=== PATIENT | female | born 2005 | race Caucasian/White ===

== ENCOUNTER 2023-04-04 09:46 | Outpatient (OUT) | payer OTHER, SELFPAY ==
--- NOTE | 2023-04-04 09:47 | US_ITS ---
[address] [address] Patient Name: MACIEJ BARAHONA MRN: [id number] date: 2005 Sex: F Assigned Patient Location: US Current Patient Location: US Accession/Order Number: [id number] Exam Date: 04/04/2023 09:47 Report Date: 04/04/2023 15:45 At the request of: DAGMAR PERLA Procedure: US OB transvaginal EXAMINATION: US OB transvaginal HISTORY: BLEEDING IN EARLY COMPARISON: Ultrasound transvaginal 03/15/2023 FINDINGS: GESTATIONAL SAC: Present and normal appearing. YOLK SAC: Present and normal appearing. POLE: Present and normal appearing. CARDIAC: Present. UTERUS: Normal size and appearance. OVARIES: Right: Normal. Left: Normal. CERVIX: 4.7 cm in length and closed. CUL-DE-SAC: Normal. OTHER: None. AGE BY LMP: 11 weeks 3 days KIYA BY LMP: 10/21/2023 AGE BY US CRL: 12 weeks 2 days KIYA BY US CRL: 10/15/2023 IMPRESSION: 1. Single live intrauterine . Electronically authenticated by: SIENNA POWERS Date: 04/04/2023 15:45
== END 2023-04-04 09:47 ==
LOC: US 09:46
PROVIDERS: Visit Provider Obstetrics & Gynecology
DX: O20.9 Hemorrhage in early pregnancy, unspecified (principal)
CPT/HCPCS: 76817

== ENCOUNTER 2023-04-14 10:41 | Outpatient (OUT) | payer OTHER, SELFPAY ==
[2023-04-14 11:36] LABS: Basophils Percent Auto 0.4 % (0.2-2.0); Eosinophils Absolute Auto 0.2 10^3/uL (0.0-0.7); Eosinophils Percent Auto 2.3 % (0.9-7.0); Hematocrit 41.1 % (36.0-48.0); Hemoglobin 13.7 g/dL (12.0-16.0); Immature Granulocytes Abs Auto 0.05 10^3/uL (0.00-0.03); Immature Granulocytes Pct Auto 0.6 % (0.0-0.5); Lymphocytes Absolute Auto 1.3 10^3/uL (1.2-3.8); Lymphocytes Percent Auto 17.3 % (20.5-60.0); Mean Corpuscular HGB Conc 33.3 g/dL (29.9-35.2); Mean Corpuscular Hemoglobin 28.2 pg (26.7-34.0); Mean Corpuscular Volume 84.6 fL (81.0-99.0); Mean Platelet Volume 8.9 fL (9.5-13.5); Monocytes Absolute Auto 0.4 10^3/uL (0.3-0.8); Monocytes Percent Auto 5.7 % (1.7-12.0); Neutrophils Absolute Auto 5.7 10^3/uL (1.4-6.5); Neutrophils Percent Auto 73.7 % (43.0-75.0); Platelet Count 251 10^3/uL (150-450); Red Blood Count 4.86 10^6/uL (4.20-5.40); Red Cell Distribution Width 13.6 % (11.0-15.0); White Blood Count 7.8 10^3/uL (4.0-11.0)
[2023-04-14 11:57] LABS: Estimated Average Glucose 91 mg/dL; Glycohemoglobin A1C 4.8 % (4.5-6.2)
[2023-04-14 13:37] LABS: Thyroid Stimulating Hormone 0.469 uIU/mL (0.516-4.130)
[2023-04-15 08:16] LABS: HBsAg Screen Negative (Negative); HCV Ab Non Reactive (Non Reactive); HIV Ab/p24 Ag Screen Non Reactive (Non Reactive); Rubella Antibodies, IgG <0.90 index (Immune >0.99)
[2023-04-15 09:07] LABS: Rapid Plasma Reagin, Quant Non Reactive (NonRea<1:1)
== END 2023-04-14 10:42 | disposition home or self-care (01) ==
PROVIDERS: Visit Provider Obstetrics & Gynecology
DX: N91.2 Amenorrhea, unspecified (principal)
CPT/HCPCS: 36415; 83036; 84443; 85025; 86592; 86762; 86803; 86850; 86900; 86901; 87086; 87340; 87389

== ENCOUNTER 2023-05-14 11:27 | Outpatient (OUT) | payer OTHER, SELFPAY ==
[2023-05-14 13:41] LABS: BOX Test Sent Out YES
[2023-05-17 00:07] LABS: AFP Value 44.1 ng/mL (.); Gestat. Age Based On As provided (.); Insulin Dep Diabetes No (.); OSBR Risk 1 IN 10000 (.); Results Report (.)
== END 2023-05-14 11:28 | disposition home or self-care (01) ==
LOC: LAB 11:30
PROVIDERS: Visit Provider Obstetrics & Gynecology
DX: Z34.92 Encounter for supervision of normal pregnancy, unspecified, second trimester (principal)
CPT/HCPCS: 36415; 82105

== ENCOUNTER 2023-05-28 12:55 | Outpatient (OUT) | payer OTHER, SELFPAY ==
--- NOTE | 2023-05-28 13:02 | US_ITS ---
[address] [address] Patient Name: MACIEJ BARAHONA MRN: [id number] date: 2005 Sex: F Assigned Patient Location: US Current Patient Location: US Accession/Order Number: [id number] Exam Date: 05/28/2023 13:10 Report Date: 05/28/2023 16:21 At the request of: DAGMAR PERLA Procedure: US OB transvaginal EXAMINATION: US OB anatomy, US OB transvaginal HISTORY: SECOND TRIMESTER Z34.92 COMPARISON: No relevant comparison available. TECHNIQUE: Transabdominal sonographic examination was performed for obstetrical and evaluation. FINDINGS: Number: 1 Heart Rate: 150 H.B. /min Amniotic Fluid Volume: Subjectively normal Placental Location: Anterior with lower margin 5.4 cm from os Cervix Length: 3.9 cm, closed. ANATOMY: Normal Structures -cerebellum, choroid plexus, cisterna magna, lateral cerebral ventricles, orbits, midline falx, hard palate, four-chamber heart, RVOT, LVOT, stomach, kidneys, bladder, umbilical cord insertion into abdomen, three-vessel cord, cervical spine, thoracic spine, lumbar spine, sacral spine, right upper extremity, left upper extremity, right lower extremity, left lower extremity. SUBOPTIMALLY SEEN: Hard palate ABNORMALITIES: None BIOMETRY: BPD: 4.7 cm 20 weeks 1 day HC: 17.5 cm 20 weeks 0 days AC: 15.2 cm 20 weeks 3 days FL: 3.1 cm 19 weeks 4 days EFW:3280 g; 47% FL/AC: 20.44 FL/BPD: 66.5 HC/AC: 1.15 GESTATIONAL AGE: Age by EDC: 20 weeks 0 days KIYA by EDC: 10/15/2023 Age by current US: 20 weeks 0 days KIYA by current US: 10/15/2023 US/US OB transvaginal IMPRESSION: 1. Single live intrauterine with growth detailed above. 2. Suboptimal visualization of the hard palate due to position. Follow-up recommended. Electronically authenticated by: SIENNA POWERS Date: 05/28/2023 16:21
--- NOTE | 2023-05-28 13:02 | US_ITS ---
[address] [address] Patient Name: MACIEJ BARAHONA MRN: [id number] date: 2005 Sex: F Assigned Patient Location: US Current Patient Location: US Accession/Order Number: [id number] Exam Date: 05/28/2023 13:10 Report Date: 05/28/2023 16:21 At the request of: DAGMAR PERLA Procedure: US OB anatomy EXAMINATION: US OB anatomy, US OB transvaginal HISTORY: SECOND TRIMESTER Z34.92 COMPARISON: No relevant comparison available. TECHNIQUE: Transabdominal sonographic examination was performed for obstetrical and evaluation. FINDINGS: Number: 1 Heart Rate: 150 H.B. /min Amniotic Fluid Volume: Subjectively normal Placental Location: Anterior with lower margin 5.4 cm from os Cervix Length: 3.9 cm, closed. ANATOMY: Normal Structures -cerebellum, choroid plexus, cisterna magna, lateral cerebral ventricles, orbits, midline falx, hard palate, four-chamber heart, RVOT, LVOT, stomach, kidneys, bladder, umbilical cord insertion into abdomen, three-vessel cord, cervical spine, thoracic spine, lumbar spine, sacral spine, right upper extremity, left upper extremity, right lower extremity, left lower extremity. SUBOPTIMALLY SEEN: Hard palate ABNORMALITIES: None BIOMETRY: BPD: 4.7 cm 20 weeks 1 day HC: 17.5 cm 20 weeks 0 days AC: 15.2 cm 20 weeks 3 days FL: 3.1 cm 19 weeks 4 days EFW:3280 g; 47% FL/AC: 20.44 FL/BPD: 66.5 HC/AC: 1.15 GESTATIONAL AGE: Age by EDC: 20 weeks 0 days KIYA by EDC: 10/15/2023 Age by current US: 20 weeks 0 days KIYA by current US: 10/15/2023 US/US OB anatomy IMPRESSION: 1. Single live intrauterine with growth detailed above. 2. Suboptimal visualization of the hard palate due to position. Follow-up recommended. Electronically authenticated by: SIENNA POWERS Date: 05/28/2023 16:21
== END 2023-05-28 12:56 | disposition home or self-care (01) ==
LOC: US 12:55
PROVIDERS: Visit Provider Obstetrics & Gynecology
DX: Z34.92 Encounter for supervision of normal pregnancy, unspecified, second trimester (principal); Z3A.20 20 weeks gestation of pregnancy
CPT/HCPCS: 76805; 76817

== ENCOUNTER 2023-07-21 11:42 | Outpatient (OUT) | payer MEDICAID, SELFPAY ==
[2023-07-21 12:57] LABS: Basophils Absolute Auto 0.1 10^3/uL (0.0-0.1); Basophils Percent Auto 0.4 % (0.2-2.0); Eosinophils Absolute Auto 0.1 10^3/uL (0.0-0.7); Eosinophils Percent Auto 0.6 % (0.9-7.0); Hematocrit 34.1 % (36.0-48.0); Hemoglobin 11.2 g/dL (12.0-16.0); Immature Granulocytes Abs Auto 0.13 10^3/uL (0.00-0.03); Immature Granulocytes Pct Auto 1.1 % (0.0-0.5); Lymphocytes Absolute Auto 1.6 10^3/uL (1.2-3.8); Lymphocytes Percent Auto 13.6 % (20.5-60.0); Mean Corpuscular HGB Conc 32.8 g/dL (29.9-35.2); Mean Corpuscular Volume 88.3 fL (81.0-99.0); Mean Platelet Volume 8.5 fL (9.5-13.5); Monocytes Absolute Auto 0.6 10^3/uL (0.3-0.8); Monocytes Percent Auto 5.1 % (1.7-12.0); Neutrophils Percent Auto 79.2 % (43.0-75.0); Platelet Count 249 10^3/uL (150-450); Red Blood Count 3.86 10^6/uL (4.20-5.40); White Blood Count 11.4 10^3/uL (4.0-11.0)
[2023-07-21 13:14] LABS: Glucose 1 Hour 129 mg/dL
== END 2023-07-21 11:43 | disposition home or self-care (01) ==
LOC: LAB 11:42
PROVIDERS: Visit Provider Physician Assistant
DX: Z34.92 Encounter for supervision of normal pregnancy, unspecified, second trimester (principal)
CPT/HCPCS: 36415; 82950; 85025

== ENCOUNTER 2023-08-09 10:50 | Outpatient (OUT) | payer MEDICAID, SELFPAY ==
--- NOTE | 2023-08-09 | US_ITS ---
[address] [address] Patient Name: MACIEJ BARAHONA MRN: [id number] date: 2005 Sex: F Assigned Patient Location: US Current Patient Location: US Accession/Order Number: [id number] Exam Date: 08/09/2023 10:58 Report Date: 08/09/2023 14:13 At the request of: DAGMAR PERLA Procedure: US OB growth EXAMINATION: US OB growth HISTORY: SIZE INCONSISTENT WITH DATES COMPARISON: No relevant comparison available. FINDINGS: Heart Rate: 147.0 bpm Amniotic Fluid Volume: 13.3 cm Number: 1.0 Position: Breech presentation, longitudinal lie Maximum Vertical Pocket: 4.9 cm cm 3.0 cm cm 3.6 cm cm 1.8 cm cm BIOMETRY: BPD: 7.8 cm cm; 31 weeks 3 days; 68% HC: 28.9 cmcm; 31 weeks 6 days, 54% AC: 25.9 cm cm; 30 weeks 0 days, 33% FL: 5.9 cm cm; 30 weeks 5 days; 42.7 % % EFW: 1586.5 grams, 3 lbs. 8 oz., 40% FL/AC: 22.8 FL/BPD: 75.2 HC/AC: 1.1 GESTATIONAL AGE: Age by EDC: 30 weeks 3 days KIYA by EDC: 10/15/2023 Age by US: 31 weeks 0 days KIYA by US: 10/11/2023 US/US OB growth IMPRESSION: Normal interval growth Electronically authenticated by: AFTAB HUANG Date: 08/09/2023 14:13
== END 2023-08-09 10:51 | disposition home or self-care (01) ==
LOC: US 10:50
PROVIDERS: Visit Provider Obstetrics & Gynecology
DX: O26.849 Uterine size-date discrepancy, unspecified trimester (principal); Z36.2 Encounter for other antenatal screening follow-up; Z3A.30 30 weeks gestation of pregnancy
CPT/HCPCS: 76816

== ENCOUNTER 2023-08-27 12:52 | Observation (INO) | payer OTHER, SELFPAY ==
[2023-08-27 13:04] VITALS: BP 113/74; PULSE 121
[2023-08-27 13:40] LABS: Bilirubin Urine NEGATIVE (NEGATIVE); Blood Urine NEGATIVE (NEGATIVE); Clarity Urine CLEAR (CLEAR); Color Urine YELLOW (YELLOW); Glucose Urine UA NEGATIVE (NEGATIVE); Ketones Urine TRACE mg/dL (NEGATIVE); Leukocyte Esterase Urine SMALL (NEGATIVE); Nitrite Urine NEGATIVE (NEGATIVE); Protein Urine TRACE mg/dL (NEG/TRACE); Specific Gravity Urine >=1.030 (1.005-1.025)
[2023-08-27 13:43] LABS: Urine Microscopic Indicated YES
[2023-08-27 13:51] LABS: Bacteria Urine MODERATE #/HPF (NONE SEEN); Cast Seen? NONE SEEN #/LPF (NONE SEEN); Crystals Seen? None Seen #/HPF (None Seen); Mucus Urine SMALL (NONE SEEN); Squamous Epithelial Cell Urine MODERATE #/LPF (NONE/RARE)
[2023-08-27 13:52] LABS: Urine Culture Indicated YES
--- NOTE | 2023-08-27 14:04 | US_ITS ---
[place] [address] Patient Name: MACIEJ BARAHONA MRN: [id number] date: 2005 Sex: F Assigned Patient Location: [facility] Current Patient Location: [facility] Accession/Order Number: [id number] Exam Date: 08/27/2023 14:08 Report Date: 08/27/2023 15:14 At the request of: DAGMAR LOREDO Procedure: US OB cervical length EXAM: US OB placenta, US OB cervical length HISTORY: abdominal pain/spotting COMPARISON: None. TECHNIQUE: Transabdominal images FINDINGS: position: Cephalic presentation, longitudinal lie Number of umbilical arteries: 2 Placenta: Anterior, grade 0. The cord inserts into the placenta 3.5 cm from the placental edge. Area of anechoic echogenicity at the placental myometrial junction measuring 1.4 x 0.6 cm Heart rate: 153 beats minute Cervix: 3.2 cm, closed Findings discussed with Dr. Loredo by telephone 3:13 PM US/US OB cervical length IMPRESSION: Closed cervix measuring 3.2 cm in length Area of anechoic echogenicity of the placental myometrial interface, while this could represent a deep placental rivas, consideration should be given to a small retroplacental hematoma Electronically authenticated by: AFTAB HUANG Date: 08/27/2023 15:14
--- NOTE | 2023-08-27 14:04 | US_ITS ---
[place] [address] Patient Name: MACIEJ BARAHONA MRN: [id number] date: 2005 Sex: F Assigned Patient Location: [facility] Current Patient Location: [facility] Accession/Order Number: [id number] Exam Date: 08/27/2023 14:08 Report Date: 08/27/2023 15:14 At the request of: DAGMAR LOREDO Procedure: US OB placenta EXAM: US OB placenta, US OB cervical length HISTORY: abdominal pain/spotting COMPARISON: None. TECHNIQUE: Transabdominal images FINDINGS: position: Cephalic presentation, longitudinal lie Number of umbilical arteries: 2 Placenta: Anterior, grade 0. The cord inserts into the placenta 3.5 cm from the placental edge. Area of anechoic echogenicity at the placental myometrial junction measuring 1.4 x 0.6 cm Heart rate: 153 beats minute Cervix: 3.2 cm, closed Findings discussed with Dr. Loredo by telephone 3:13 PM US/US OB placenta IMPRESSION: Closed cervix measuring 3.2 cm in length Area of anechoic echogenicity of the placental myometrial interface, while this could represent a deep placental rivas, consideration should be given to a small retroplacental hematoma Electronically authenticated by: AFTAB HUANG Date: 08/27/2023 15:14
== END 2023-08-27 14:55 | disposition home or self-care (01) ==
LOC: FBCO 12:54 → FBC 12:54
PROVIDERS: Admitting Provider Obstetrics & Gynecology; Visit Provider Obstetrics & Gynecology
DX: O26.899 Other specified pregnancy related conditions, unspecified trimester (principal); R10.30 Lower abdominal pain, unspecified; O26.859 Spotting complicating pregnancy, unspecified trimester; Z3A.00 Weeks of gestation of pregnancy not specified
CPT/HCPCS: 59025; 76815; 76817; 81001; 87086; G0378; G0379

== ENCOUNTER 2023-08-28 07:23 | Outpatient (OUT) | payer OTHER, SELFPAY ==
--- NOTE | 2023-08-28 17:14 | US_ITS ---
[address] [address] Patient Name: MACIEJ BARAHONA MRN: [id number] date: 2005 Sex: F Assigned Patient Location: [facility] Current Patient Location: [facility] Accession/Order Number: [id number] Exam Date: 08/28/2023 17:15 Report Date: 08/29/2023 15:36 At the request of: DAGMAR PERLA Procedure: US OB BPP w non-stress EXAMINATION: US OB BPP w non-stress HISTORY: placental lakes COMPARISON: No relevant comparison available. TECHNIQUE: Ultrasound biophysical profile was performed in the radiology department. BREATHING MOVEMENTS: 2.0 GROSS BODY MOVEMENTS: 2.0 TONE: 2.0 QUALITATIVE AMNIOTIC FLUID VOLUME: 2.0 PRESENTATION: CEPHALIC HEART RATE: 157.9 bpm bpm. AMNIOTIC FLUID VOLUME: 12.9 cm GESTATIONAL AGE: 33 weeks 1 days CONCLUSION: 1. Total biophysical profile score 8.0. 2. 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 Electronically authenticated by: SIENNA POWERS Date: 08/29/2023 15:36
[2023-08-28 17:49] VITALS: BP 141/81; PULSE 109
[2023-08-28 17:51] VITALS: BP 118/76; PULSE 108
== END 2023-08-28 18:25 | disposition home or self-care (01) ==
LOC: US 07:23 → FBC 17:11
PROVIDERS: Visit Provider Obstetrics & Gynecology
DX: O43.893 Other placental disorders, third trimester (principal); Z3A.33 33 weeks gestation of pregnancy
CPT/HCPCS: 76818

== ENCOUNTER 2023-09-19 19:21 | Outpatient (REF) | payer OTHER, SELFPAY | END 2023-09-19 19:22 | disposition home or self-care (01) | LOC: LAB 19:21 | PROVIDERS: Visit Provider Obstetrics & Gynecology | DX: Z34.93 Encounter for supervision of normal pregnancy, unspecified, third trimester (principal) | CPT/HCPCS: 87081 ==

== ENCOUNTER 2023-09-25 07:10 | Outpatient (OUT) | payer OTHER, SELFPAY | END 2023-09-25 07:11 | disposition home or self-care (01) | LOC: US 07:10 | PROVIDERS: Visit Provider Obstetrics & Gynecology | DX: O43.899 Other placental disorders, unspecified trimester (principal) ==

== ENCOUNTER 2023-09-27 07:26 | Observation (INO) | payer OTHER, SELFPAY ==
[2023-09-27 07:37] VITALS: BP 119/78; PULSE 127
--- NOTE | 2023-09-27 08:09 | US_ITS ---
[address] [address] Patient Name: MACIEJ BARAHONA MRN: [id number] date: 2005 Sex: F Assigned Patient Location: [facility] Current Patient Location: [facility] Accession/Order Number: [id number] Exam Date: 09/27/2023 08:10 Report Date: 09/27/2023 08:43 At the request of: PHILLIP MATIAS Procedure: US OB amniotic fluid vol PROCEDURE: US OB amniotic fluid vol, 09/27/2023 8:10 AM EST CLINICAL INDICATIONS: Encounter for third trimester , possible premature rupture of membranes, symptoms for 3 hours 1 para 0 Expected gestational age: 37 weeks 3 days Expected KIYA: 10/15/2023 COMPARISON: 08/28/2023 biophysical profile assessment TECHNIQUE: Limited third trimester obstetric sonogram, amniotic fluid assessment. FINDINGS: Single living intrauterine identified, cephalic presentation. body, cardiac activity is noted, heart rate 134 bpm. Amniotic fluid index 11.3 cm, maximum vertical pocket 6.5 cm. 5-95th percentile. biometry: Not performed. anatomic assessment: Not performed. Anterior placenta, incompletely assessed. US/US OB amniotic fluid vol IMPRESSION: 1. Single living intrauterine , cephalic presentation 2. 11.3 cm amniotic fluid index, maximum vertical pocket 6.5 cm, 5-95th percentile Electronically authenticated by: TORIN MANLEY Date: 09/27/2023 08:43
[2023-09-27 08:20] LABS: Amnisure NEGATIVE (NEGATIVE)
== END 2023-09-27 08:50 | disposition home or self-care (01) ==
PROVIDERS: Admitting Provider Midwife; Visit Provider Midwife
DX: Z03.71 Encounter for suspected problem with amniotic cavity and membrane ruled out (principal); Z3A.37 37 weeks gestation of pregnancy
CPT/HCPCS: 59025; 76815; 84112; G0378; G0379

== ENCOUNTER 2023-10-07 16:34 | Observation (INO) | payer OTHER, SELFPAY ==
[2023-10-07 17:03] VITALS: BP 113/72; PULSE 110
[2023-10-07 17:15] LABS: Bilirubin Urine NEGATIVE (NEGATIVE); Blood Urine TRACE-L (NEGATIVE); Color Urine YELLOW (YELLOW); Glucose Urine UA NEGATIVE (NEGATIVE); Ketones Urine 15 mg/dL (NEGATIVE); Leukocyte Esterase Urine SMALL (NEGATIVE); Nitrite Urine NEGATIVE (NEGATIVE); Protein Urine 100 mg/dL (NEG/TRACE); Urine Microscopic Indicated YES; pH Urine 7.5 (5.0-9.0)
[2023-10-07 17:20] LABS: Clarity Urine SLIGHTLY CLOUDY (CLEAR)
[2023-10-07 17:21] LABS: Bacteria Urine TRACE #/HPF (NONE SEEN); Cast Seen? NONE SEEN #/LPF (NONE SEEN); Crystals Seen? None Seen #/HPF (None Seen); Mucus Urine TRACE (NONE SEEN); RBC Urine 0-2 #/HPF (0-2); Squamous Epithelial Cell Urine RARE #/LPF (NONE/RARE); Urine Culture Indicated YES
[2023-10-07 17:25] LABS: Basophils Percent Auto 0.3 % (0.2-2.0); Eosinophils Percent Auto 0.1 % (0.9-7.0); Hematocrit 31.6 % (36.0-48.0); Hemoglobin 9.9 g/dL (12.0-16.0); Immature Granulocytes Abs Auto 0.12 10^3/uL (0.00-0.03); Immature Granulocytes Pct Auto 0.9 % (0.0-0.5); Lymphocytes Absolute Auto 1.9 10^3/uL (1.2-3.8); Lymphocytes Percent Auto 14.6 % (20.5-60.0); Mean Corpuscular HGB Conc 31.3 g/dL (29.9-35.2); Mean Corpuscular Hemoglobin 24.6 pg (26.7-34.0); Mean Corpuscular Volume 78.6 fL (81.0-99.0); Mean Platelet Volume 9.2 fL (9.5-13.5); Monocytes Absolute Auto 0.6 10^3/uL (0.3-0.8); Neutrophils Percent Auto 79.1 % (43.0-75.0); Platelet Count 318 10^3/uL (150-450); Red Blood Count 4.02 10^6/uL (4.20-5.40); Red Cell Distribution Width 13.8 % (11.0-15.0); White Blood Count 12.7 10^3/uL (4.0-11.0)
[2023-10-07 18:29] LABS: Amphetamine Screen Urine NEGATIVE (NEGATIVE); Barbiturates Screen Urine NEGATIVE (NEGATIVE); Benzodiazepines Screen Urine NEGATIVE (NEGATIVE); Buprenorphine Screen Urine NEGATIVE (NEGATIVE); Cannabinoid Screen Urine POSITIVE (NEGATIVE); Cocaine Screen Urine NEGATIVE (NEGATIVE); Methadone Screen Urine NEGATIVE (NEGATIVE); Methamphetamines Screen Urine NEGATIVE (NEGATIVE); Opiate Screen Urine NEGATIVE (NEGATIVE); Oxycodone Screen Urine NEGATIVE (NEGATIVE); Phencyclidine Screen Urine NEGATIVE (NEGATIVE); Tricyclic Antidepressant Urine NEGATIVE (NEGATIVE)
[2023-10-19 07:08] LABS: Cannabinoid Positive (.); Carboxy THC Conf, MS, UR 40 ng/mL (Cutoff=10)
== END 2023-10-07 19:50 | disposition home or self-care (01) ==
PROVIDERS: Admitting Provider Obstetrics & Gynecology; Visit Provider Obstetrics & Gynecology
DX: O47.1 False labor at or after 37 completed weeks of gestation (principal); Z3A.38 38 weeks gestation of pregnancy
CPT/HCPCS: 36415; 59025; 80307; 80349; 81001; 85025; 86850; 86900; 86901; 87086; 87150; 87186; G0378; G0379

== ENCOUNTER 2023-10-08 17:03 | Inpatient (IN) | payer OTHER, SELFPAY ==
[2023-10-08] VITALS (14 sets, daily range): BP systolic 83–131; BP diastolic 51–79; PULSE 98–134; RESP 16–18; TEMP 36.6–37.1
[2023-10-08 18:38] LABS: Amphetamine Screen Urine NEGATIVE (NEGATIVE); Barbiturates Screen Urine NEGATIVE (NEGATIVE); Benzodiazepines Screen Urine NEGATIVE (NEGATIVE); Buprenorphine Screen Urine NEGATIVE (NEGATIVE); Cannabinoid Screen Urine NEGATIVE (NEGATIVE); Cocaine Screen Urine NEGATIVE (NEGATIVE); Methadone Screen Urine NEGATIVE (NEGATIVE); Methamphetamines Screen Urine NEGATIVE (NEGATIVE); Opiate Screen Urine NEGATIVE (NEGATIVE); Oxycodone Screen Urine NEGATIVE (NEGATIVE); Phencyclidine Screen Urine NEGATIVE (NEGATIVE); Tricyclic Antidepressant Urine NEGATIVE (NEGATIVE)
[2023-10-08] MEDS: DINOPROSTONE 10 MG VAG INSERT.ER VAGINAL (18:41)
[2023-10-08] MEDS: FLUCONAZOLE 150 MG TABLET PO (21:11)
[2023-10-08] MEDS: 0.9 % SODIUM CHLORIDE 1,000 ML 1000 ML IV (23:50)
[2023-10-09] VITALS (49 sets, daily range): BP systolic 88–126; BP diastolic 50–88; PULSE 55–110; RESP 16–18; TEMP 36.7–36.8
[2023-10-09] MEDS: ROPIVACAINE HCL/PF 400 MG/200 ML PREMIX 6 MG EPIDURAL (00:53)
[2023-10-09] MEDS: LIDOCAINE HCL 2% PF 100 MG/5 ML VIAL INJ (00:54)
[2023-10-09] MEDS: FENTANYL CITRATE/PF 100 MCG/2 ML VIAL EPIDURAL (00:55)
[2023-10-09] MEDS: 0.9 % SODIUM CHLORIDE 1,000 ML 125 ML IV (00:58)
--- NOTE | 2023-10-09 05:32 | PM.OBPRCVD ---
Procedure Intrapartal events: None Induction method: per misoprostol protocol Delivery monitor: none Route of delivery: Laceration description: periurethral - 1st degree Delivery repair: Vicryl Estimated blood loss (mL): 200 Anesthesia type: Epidural Disposition: floor Infant Delivery date: 10/09/23 Gender: female presentation: vertex Placental delivery description: Spontaneous cord description: 3 Vessels and Nuchal Cord
[2023-10-09] MEDS: IBUPROFEN 600 MG TABLET PO ×2 (07:06→18:36)
--- NOTE | 2023-10-09 08:21 | PC.NURSE ---
mother requesting pacifier for . RN educates patient on pacifier use with breast feeding. patient accepts education from RN and continues to request pacifier and states, if it causes her to not want to go to the breast for breast feeding then we will do formula. i understand your education but i want the pacifier.
--- NOTE | 2023-10-09 09:53 | W.PC.ACHO ---
Registration Status: ADM IN Primary Language: [place] Island[place] Preferred Language: [place] Active Medications Generic Name Dose Route Start Last Admin Trade Name Freq PRN Reason Stop Dose Admin Acetaminophen 650 mg 10/09/23 05:28 Acetaminophen 325 Mg Tablet PO Q6H PRN Mild Pain Al Hydroxide/Mg Hydroxide 2,400 mg 10/09/23 05:28 Magnesium Hydroxide 2,400 Mg/10 Ml Oral.Susp PO Q6H PRN Dyspepsia Benzocaine/Menthol 1 applic 10/09/23 05:28 Benzocaine/Menthol 85 Gram [place] Bottle TOPICAL Q2H PRN Pain Carboprost Tromethamine 250 mcg 10/08/23 18:12 Carboprost Tromethamine 250 Mcg/Ml 1 Ml Vial IM 10/10/23 18:13 Q15M PRN Bleeding Diphenhydramine HCl 25 mg 10/08/23 19:18 Diphenhydramine Hcl 50 Mg/Ml (1ml) Vial IV 10/09/23 19:19 Q6H PRN Itching Diphtheria/Pertussis/Tetanus Vacc 0.5 ml 10/11/23 09:00 Adacel Diph,Pertuss(Acell),Tet Vac/Pf 0.5 Ml Adult Syringe IM 10/11/23 09:01 .ONCE ONE Docusate Sodium 100 mg 10/10/23 09:00 Docusate Sodium 100 Mg Capsule PO BID LESA Ephedrine Sulfate 5 mg 10/08/23 19:18 Ephedrine Sulfate 50 Mg/Ml Vial IV 10/09/23 19:19 Q5M PRN Blood Pressure - Low Fentanyl Citrate 100 mcg 10/08/23 19:18 10/09/23 00:55 Fentanyl Citrate/Pf 100 Mcg/2 Ml Vial EPIDURAL 100 mcg ONCE PRN Administration epidural Sodium Chloride 1,000 mls @ 125 mls/hr 10/08/23 18:15 10/09/23 00:58 Sodium Chloride 0.9% 1,000 Ml IV 125 mls/hr .Q8H LESA Administration Oxytocin/Sodium Chloride 10 units in 500 mls @ 6 mls/hr 10/08/23 18:30 Pitocin 10 Unit/500 Ml-Ns IV CONT LESA Protocol 2 MILLIUNIT/MIN Ropivacaine/Sodium Chloride 400 mg in 200 mls @ 6 mls/hr 10/08/23 19:30 10/09/23 00:53 Naropin 0.2% 400 Mg/200 Ml Bag EPIDURAL 6 mls/hr Q24H LESA Administration Oxytocin 20 unit/ Sodium 1,002 mls @ 125 mls/hr 10/09/23 05:30 10/09/23 05:22 Chloride IV 10/09/23 13:29 125 mls/hr Q8H LESA Administration Ibuprofen 600 mg 10/09/23 05:28 10/09/23 07:06 Ibuprofen 600 Mg Tablet PO 600 mg Q6H PRN Administration Moderate Pain Lidocaine 5 ml 10/08/23 18:12 Lidocaine Viscous 2% 15 Ml Solution TOPICAL ONCE PRN Pain Lidocaine 1 ml 10/08/23 18:12 Lidocaine Hcl 1% 200 Mg/20 Ml Mdv INJ ONCE PRN Pain Lidocaine 5 ml 10/08/23 19:18 10/09/23 00:54 Lidocaine Hcl 2% Pf 100 Mg/5 Ml Vial INJ 10/09/23 19:19 5 ml Q1H PRN Administration local anesth Measles/Mumps/Rubella Vaccine Live 0.5 ml 10/11/23 09:00 Measles,Mumps,Rubella Vacc/Pf 0.5 Ml Vial SQ 10/11/23 09:01 .ONCE ONE Methylergonovine Maleate 0.2 mg 10/08/23 18:12 Methylergonovine Maleate 0.2 Mg/Ml Ampule IM 10/10/23 18:13 ONCE PRN Uterine Contractility/Contract Methylergonovine Maleate 0.2 mg 10/08/23 18:12 Methylergonovine Maleate 0.2 Mg Tablet PO 10/10/23 18:13 Q4H PRN Uterine Contractility/Contract Misoprostol 600 mcg 10/08/23 18:12 Misoprostol 100 Mcg Tablet PO 10/10/23 18:13 ONCE PRN Uterine Bleeding Misoprostol 800 mcg 10/08/23 18:12 Misoprostol 100 Mcg Tablet SL 10/10/23 18:13 ONCE PRN Uterine Bleeding Misoprostol 1,000 mcg 10/08/23 18:12 Misoprostol 100 Mcg Tablet ME 10/10/23 18:13 ONCE PRN Uterine Bleeding Naloxone HCl 0.4 mg 10/08/23 19:18 Naloxone Hcl 0.4 Mg/Ml Vial IV 10/09/23 19:19 ONCE PRN resp depression Ondansetron HCl 4 mg 10/08/23 18:12 Ondansetron Pf 4 Mg/2 Ml Vial IV Q6H PRN Nausea And Vomiting Ondansetron HCl 4 mg 10/08/23 18:12 Ondansetron 4 Mg Rapdis Tablet SL Q6H PRN Nausea And Vomiting Oxytocin 10 unit 10/08/23 18:12 Oxytocin 10 Unit/Ml Vial IM 10/10/23 18:13 ONCE PRN uterine contractions Senna 17.2 mg 10/09/23 20:00 Sennosides 8.6 Mg Tablet PO QHS PRN Constipation Simethicone 80 mg 10/09/23 05:28 Simethicone 80 Mg Tab.Chew PO QID PRN Abdominal Distention Temazepam 15 mg 10/09/23 05:28 Temazepam 15 Mg Capsule PO QHS PRN Sleep Witch Elli/Glycerin 1 pad 10/09/23 05:28 Glycerin/Witch Elli Pads TOPICAL Q2H PRN Pain Diet Category Date Time Status Regular Consistency Diet Diet 10/09/23 05:29 Active IV Insertion/Site Date of IV Line Insertion [ 10/08/23 Long PIV (>1.75 in) 20g left Forearm] IV Insertion Time [Long PIV (> 17:50 1.75 in) 20g left Forearm] Neurology Patient orientation (short person,place,time list) Respiratory Oxygen Delivery Method Room Air Oxygen Delivery Method Room Air Cardiology Heart Sounds Regular
[2023-10-09] MEDS: BENZOCAINE/MENTHOL 85 GRAM SPRAY BOTTLE 1 APPLIC TOPICAL (11:23)
[2023-10-09] MEDS: GLYCERIN/WITCH HAZEL PADS 1 PAD TOPICAL (11:23)
--- NOTE | 2023-10-09 12:50 | PC.NURSE ---
put breast to breast with RN help. patient's spouse is at bedside observing demonstration of to breast with proper latch. RN educates to patient that any pinching of the nipple while breast feeding is not a proper latch and to readjust the latch. patient agrees to do so and is receptive for teaching. patient successfully keeps to breast appropriately. patient reports no pain.
--- NOTE | 2023-10-09 14:56 | PC.NURSE ---
pt breast feeds on left breast and then offered right breast to baby but baby remained too sleepy and was reluctant. patient took initiate per self to pump other breast for breast stimulation and milk production and was able to get about 5ml of colostrum expressed out per own pump.
--- NOTE | 2023-10-09 20:13 | W.PC.ACHO ---
Registration Status: ADM IN Primary Language: [place] Preferred Language: [place] Report received from Raphael Torres at 1930. Active Medications Generic Name Dose Route Start Last Admin Trade Name Freq PRN Reason Stop Dose Admin Acetaminophen 650 mg 10/09/23 05:28 Acetaminophen 325 Mg Tablet PO Q6H PRN Mild Pain Al Hydroxide/Mg Hydroxide 2,400 mg 10/09/23 05:28 Magnesium Hydroxide 2,400 Mg/10 Ml Oral.Susp PO Q6H PRN Dyspepsia Benzocaine/Menthol 1 applic 10/09/23 05:28 10/09/23 11:23 Benzocaine/Menthol 85 Gram [place] Bottle TOPICAL 1 applic Q2H PRN Administration Pain Carboprost Tromethamine 250 mcg 10/08/23 18:12 Carboprost Tromethamine 250 Mcg/Ml 1 Ml Vial IM 10/10/23 05:00 Q15M PRN Bleeding Diphtheria/Pertussis/Tetanus Vacc 0.5 ml 10/11/23 09:00 Adacel Diph,Pertuss(Acell),Tet Vac/Pf 0.5 Ml Adult Syringe IM 10/11/23 09:01 .ONCE ONE Docusate Sodium 100 mg 10/10/23 09:00 Docusate Sodium 100 Mg Capsule PO BID LESA Sodium Chloride 1,000 mls @ 125 mls/hr 10/08/23 18:15 10/09/23 00:58 Sodium Chloride 0.9% 1,000 Ml IV 125 mls/hr .Q8H LESA Administration Ibuprofen 600 mg 10/09/23 05:28 10/09/23 18:36 Ibuprofen 600 Mg Tablet PO 600 mg Q6H PRN Administration Moderate Pain Measles/Mumps/Rubella Vaccine Live 0.5 ml 10/11/23 09:00 Measles,Mumps,Rubella Vacc/Pf 0.5 Ml Vial SQ 10/11/23 09:01 .ONCE ONE Methylergonovine Maleate 0.2 mg 10/08/23 18:12 Methylergonovine Maleate 0.2 Mg/Ml Ampule IM 10/10/23 05:00 ONCE PRN Uterine Contractility/Contract Methylergonovine Maleate 0.2 mg 10/08/23 18:12 Methylergonovine Maleate 0.2 Mg Tablet PO 10/10/23 05:00 Q4H PRN Uterine Contractility/Contract Misoprostol 600 mcg 10/08/23 18:12 Misoprostol 100 Mcg Tablet PO 10/10/23 05:00 ONCE PRN Uterine Bleeding Misoprostol 800 mcg 10/08/23 18:12 Misoprostol 100 Mcg Tablet SL 10/10/23 05:00 ONCE PRN Uterine Bleeding Misoprostol 1,000 mcg 10/08/23 18:12 Misoprostol 100 Mcg Tablet TX 10/10/23 05:00 ONCE PRN Uterine Bleeding Ondansetron HCl 4 mg 10/08/23 18:12 Ondansetron Pf 4 Mg/2 Ml Vial IV Q6H PRN Nausea And Vomiting Ondansetron HCl 4 mg 10/08/23 18:12 Ondansetron 4 Mg Rapdis Tablet SL Q6H PRN Nausea And Vomiting Senna 17.2 mg 10/09/23 20:00 Sennosides 8.6 Mg Tablet PO QHS PRN Constipation Simethicone 80 mg 10/09/23 05:28 Simethicone 80 Mg Tab.Chew PO QID PRN Abdominal Distention Temazepam 15 mg 10/09/23 05:28 Temazepam 15 Mg Capsule PO QHS PRN Sleep Witch Elli/Glycerin 1 pad 10/09/23 05:28 10/09/23 11:23 Glycerin/Witch Elli Pads TOPICAL 1 pad Q2H PRN Administration Pain Diet Category Date Time Status Regular Consistency Diet Diet 10/09/23 05:29 Active Consults Category Date Time Status Consult to Logistics Vice President Routine Cons 10/09/23 Ordered Respiratory Oxygen Delivery Method Room Air Oxygen Delivery Method Room Air Oxygen Delivery Method Room Air Cardiology Heart Sounds Regular Renal Bladder Pattern Continent
[2023-10-10] VITALS (7 sets, daily range): BP systolic 119–130; BP diastolic 59–79; PULSE 72–107; RESP 14–16; TEMP 36.5–36.7
[2023-10-10 06:56] LABS: Basophils Absolute Auto 0.1 10^3/uL (0.0-0.1); Basophils Percent Auto 0.4 % (0.2-2.0); Eosinophils Percent Auto 0.3 % (0.9-7.0); Hematocrit 28.4 % (36.0-48.0); Hemoglobin 8.5 g/dL (12.0-16.0); Immature Granulocytes Pct Auto 1.5 % (0.0-0.5); Lymphocytes Absolute Auto 2.8 10^3/uL (1.2-3.8); Lymphocytes Percent Auto 20.8 % (20.5-60.0); Mean Corpuscular HGB Conc 29.9 g/dL (29.9-35.2); Mean Corpuscular Hemoglobin 24.1 pg (26.7-34.0); Mean Corpuscular Volume 80.7 fL (81.0-99.0); Mean Platelet Volume 9.2 fL (9.5-13.5); Monocytes Absolute Auto 0.8 10^3/uL (0.3-0.8); Monocytes Percent Auto 6.2 % (1.7-12.0); Neutrophils Absolute Auto 9.5 10^3/uL (1.4-6.5); Neutrophils Percent Auto 70.8 % (43.0-75.0); Platelet Count 342 10^3/uL (150-450); Red Blood Count 3.52 10^6/uL (4.20-5.40); Red Cell Distribution Width 14.4 % (11.0-15.0); White Blood Count 13.4 10^3/uL (4.0-11.0)
--- NOTE | 2023-10-10 07:30 | W.PC.ACHO ---
Registration Status: ADM IN Primary Language: Taiwanese Preferred Language: Taiwanese Report given to Sohail Gates RN. Active Medications Generic Name Dose Route Start Last Admin Trade Name Freq PRN Reason Stop Dose Admin Acetaminophen 650 mg 10/09/23 05:28 Acetaminophen 325 Mg Tablet PO Q6H PRN Mild Pain Al Hydroxide/Mg Hydroxide 2,400 mg 10/09/23 05:28 Magnesium Hydroxide 2,400 Mg/10 Ml Oral.Susp PO Q6H PRN Dyspepsia Benzocaine/Menthol 1 applic 10/09/23 05:28 10/09/23 11:23 Benzocaine/Menthol 85 Gram [place] Bottle TOPICAL 1 applic Q2H PRN Administration Pain Diphtheria/Pertussis/Tetanus Vacc 0.5 ml 10/11/23 09:00 Adacel Diph,Pertuss(Acell),Tet Vac/Pf 0.5 Ml Adult Syringe IM 10/11/23 09:01 .ONCE ONE Docusate Sodium 100 mg 10/10/23 09:00 Docusate Sodium 100 Mg Capsule PO BID LESA Sodium Chloride 1,000 mls @ 125 mls/hr 10/08/23 18:15 10/09/23 00:58 Sodium Chloride 0.9% 1,000 Ml IV 125 mls/hr .Q8H LESA Administration Ibuprofen 600 mg 10/09/23 05:28 10/09/23 18:36 Ibuprofen 600 Mg Tablet PO 600 mg Q6H PRN Administration Moderate Pain Measles/Mumps/Rubella Vaccine Live 0.5 ml 10/11/23 09:00 Measles,Mumps,Rubella Vacc/Pf 0.5 Ml Vial SQ 10/11/23 09:01 .ONCE ONE Ondansetron HCl 4 mg 10/08/23 18:12 Ondansetron Pf 4 Mg/2 Ml Vial IV Q6H PRN Nausea And Vomiting Ondansetron HCl 4 mg 10/08/23 18:12 Ondansetron 4 Mg Rapdis Tablet SL Q6H PRN Nausea And Vomiting Senna 17.2 mg 10/09/23 20:00 Sennosides 8.6 Mg Tablet PO QHS PRN Constipation Simethicone 80 mg 10/09/23 05:28 Simethicone 80 Mg Tab.Chew PO QID PRN Abdominal Distention Temazepam 15 mg 10/09/23 05:28 Temazepam 15 Mg Capsule PO QHS PRN Sleep Witch Elli/Glycerin 1 pad 10/09/23 05:28 10/09/23 11:23 Glycerin/Witch Elli Pads TOPICAL 1 pad Q2H PRN Administration Pain Respiratory Oxygen Delivery Method Room Air Oxygen Delivery Method Room Air Oxygen Delivery Method Room Air Oxygen Delivery Method Room Air Oxygen Delivery Method Room Air Oxygen Delivery Method Room Air Oxygen Delivery Method Room Air Cardiology Heart Sounds Regular Heart Sounds Regular Renal Bladder Pattern Continent Bladder Pattern Continent Bladder Pattern Continent Bladder Pattern Continent
[2023-10-10] MEDS: DOCUSATE SODIUM 100 MG CAPSULE PO (09:33)
--- NOTE | 2023-10-10 20:16 | P.OBPN_ITS ---
OB - PN: Subj Subjective Patient comments: no complaints and pain well controlled [place] status: doing well Exam Constitutional Vital Signs, click to edit/add: Last Vital Signs Temp 98.1 F 10/10/23 16:09 Pulse 106 H 10/10/23 15:53 Resp 14 10/10/23 16:06 BP 120/79 10/10/23 15:53 O2 Del Method Room Air 10/10/23 16:06 Documenting provider has reviewed patient's vital signs: yes Common normals: no apparent distress Respiratory Common normals: normal respiratory effort and clear to auscultation bilaterally Cardio Common normals: regular rate and regular rhythm GI Common normals: Normal to inspection, nondistended, normoactive bowel sounds present Extremity Common normals: no clubbing, cyanosis or edema Results Labs Labs: Short CBC 10/10/23 Range/Units 06:33 WBC 13.4 H (4.0-11.0) 10^3/uL Hgb 8.5 L (12.0-16.0) g/dL Hct 28.4 L (36.0-48.0) % Plt Count 342 (150-450) 10^3/uL OB - PN: A/P Plan - Vaginal Delivery day: 1 Plan: routine care Time Spent with Patient Time: Total time spent is greater than 50% in coordination of care (as documented) at patient's floor/unit and/or counseling patient: Total time spent with greater than 50% in coordination of care (as documented) at patient's floor/unit and/or counseling patient: less than 15 minutes
[2023-10-11 01:44] VITALS: BP 117/86; PULSE 86
[2023-10-11 01:45] VITALS: RESP 16
[2023-10-11 02:30] VITALS: RESP 16; TEMP 36.6
--- NOTE | 2023-10-11 05:59 | W.PC.ACHO ---
Registration Status: ADM IN Primary Language: Macedonian Preferred Language: Macedonian Report given to Sohail Gates RN. Active Medications Generic Name Dose Route Start Last Admin Trade Name Freq PRN Reason Stop Dose Admin Acetaminophen 650 mg 10/09/23 05:28 Acetaminophen 325 Mg Tablet PO Q6H PRN Mild Pain Al Hydroxide/Mg Hydroxide 2,400 mg 10/09/23 05:28 Magnesium Hydroxide 2,400 Mg/10 Ml Oral.Susp PO Q6H PRN Dyspepsia Benzocaine/Menthol 1 applic 10/09/23 05:28 10/09/23 11:23 Benzocaine/Menthol 85 Gram Hardy Bottle TOPICAL 1 applic Q2H PRN Administration Pain Diphtheria/Pertussis/Tetanus Vacc 0.5 ml 10/11/23 09:00 Adacel Diph,Pertuss(Acell),Tet Vac/Pf 0.5 Ml Adult Syringe IM 10/11/23 09:01 .ONCE ONE Docusate Sodium 100 mg 10/10/23 09:00 10/10/23 21:22 Docusate Sodium 100 Mg Capsule PO Not Given BID LESA Sodium Chloride 1,000 mls @ 125 mls/hr 10/08/23 18:15 10/09/23 05:22 Sodium Chloride 0.9% 1,000 Ml IV Infused .Q8H LESA Infusion Ibuprofen 600 mg 10/09/23 05:28 10/09/23 18:36 Ibuprofen 600 Mg Tablet PO 600 mg Q6H PRN Administration Moderate Pain Measles/Mumps/Rubella Vaccine Live 0.5 ml 10/11/23 09:00 Measles,Mumps,Rubella Vacc/Pf 0.5 Ml Vial SQ 10/11/23 09:01 .ONCE ONE Ondansetron HCl 4 mg 10/08/23 18:12 Ondansetron Pf 4 Mg/2 Ml Vial IV Q6H PRN Nausea And Vomiting Ondansetron HCl 4 mg 10/08/23 18:12 Ondansetron 4 Mg Rapdis Tablet SL Q6H PRN Nausea And Vomiting Senna 17.2 mg 10/09/23 20:00 Sennosides 8.6 Mg Tablet PO QHS PRN Constipation Simethicone 80 mg 10/09/23 05:28 Simethicone 80 Mg Tab.Chew PO QID PRN Abdominal Distention Temazepam 15 mg 10/09/23 05:28 Temazepam 15 Mg Capsule PO QHS PRN Sleep Witch Elli/Glycerin 1 pad 10/09/23 05:28 10/09/23 11:23 Glycerin/Witch Elli Pads TOPICAL 1 pad Q2H PRN Administration Pain Respiratory Oxygen Delivery Method Room Air Oxygen Delivery Method Room Air Oxygen Delivery Method Room Air Cardiology Heart Sounds Regular Bowels Date of Last Bowel Movement 10/10/23 Renal Bladder Pattern Continent Bladder Pattern Continent
[2023-10-11 08:23] VITALS: BP 106/66; PULSE 69
[2023-10-11 08:26] VITALS: RESP 14; TEMP 36.7
[2023-10-11] MEDS: DOCUSATE SODIUM 100 MG CAPSULE PO (08:46)
[2023-10-11] MEDS: GLYCERIN/WITCH HAZEL PADS 1 PAD TOPICAL (08:46)
--- NOTE | 2023-10-11 08:56 | P.DS_ITS ---
DS: Providers Provider Date of admission: 10/08/23 17:03 Primary care physician: Non-Staff PhysicianMD Admitting clinician: Isael Loredo Attending physician on admission: Isael Loredo Consults: 10/09/23 Consult to Systems Protection Technician Routine Reason for consult:: Drug Abuse Other reason:: + THC on Sunday. - on admission. cord being sent. pt admits to 2 [facility] . Attending physician on discharge: PHILLIP MATIAS Discharging clinician: PHILLIP MATIAS DS: Diagnosis Discharge Diagnosis (1) Vaginal delivery: Plan OB - DS: Summary Peripartum Data - Vaginal Delivery Laceration description: periurethral - 1st degree Complications complications: other (e-coli in urine culture ) Delivery method: spontaneous vaginal delivery Gender: female Discharge plan: home Status at Discharge Functional status at discharge: independent ambulation Overall status at discharge: patient is progressing back to baseline Time Spent with Patient Time attestation: Total time spent providing and/or coordinating discharge services: Time spent: less than 30 minutes Exam Constitutional Vital Signs, click to edit/add: Last Vital Signs Temp 98.1 F 10/11/23 08:26 Pulse 69 10/11/23 08:23 Resp 14 10/11/23 08:26 BP 106/66 10/11/23 08:23 O2 Del Method Room Air 10/11/23 08:26 Common normals: no apparent distress, average body habitus and oriented x3 HENMT Common normals: normocephalic Eye Common normals: EOMs intact bilaterally Neck & C-Spine Common normals: full ROM and no lymphadenopathy Lymph Lymphatic: no lymphadenopathy noted Chest Common normals: inspection of chest normal Respiratory Common normals: normal respiratory effort Effort & inspection: able to speak in complete sentences Auscultation: clear to auscultation bilaterally Cardio Common normals: regular rate and regular rhythm Rate: regular rate Rhythm: regular rhythm GI Common normals: Normal to inspection, nondistended, normoactive bowel sounds present Common normals: no CVA tenderness Extremity Common normals: full ROM Neuro Common normals: oriented x3 Sensorium/orientation: awake, alert, oriented to person, oriented to place and oriented to time Psych Common normals: mental status grossly normal Attitude: calm Discharge Plan Discharge Disposition: Home, Self-Care Discharge Medications: New Dermoplast (with menthol) 20-0.5 % Aerosol 1 spray topical Q2H 14 Days Qty: 56 1RF docusate sodium 100 mg Capsule 100 mg PO BID 30 Days Qty: 60 3RF A.E.R. Witch Elli 12.5-50 % Pads, Medicated 1 pad topical Q2H PRN (Reason: Pain) Qty: 40 1RF ibuprofen 800 mg tablet 800 mg PO Q8H PRN (Reason: Moderate Pain) 14 Days Qty: 50 1RF nitrofurantoin monohyd/m-cryst [Macrobid] 100 mg capsule 100 mg PO BID 5 Days Qty: 10 0RF Rx Instructions: must administer with a meal/food ferrous sulfate 325 mg (65 mg iron) tablet,delayed release (DR/EC) 325 mg PO BID 30 Days Qty: 60 3RF Continued [id number] 1 mg tablet PO DAILY Forms: Vaginal Delivery - Discharge, Portal Instructions
--- NOTE | 2023-10-23 15:20 | CM.NOTE ---
Called cord results to [facility].
== END 2023-10-11 12:00 | disposition home or self-care (01) | DRG 560 ==
PROVIDERS: Admitting Provider Obstetrics & Gynecology; Visit Provider Obstetrics & Gynecology
DX: O69.81X0 Labor and delivery complicated by cord around neck, without compression, not applicable or unspecified (principal); O99.324 Drug use complicating childbirth; F12.10 Cannabis abuse, uncomplicated; O71.82 Other specified trauma to perineum and vulva; Z3A.38 38 weeks gestation of pregnancy; Z37.0 Single live birth
CPT/HCPCS: 36415; 59025; 59050; 59410; 80307; 80349; 81001; 85025; 86850; 86900; 86901; 87086; 87150; 87186; 96374; G0378; G0379

== ENCOUNTER 2024-09-11 12:35 | Outpatient (OUT) | payer OTHER, SELFPAY ==
--- NOTE | 2024-09-11 12:37 | US_ITS ---
[address] [address] Patient Name: MACIEJ BARAHONA MRN: [id number] date: 2005 Sex: F Assigned Patient Location: [facility] Current Patient Location: Accession/Order Number: [id number] Exam Date: 09/11/2024 12:37 Report Date: 09/12/2024 05:06 At the request of: DAGMAR PERLA Procedure: US OB transvaginal EXAMINATION: US OB transvaginal HISTORY: MISSED MENSES COMPARISON: No relevant comparison available. FINDINGS: GESTATIONAL SAC: Present and normal appearing. YOLK SAC: Present and normal appearing. POLE: Present and normal appearing. CARDIAC: Present. UTERUS: Tiny subchorionic hematoma. OVARIES: Right: Normal. Left: Corpus lutein cyst. CERVIX: 3.6 cm in length and closed. CUL-DE-SAC: Normal. OTHER: None. AGE BY LMP: 10 weeks 0 days KIYA BY LMP: 04/09/2025 AGE BY US CRL: 9 weeks 1 day KIYA BY US CRL: 04/15/2025 US/US OB transvaginal IMPRESSION: 1. Single live intrauterine . Electronically authenticated by: SIENNA POWERS Date: 09/12/2024 05:06
--- OUTSIDE RECORDS SUMMARY | 2024-09-11 12:38 | XMS_ITS | CCD ---
Author Organization [facility] Care Team Providers Care Activities Leader Name Role Phone JULY ASENCIO Unavailable Unavailable STEPHANIE LIN Attending Unavailable STEPHANIE LIN Consulting Unavailable STEPHANIE LIN Admitting Unavailable REQUEST, NONE LISTED Primary Care UnavailCARMEN Odell Consulting Unavailable DAGMAR PERLA Attending Unavailable DELIA, PERCY Attending Unavailable DELIA, PERCY Attending Unavailable DAGMAR PERLA Attending Unavailable DELIA, PERCY Attending Unavailable DELIA, PERCY Attending Unavailable RACHELLE COLLAZO Attending Unavailable NO PCP, NO PCP Primary Care Unavailable Problems Problem Classification Problem Date Documented Da te Episodic/Chronic Abdominal pain (1 source) Unspecified abdominal pain; Translations: [Unspecified abdominal pain] Onset: 06-16-2018 Episodic Disorders of teeth and jaw (2 sources) Periapical abscess without sinus; Translations: [Toothache] Onset: 04-14-2024 Episodic Genitourinary symptoms and ill-defined conditions (3 sources) Hematuria, unspecified; Translations: [HEMATURIA UNSPECIFIED] Onset: 03-15-2023 Episodic Other complications of (1 source) Unspecified infection of urinary tract in , first trimester; Translations: [UNS INF URINARY TRACT PREG 1ST TRI] Onset: 03-19-2023 Episodic Other complications of (1 source) Smoking (tobacco) complicating , first trimester; Translations: [SMOKING TOBACCO COMP PREG 1ST TRI] Onset: 03-19-2023 Episodic Other skin disorders (1 source) Facial swelling Onset: 04-14-2024 Episodic Residual codes; unclassified (1 source) 9 weeks gestation of ; Translations: [9 WEEKS GESTATION OF ] Onset: 03-19-2023 Episodic Substance-related disorders (1 source) Nicotine dependence, cigarettes, uncomplicated; Translations: [NICOTINE DEPEND CIGARETTES UNCOMP] Onset: 03-19-2023 Chronic Urinary tract infections (1 source) Urinary tract infection, site not specified; Translations: [UTI SITE NOT SPECIFIED] Onset: 03-19-2023 Episodic Results Test Name Value Interpretation Reference Range Facility ABO AND RH TYPEon 03-15-2023 ABO and Rh group Nom (Bld) ABO Rh Typing O Rh Positive Normal [facility] Comment on above: Performed By: #### ABORH #### [facility] [address] [place] [address] Dr. Alejandro Schuler CBC AUTO DIFFon 03-15-2023 BASO # 0.0 103/ul Normal 0.0-0.1 [facility] Comment on above: Performed By: #### CBC #### [facility] [address] [place] [address] Dr. Alejandro Schuler Basophils/100 WBC (Bld) 0.3 % Normal 0.2-2.0 [facility] Comment on above: Performed By: #### CBC #### [facility] [address] [place] [address] Dr. Alejandro Schuler EO # 0.1 103/ul Normal 0.0-0.7 [facility] Comment on above: Performed By: #### CBC #### [facility] [address] [place] [address] Dr. Alejandro Schuler Eosinophils/100 WBC (Bld) 0.7 % Critically low 0.9-7.0 [facility] Comment on above: Performed By: #### CBC #### [facility] [address] [place] [address] Dr. Alejandro Schuler Erythrocyte distribution width (RBC) [Ratio] 12.8 % Normal 11.0-15.0 [facility] Comment on above: Performed By: #### CBC #### [facility] [address] [place] [address] Dr. Alejandro Schuler Hematocrit (Bld) [Volume fraction] 37.0 % Normal 36.0-48.0 [facility] Comment on above: Performed By: #### CBC #### [facility] [address] [place] [address] Dr. Alejandro Schuler Hemoglobin (Bld) [Mass/Vol] 13.1 g/dL Normal 12.0-16.0 [facility] Comment on above: Performed By: #### CBC #### [facility] [address] [place] [address] Dr. Alejandro Schuler IG # 0.06 10e3/ul Critically high 0.00-0.03 [facility] Comment on above: Performed By: #### CBC #### [facility] [address] [place] [address] Dr. Alejandro Schuler IG % 0.7 % Critically high 0.0-0.5 [facility] Comment on above: Performed By: #### CBC #### [facility] [address] [place] [address] Dr. Alejandro Schuler LYMPH # 1.7 103/ul Normal 1.2-3.8 [facility] Comment on above: Performed By: #### CBC #### [facility] [address] [place] [address] Dr. Alejandro Schuler Lymphocytes/100 WBC (Bld) 20.1 % Critically low 20.5-60.0 [facility] Comment on above: Performed By: #### CBC #### [facility] [address] [place] [address] Dr. Alejandro Schuler MANUAL DIFF REQ NO Normal [facility] Comment on above: Performed By: #### CBC #### [facility] [address] [place] [address] Dr. Alejandro Schuler MCH (RBC) [Entitic mass] 28.5 pg Normal 26.7-34.0 [facility] Comment on above: Performed By: #### CBC #### [facility] [address] [place] [address] Dr. Alejandro Schuler MCHC (RBC) [Mass/Vol] 35.4 g/dL Critically high 29.9-35.2 [facility] Comment on above: Performed By: #### CBC #### [facility] [address] [place] [address] Dr. Alejandro Schuler MCV (RBC) [Entitic vol] 80.6 fL Critically low 81.0-99.0 [facility] Comment on above: Performed By: #### CBC #### [facility] [address] [address] [address] Alejandro Schuler MONO # 0.7 103/ul Normal 0.3-0.8 [facility] Comment on above: Performed By: #### CBC #### [facility] [address] [place] [address] Dr. Alejandro Schuler Monocytes/100 WBC (Bld) 7.8 % Normal 1.7-12.0 [facility] Comment on above: Performed By: #### CBC #### [facility] [address] [place] [address] Dr. Alejandro Schuler NEUT # 6.1 103/ul Normal 1.4-6.5 [facility] Comment on above: Performed By: #### CBC #### [facility] [address] [place] [address] Dr. Alejandro Schuler Neutrophils/100 WBC (Bld) 70.4 % Normal 43.0-75.0 [facility] Comment on above: Performed By: #### CBC #### [facility] [address] [place] [address] Dr. Alejandro Schuler Platelet mean volume (Bld) [Entitic vol] 8.8 fL Critically low 9.5-13.5 [facility] Comment on above: Performed By: #### CBC #### [facility] [address] [place] [address] Dr. Alejandro Schuler PLT 245 103/ul Normal 150-450 [facility] Comment on above: Performed By: #### CBC #### [facility] [address] [place] [address] Dr. Alejandro Schuler RBC 4.59 106/ul Normal 4.20-5.40 [facility] Comment on above: Performed By: #### CBC #### [facility] [address] [place] [address] Dr. Alejandro Schuler WBC 8.7 103/ul Normal 4.0-11.0 [facility] Comment on above: Performed By: #### CBC #### [facility] [address] [place] [address] Dr. Alejandro Schuler CULTURE URINEon 03-15-2023 CULTURE URINE Culture Observations : LIGHT GROWTH OF MIXED GENITAL MAK. NO POTENTIAL PATHOGENS SEEN. Normal [facility] Comment on above: Performed By: #### URCX #### [facility] [address] [address] [address] Alejandro Schuler ER URINE PROFILEon 3 Bilirubin Ql (U) Negative Normal NEGATIVE [facility] Comment on above: Performed By: #### UMICRO ERUR, PREGU # ### [facility] [address] [address] [address] Alejandro Schuler Clarity (U) CLEAR Normal CLEAR [facility] Comment on above: Performed By: #### JAYCEICPERRY SAWANTR, PREGU # ### [facility] [address] [address] [address] Alejandro Schuler Color (U) YELLOW Normal YELLOW [facility] Comment on above: Performed By: #### UMICPERRY SAWANTR, PREGU # ### [facility] [address] [address] [address] Alejandro Schuler ERULIBIAD A micrscopic examina tion will be performed if indicated. Normal [facility] Comment on above: Performed By: #### UMICPERRY SAWANTR, PREGU # ### [facility] [address] [address] [address] Alejandro Schuler Glucose Ql (U) Negative Normal NEGATIVE [facility] Comment on above: Performed By: #### UMICPERRY SAWANTR, PREGU # ### [facility] [address] [address] [address] Alejandro Schuler Hemoglobin Ql (U) LARGE Abnormal NEGATIVE [facility] Comment on above: Performed By: #### UMICROPERRYR, PREGU # ### [facility] [address] [address] [address] Alejandro Schuler Ketones Ql (U) >=80 Abnormal NEGATIVE [facility] Comment on above: Performed By: #### PERRY MATOSR, PREGU # ### [facility] [address] [address] [address] Alejandro Schuler LEUKOCYTES TRACE Abnormal NEGATIVE [facility] Comment on above: Performed By: #### UMICROPERRYR, PREGU # ### [facility] [address] [address] [address] Alejandro Schuler Nitrite Ql (U) Negative Normal NEGATIVE [facility] Comment on above: Performed By: #### UMICROPERRYR, PREGU # ### [facility] [address] [address] [address] Alejandro Schuler pH (U) 6.0 [pH] Normal 5-9 [facility] Comment on above: Performed By: #### UMICPERRY SAWANTR, PREGU # ### [facility] [address] [address] [address] Alejandro Schuler SPEC GRAVITY >=1.030 Abnormal 1.005-<=1.02 5 [facility] Comment on above: Performed By: #### UMPERRY MONTEROR, PREGU # ### [facility] [address] [address] [address] Alejandro Schuler UA PROTEIN TRACE Normal NEGATIVE/ TRACE [facility] Comment on above: Performed By: #### PERRY MATOSR, PREGU # ### [facility] [address] [address] [address] Alejandro Schuler UR MICRO IND INDICATED Normal [facility] Comment on above: Performed By: #### PERRY MATOSR, PREGU # ### [facility] [address] [address] [address] Alejandro Schuler Urobilinogen Qn (U) 1.0 {Nannette'U}/dL Normal 0.2 - 1.0 [facility] Comment on above: Performed By: #### UMPERRY MONTEROR, PREGU # ### [facility] [address] [address] [address] Alejandro Schuler PREG QUANT HCGon 03-15-2023 HCG QUANT [id number] mIU/mL Normal [facility] Comment on above: Performed By: #### PREGQNT #### [facility] [address] [place] [address] Dr. Alejandro Schuler HCG RANGE SEE BELOW Normal [facility] Comment on above: Result Comment: 5-50 0.2-1 WEEK 50-500 1 -2 WEEKS 100-5,000 2-3 WEEKS 500-10,000 3-4 WEEKS 1,000-50,000 4-5 WEEKS 10,000-100,000 5-6 WEEKS 15,000-200,000 6-8 WEEKS 10,000-100,000 2-3 MONTHS Performed By: #### P REGQNT #### [facility] [address] [address] [address] Alejandro Schuler URon 03-15-2023 , QUAL Positive Abnormal NEGATIVE [facility] Comment on above: Performed By: #### UMICRO, ERUR, PREGU # ### [facility] [address] [address] [address] Alejandro Schuler PROF CHEM 8 (BAS METB)on Anion gap [Moles/Vol] 14.7 mmol/L Normal [facility] Comment on above: Performed By: #### BMP #### [facility] [address] [address] [address] Alejandro Schuler Calcium [Mass/Vol] 9.1 mg/dL Normal 8.5-10.1 [facility] Comment on above: Performed By: #### BMP #### [facility] [address] [address] [address] Alejandro Schuler Chloride [Moles/Vol] 101 mmol/L Normal 98-107 [facility] Comment on above: Performed By: #### BMP #### [facility] [address] [address] [address] Alejandro Schuler CO2 [Moles/Vol] 23.8 mmol/L Normal 21.0-32.0 [facility] Comment on above: Performed By: #### BMP #### [facility] [address] [address] [address] Alejandro Schuler Creatinine [Mass/Vol] 0.56 mg/dL Normal 0.55-1.02 [facility] Comment on above: Performed By: #### BMP #### [facility] [address] [address] [address] Alejandro Schuler EGFR-AF AFGHAN >60 Normal >=60 [facility] Comment on above: Performed By: #### BMP #### [facility] [address] [place] [address] Dr. Alejandro Schuler EGFR-NON AF AFGHAN >60 Normal >=60 [facility] Comment on above: Performed By: #### BMP #### [facility] [address] [address] [address] Alejandro Schuler Glucose [Mass/Vol] 78 mg/dL Normal 74-106 [facility] Comment on above: Performed By: #### BMP #### [facility] [address] [address] [address] Alejandro Schuler Potassium [Moles/Vol] 3.5 mmol/L Normal 3.5-5.1 [facility] Comment on above: Performed By: #### BMP #### [facility] [address] [address] [address] Alejandro Schuler Sodium [Moles/Vol] 136 mmol/L Normal 136-145 [facility] Comment on above: Performed By: #### BMP #### [facility] [address] [address] [address] Alejandro Schuler Urea nitrogen [Mass/Vol] 8.0 mg/dL Normal 6.4-19.3 [facility] Comment on above: Performed By: #### BMP #### [facility] [address] [place] [address] Dr. Alejandro Schuler Urea nitrogen/Creatin ine [Mass ratio] 14.3 mg/mg Normal [facility] Comment on above: Performed By: #### BMP #### [facility] [address] [address] [address] Alejandro Schuler URINE MICROSCOPIC ONLYon BACTERIA SMALL Abnormal NONE SEEN [facility] Comment on above: Performed By: #### UMICRO, ERUR, PREGU # ### [facility] [address] [address] [address] Alejandro Schuler Bacteria identified Cx Nom (U) INDICATED Normal [facility] Comment on above: Performed By: #### UMICRO, ERUR, PREGU # ### [facility] [address] [address] [address] Alejandro Schuler CAST NONE SEEN Normal NONE SEEN [facility] Comment on above: Performed By: #### UMICRO, ERUR, PREGU # ### [facility] [address] [address] [address] Alejandro Schuler Crystals LM Nom (Urine sed) NONE SEEN Normal NONE SEEN [facility] Comment on above: Performed By: #### UMICRO, ERUR, PREGU # ### [facility] [address] [address] [address] Alejandro Schuler Epithelial cells LM Ql (Urine sed) FEW Abnormal NONE SEEN /RARE [facility] Comment on above: Performed By: #### UMICRO, ERUR, PREGU # ### [facility] [address] [address] [address] Alejandro Schuler MUCOUS TRACE Abnormal NONE SEEN [facility] Comment on above: Performed By: #### UMICRO, ERUR, PREGU # ### [facility] [address] [address] [address] Alejandro Schuler RBC 20-50 Abnormal 0-2 [facility] Comment on above: Performed By: #### UMICRO, ERUR, PREGU # ### [facility] [address] [address] [address] Alejandro Schuler WBC 5-10 Abnormal NONE SEEN [facility] Comment on above: Performed By: #### UMICRO, ERUR, PREGU # ### [facility] [address] [address] [address] Alejandro Schuler US PREG TVon 03-15-2023 US PREG TV EXAM: US PREG TV HISTORY: Pain COMPARISON: None. TECHNIQUE: Ultrasound obstetrical first trimester. FINDINGS: Single living intrauterine gestation with cardiac rate of 179 bpm. Yolk sac is present. [place]-rump length measurement of 2.23 cm yielding estimated gestational age of 9 weeks and 0 days. The cervix is closed. Cervical length measures 3.8 cm. The right ovary is not identified. The left ovary measures 3.1 x 1.8 x 1.7 cm. Normal appearance of the left ovary. No free fluid within the pelvis. IMPRESSION: 1. Single living intrauterine gestation with estimated gestational age of 9 weeks and 0 days based on crown-rump length measurement, KIYA 10/18/2023. 2. Normal appearance of the left ovary. The right ovary is not identified. No adnexal masses. Electronically authenticated by: CARMEN AGUIRRE Date: 2023-03-15 18:03 Normal [facility] Urine Cultureon 06-18-2018 Bacteria identified Cx Nom (U) Urine CultureUrine Culture [id number] URINE-MIDSTREAM CLEAN CATCHURINE-MIDSTREAM CLEAN CATCH No significant growthNo significant growth 06/18/2018 FINAL 06/18/2018 FINAL Normal [facility] Comment on above: Performed By: #### URCUL ####[facility] [id number] [place], [place] [phone] ED NOTEon 06-17-2018 ED NOTE HNO ID: [id number] Author: Janett Toledo RN Service: (none) Author Type: Registered Nurse Type: ED Notes Filed: 06/16/2018 10:46 PM Note Text: Patient tolerated po fluids- pain 12/29- discharge instructions given- father verbalized understanding Normal [facility] ED PROV NOTEon 06-17-2018 Protein mass conc HNO ID: [id number]: RORY Schulteervice: Emergency MedicineAuthor Type: PhysicianType: ED Provider NotesFiled: 06/17/2018 5:11 AMNote Text:ED Provider NotePatient Name: Maciej BusbyRN: [id number] DATE: 06/16/18HistoryPatient presents with:Abdominal Pain: L sideHistory provided by: PatientAbdominal PainPain location: LLQPain quality: achingPain radiates to: Does not radiatePain severity: MildOnset quality: SuddenDuration: 1 hourTiming: IntermittentProgression: Partially resolvedChronicity: NewContext: eatingContext: not recent illness, not recent travel, not sick contacts, notsuspicious food intake and not traumaRelieved by: None triedWorsened by: NothingIneffective treatments: None triedAssociated symptoms: nausea and vomitingAssociated symptoms: no anorexia, no chest pain, no chills, noconstipation, no cough, no diarrhea, no dysuria, no fever, no hematemesis,no hematochezia, no hematuria and no shortness of breathRisk factors: has not had multiple surgeries, not and no recenthospitalizationNo past medical history on file.No past surgical history on file.No family history on file.Social HistorySocial History Main Topics- Smoking status: Never Smoker- Smokeless tobacco: Never Used- Alcohol use No- Drug use: No- Sexual activity: Not on fileALLERGIESNo Known AllergiesReview of SystemsConstitutional: Negative for chills, fever and unexpected weight change.Respiratory: Negative for cough, shortness of breath and stridor.Cardiovascular: Negative for chest pain and palpitations.Gastrointestin al: Positive for abdominal pain, nausea and vomiting.Negative for anorexia, constipation, diarrhea, hematemesis andhematochezia.Genitourina ry: Negative for dysuria and hematuria.Musculoskeletal: Negative for back pain and neck stiffness.Skin: Negative for pallor, rash and wound.Allergic/Immunologic: Negative for immunocompromised state.Neurological: Negative for seizures and syncope.Psychiatric/Behavio ral: Negative.All other systems reviewed and are negative.Physical ExamBP 118/70 Pulse 74 Temp (Src) 98.3 (Temporal Artery) Resp 16 Ht 5'2 (1.58m) Wt 129 lb (58.5kg) SpO2 98% LMP 06/11/2018 BMI 23.59kg/(m2).Physical ExamConstitutional: She is oriented to person, place, and time. She appearswell-developed and well-nourished. No distress.HENT:Head: Normocephalic and atraumatic.Eyes: Pupils are equal, round, and reactive to light. Conjunctivae arenormal.Neck: Neck supple.Cardiovascular: Normal rate, regular rhythm, normal heart sounds andintact distal pulses. Exam reveals no gallop and no friction rub.No murmur heard.Pulmonary/Chest: Effort normal and breath sounds normal. No respiratorydistress. She has no wheezes. She has no rales.Abdominal: Soft. Bowel sounds are normal. She exhibits no distension.There is no tenderness.Musculoskeletal: She exhibits no edema.Neurological: She is alert and oriented to person, place, and time.Skin: Skin is warm and dry. No rash noted. No erythema.Psychiatric: She has a normal mood and affect.Nursing note and vitals reviewed.Diagnostic TestingED Labs Ordered and ReviewedUA CHEMSTRIP ONLY - Abnormal; Notable for the following: Result Value Ref Range Hemoglobin/Blood,Ur Moderate (*) Negative All other components within normal limitsHCG QUAL URURINE CULTUREProceduresED Course / Clinical ImpressionClinical Impressions as of Jun 17 0511Abdominal crampingMDM / Disposition / PlanMDMThe patient was DISCHARGED: Counseled patient and family regarding labresults AND suspected diagnosis AND need for follow-up. Discharged home withverbal and written instructions. They were instructed to return as neededfor persistent or worsening symptoms or any new concerns.Condition at time of disposition: stableSIGNATURE: Bruce Steel MD06/17/18 0511 [facility] ED NOTEon 06-16-2018 ED NOTE HNO ID: [id number] thor: Janett Toledo, RNService: (none)Author Type: Registered NurseType: ED NotesFiled: 06/16/2018 9:08 PMNote Text: C/o pain to left side of umbilicus- onset 40 minutes ago- nausea withvomiting every morning for the past 3 days [facility] ED NOTE HNO ID: [id number] thor: Era Rollins, RNService: (none)Author Type: Registered NurseType: ED NotesFiled: 06/16/2018 8:53 PMNote Text: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 Ptdenies any nausea or vomiting. Dad states she has been sick the pastcouple of mornings. Normal [facility] HCG, Urine qualon 06-16-2018 HCG.beta subunit ( test) Ql (U) Negative Normal Negative [facility] Comment on above: Performed By: #### UHCGQL ####[facility] [id number] [place]reaCl[place], [place] [phone] Urinalysison 06-16-2018 Bilirubin Negative Normal Negative [facility] Comment on above: Performed By: #### UA ####[facility] jessie [id number]Saint [facility] Centerr[facility], [place] [phone] Clarity Nom (U) Clear Normal Clear [facility] Comment on above: Performed By: #### UA ####[facility] jessie [id number]Ch[place], [place] [phone] Color Nom (U) Yellow Normal Yellow [facility] Comment on above: Performed By: #### UA ####[facility] jessie [id number]Saint Elizabeth[facility] Medical Centerrdon, [place] [phone] Epithelial Cells Few Normal [facility] Comment on above: Result Comment: Squamous Epithelial Cell sFewTransitional Epithelial Cells Performed By: #### U A ####[facility] [id number]Saint [facility], [place] [phone] Glucose Negative Normal Negative [facility] Comment on above: Performed By: #### UA ####[facility] [id number] [address], [place] [phone] Hemoglobin/Blood Moderate Critically abnormal Negative [facility] Comment on above: Performed By: #### UA ####[facility] [id number] [address], [place] [phone] INR Coag RelTime (Bld) 0-3 Normal 0-3 [facility] Comment on above: Performed By: #### UA ####[facility] [id number] [address], [place] [phone] Ketone Negative Normal Negative [facility] Comment on above: Performed By: #### UA ####[facility] [id number] [address], [place] [phone] Leukest Negative Normal Negative [facility] Comment on above: Performed By: #### UA ####[facility] [id number] [address], [place] [phone] Nitrites Negative Normal Negative [facility] Comment on above: Performed By: #### UA ####[facility] [id number] [facility] [place] [phone] pH Test strip (U) 6.0 [pH] Normal 5-7 [facility] Comment on above: Performed By: #### UA ####[facility] [id number] [address]Saint [facility], [place] [phone] Protein mass conc Negative Normal Negative [facility] Comment on above: Performed By: #### UA ####[facility] [id number] [address], [place] [phone] Urine Pito Comment Moderate Normal [facility] Comment on above: Result Comment: MUCOUS Performed By: #### U A ####[facility] [id number] [address]Ch[place], [place] [phone] Urine Spec [place] 1.011 Normal 1.005-1.030 [facility] Comment on above: Performed By: #### UA ####[facility] [id number] [address]Saint [facility], [place] [phone] Urobilinogen <2.0 Normal 0.0-1.0 [facility] Comment on above: Performed By: #### UA ####[facility] [id number] [address]Saint [facility], [place] [phone] WBC 0-5 Normal 0-5 [facility] Comment on above: Performed By: #### UA ####[facility] [id number] [address]Saint [facility], [place] [phone] Encounters Encounter Date Encounter Type Care Provider Facility Start: 04-14-2024 End: 04-14-2024 Emergency department patient visit RACHELLE Bella [facility] Start: 11-26-2023 End: 11-26-2023 ambulatory PERCY LIN Not Available Start: 10-03-2023 End: 10-03-2023 ambulatory PERCY LIN Not Available Start: 09-26-2023 End: 09-26-2023 ambulatory PERCY LIN Not Available Start: 09-19-2023 End: 09-19-2023 ambulatory DAGMRA PAN Not Available Start: 09-12-2023 End: 09-12-2023 ambulatory PERCY LIN Not Available Start: 09-05-2023 End: 09-05-2023 ambulatory DAGMAR PAN Not Available Start: 03-15-2023 End: 03-15-2023 ambulatory STEPHANIE LIN Facility: Start: 06-16-2018 End: 06-17-2018 Emergency department patient visit JULY ANNE [facility] Payers Date Payer Category Payer Unknown [id number] 2.16.84 [id number] 2003 Unknown [id number] 2.16.84 [id number] 2003 Unknown [id number] 2003 Unknown [id number] 2.16.840 .[id number] 2003 Unknown [id number] 2.16.840 .[id number] 2003 Unknown [id number] 2.16.840 .[id number] 2003 Unknown [id number] 2.16.840. [id number] 2003 Unknown [id number] 2.16.8 [id number] 1959 Unknown [id number] Summary Purpose Family History No Family History Records FoundNo Family History Records FoundNo Family History Records FoundNo Family History Records Found Advance Directives No Advanced Directives Records FoundNo Advanced Directives Records FoundNo Advanced Directives Records FoundNo Advanced Directives Records Found Additional Source Comments INFORMATION SOURCE (unrecogn ized section and content) DATE CREATED AUTHOR 06/21/2018 [facility] DATE CREATED AUTHOR AUTHOR'S ORGANIZ ATION 03/30/2023 [facility] DATE CREATED AUTHOR AUTHOR'S ORGANIZ ATION 11/27/2023 [facility] DATE CREATED AUTHOR AUTHOR'S ORGANAMOL ATION 04/14/2024 [facility] FOR RECORDS PERTAINING TO PATIENTS WHO ARE OR HAVE BEEN ENROLLED IN A CHEMICAL DEPENDENCY/SUBSTANCEABUSE PROGRAM, SOME INFORMATION MAY BE OMITTED. This clinical summary was aggregated from multiple sources. Caution should be exercised in using it in the provision of clinical care. This summary normalizes information from multiple sources, and as a consequence, information in this document may materially change the coding, format and clinical context of patient data. In addition, data may be omitted in some cases. CLINICAL DECISIONS SHOULD BE BASED ON THE PRIMARY CLINICAL RECORDS. [employer] provides no warranty or guarantee of the accuracy or completeness of information in this document.
== END 2024-09-11 12:36 | disposition home or self-care (01) ==
LOC: NOMS 12:36
PROVIDERS: Visit Provider Obstetrics & Gynecology
DX: Z34.91 Encounter for supervision of normal pregnancy, unspecified, first trimester (principal); Z3A.10 10 weeks gestation of pregnancy; N92.6 Irregular menstruation, unspecified
CPT/HCPCS: 76817

== ENCOUNTER 2024-10-06 16:00 | Outpatient (OUT) | payer OTHER, SELFPAY ==
[2024-10-06 16:56] LABS: BOX Test Reference Lab UNITY; BOX Test Sent Out UNITY
[2024-10-06 16:58] LABS: Basophils Percent Auto 0.4 % (0.2-2.0); Eosinophils Absolute Auto 0.1 10^3/uL (0.0-0.7); Eosinophils Percent Auto 1.2 % (0.9-7.0); Hemoglobin 13.3 g/dL (12.0-16.0); Immature Granulocytes Abs Auto 0.04 10^3/uL (0.00-0.03); Immature Granulocytes Pct Auto 0.5 % (0.0-0.5); Lymphocytes Absolute Auto 1.4 10^3/uL (1.2-3.8); Mean Corpuscular HGB Conc 33.3 g/dL (29.9-35.2); Mean Corpuscular Hemoglobin 26.5 pg (26.7-34.0); Mean Corpuscular Volume 79.7 fL (81.0-99.0); Mean Platelet Volume 9.6 fL (9.5-13.5); Monocytes Absolute Auto 0.5 10^3/uL (0.3-0.8); Monocytes Percent Auto 6.6 % (1.7-12.0); Neutrophils Absolute Auto 5.4 10^3/uL (1.4-6.5); Neutrophils Percent Auto 72.3 % (43.0-75.0); Platelet Count 224 10^3/uL (150-450); Red Blood Count 5.02 10^6/uL (4.20-5.40); Red Cell Distribution Width 14.6 % (11.0-15.0); White Blood Count 7.5 10^3/uL (4.0-11.0)
[2024-10-06 17:35] LABS: Amphetamine Screen Urine NEGATIVE (NEGATIVE); Barbiturates Screen Urine NEGATIVE (NEGATIVE); Benzodiazepines Screen Urine NEGATIVE (NEGATIVE); Buprenorphine Screen Urine NEGATIVE (NEGATIVE); Cannabinoid Screen Urine NEGATIVE (NEGATIVE); Cocaine Screen Urine NEGATIVE (NEGATIVE); Methadone Screen Urine NEGATIVE (NEGATIVE); Methamphetamines Screen Urine NEGATIVE (NEGATIVE); Opiate Screen Urine NEGATIVE (NEGATIVE); Oxycodone Screen Urine NEGATIVE (NEGATIVE); Phencyclidine Screen Urine NEGATIVE (NEGATIVE); Tricyclic Antidepressant Urine NEGATIVE (NEGATIVE)
[2024-10-06 17:43] LABS: Estimated Average Glucose 100 mg/dL; Glycohemoglobin A1C 5.1 % (4.5-6.2)
[2024-10-08 08:10] LABS: HBsAg Screen Negative (Negative); HCV Ab Non Reactive (Non Reactive)
[2024-10-08 09:09] LABS: Rubella Antibodies, IgG <0.90 index (Immune >0.99)
[2024-10-08 11:08] LABS: HIV Ab/p24 Ag Screen Non Reactive (Non Reactive)
[2024-10-08 14:08] LABS: Rapid Plasma Reagin, Quant Non Reactive titer (NonRea<1:1)
== END 2024-10-06 16:01 | disposition home or self-care (01) ==
LOC: LAB 16:05
PROVIDERS: Visit Provider Obstetrics & Gynecology
DX: Z34.01 Encounter for supervision of normal first pregnancy, first trimester (principal); Z36.0 Encounter for antenatal screening for chromosomal anomalies; N92.6 Irregular menstruation, unspecified
CPT/HCPCS: 36415; 80307; 83036; 85025; 86592; 86762; 86803; 86850; 86900; 86901; 87086; 87340; 87389

== ENCOUNTER 2024-11-13 18:55 | Outpatient (REF) | payer OTHER, SELFPAY ==
--- OUTSIDE RECORDS SUMMARY | 2024-11-13 18:59 | XMS_ITS | CCD ---
Author Organization [facility] Care Team Providers Care Core Microarchitect Name Role Phone JULY ASENCIO Unavailable Unavailable STEPHANIE LIN Attending Unavailable STEPHANIE LIN Consulting Unavailable STEPHANIE LIN Admitting Unavailable REQUEST, NONE LISTED Primary Care UnavailCARMEN Odell Consulting Unavailable RACHELLE COLLAZO Attending Unavailable NO PCP, NO PCP Primary Care Unavailable Natty Sterling Unavailable NATTY LIN Attending Unavailable DAGMAR LOREDO Attending Unavailable Medications Current Medications Medication Drug Class(es) Dates Sig (Normalized) Sig (Original) metoclopramide 10 mg oral tablet (3 sources) Dopamine-2 Receptor Antagonist Start: 10-06-2024 End: 11-05-2024 metoclopramide (Reglan) 10 MG tablet Indications: Nausea and vomiting in Take 1 tablet (10 mg) by mouth in the morning and 1 tablet (10 mg) at noon and 1 tablet (10 mg) in the evening. Take before meals. Take 1 tablet by mouth 30 minutes prior to meals 3 times daily as needed for nausea.. 90 tablet 10/06/2024 11/05/2024 Active norethindrone 0.35 mg oral tablet (1 source) Start: 11-26-2023 End: 09-11-2024 take 1 tablet by mouth in the morning, then take 1 tablet by mouth once daily norethindrone (Micronor) 0.35 MG tablet Indications: Uses control Take 1 tablet (0.35 mg) by mouth in the morning. Take 1 tablet by mouth daily. 360 tablet 11/26/2023 09/11/2024 Discontinued (Other) Problems Problem Classification Problem Date Documented Da te Episodic/Chronic Abdominal pain (1 source) Unspecified abdominal pain; Translations: [Unspecified abdominal pain] Onset: 06-16-2018 Episodic Disorders of teeth and jaw (2 sources) Periapical abscess without sinus; Translations: [Toothache] Onset: 04-14-2024 Episodic Genitourinary symptoms and ill-defined conditions (3 sources) Hematuria, unspecified; Translations: [HEMATURIA UNSPECIFIED] Onset: 03-15-2023 Episodic Menstrual disorders (1 source) Missed period; Translations: [Irregular menstruation, unspecified] 09-11-2024 Chronic Other complications of (1 source) Unspecified infection of urinary tract in , first trimester; Translations: [UNS INF URINARY TRACT PREG 1ST TRI] Onset: 03-19-2023 Episodic Other complications of (1 source) Smoking (tobacco) complicating , first trimester; Translations: [SMOKING TOBACCO COMP PREG 1ST TRI] Onset: 03-19-2023 Episodic Other complications of (2 sources) Vomiting of , unspecified; Translations: [Unspecified vomiting of , unspecified as to episode of care or not applicable] 10-06-2024 Episodic Other and delivery including normal (4 sources) ; Translations: [Encounter for supervision of normal , unspecified, unspecified trimester] 09-11-2024 Episodic Other skin disorders (1 source) Facial swelling Onset: 04-14-2024 Episodic Residual codes; unclassified (1 source) 9 weeks gestation of ; Translations: [9 WEEKS GESTATION OF ] Onset: 03-19-2023 Episodic Residual codes; unclassified (2 sources) Gestation period, 12 weeks; Translations: [12 weeks gestation of ] 10-06-2024 Episodic Substance-related disorders (1 source) Nicotine dependence, cigarettes, uncomplicated; Translations: [NICOTINE DEPEND CIGARETTES UNCOMP] Onset: 03-19-2023 Chronic Urinary tract infections (1 source) Urinary tract infection, site not specified; Translations: [UTI SITE NOT SPECIFIED] Onset: 03-19-2023 Episodic Results Test Name Value Interpretation Reference Range Facility BOX TESTon 10-06-2024 BOX TEST SENT OUT [facility] BOX1 [facility] BOX2 10/06/2024 [facility] Urinalysis macro (dipstick) panel (U)on 10-06-2024 Bilirubin, UA Positive Negative - 4(70) +++ mg/dL [facility] Comment on above: small Blood, UA Negative Negative - 50 Rupert/mcL [facility] Clarity, UA Clear [facility] Color, UA Carole [facility] Glucose, UA Negative Negative - 1999(110) ++++ mg/dL [facility] Interpretation and review of laboratory results Abnormal [facility] Ketones, UA Positive Negative - 160(16) ++++ mg/dL [facility] Comment on above: 40 Leukocytes, UA Trace Negative - 500+++ Emily/mcL [facility] Nitrite, UA Negative Negative - Positive [facility] pH, UA 7 5 - 9 [facility] Protein, UA Positive Negative - 1999(20) ++++ mg/dL [facility] Comment on above: 30 mg Spec Grav, UA 1.025 1 - 1.03 [facility] Urobilinogen, UA 1.0 0.2 - 12 mg/dL [facility] HCG ( test) Ql (U)o n 09-11-2024 Interpretation and review of laboratory results Abnormal [facility] Preg Test, Ur Positive Negative [facility] Urinalysis macro (dipstick) panel (U)on 09-11-2024 Bilirubin, UA Negative Negative - 4(70) +++ mg/dL [facility] Blood, UA Negative Negative - 50 Rupert/mcL [facility] Clarity, UA Clear [facility] Color, UA Yellow [facility] Glucose, UA Negative Negative - 1999(110) ++++ mg/dL [facility] Interpretation and review of laboratory results Abnormal [facility] Ketones, UA Negative Negative - 160(16) ++++ mg/dL [facility] Leukocytes, UA Negative Negative - 500+++ Emily/mcL [facility] Nitrite, UA Negative Negative - Positive [facility] pH, UA 5.5 5 - 9 [facility] Protein, UA Negative Negative - 1999(20) ++++ mg/dL [facility] Spec Grav, UA 1.02 1 - 1.03 [facility] Urobilinogen, UA 1.0 0.2 - 12 mg/dL [facility] ABO AND RH TYPEon 03-15-2023 ABO and Rh group Nom (Bld) ABO Rh Typing O Rh Positive Normal [facility] Comment on above: Performed By: #### A NIC #### [facility] [address] [place] [address] Dr. Alejandro Schuler CBC AUTO DIFFon 03-15-2023 BASO # 0.0 103/ul Normal 0.0-0.1 [facility] Comment on above: Performed By: #### C BC #### [facility] [address] [place] [address] Dr. Alejandro Schuler Basophils/100 WBC (Bld) 0.3 % Normal 0.2-2.0 [facility] Comment on above: Performed By: #### C BC #### [facility] [address] [place] [address] Dr. Alejandro Schuler EO # 0.1 103/ul Normal 0.0-0.7 [facility] Comment on above: Performed By: #### C BC #### [facility] [address] [place] [address] Dr. Alejandro Schuler Eosinophils/100 WBC (Bld) 0.7 % Critically low 0.9-7.0 [facility] Comment on above: Performed By: #### C BC #### [facility] [address] [place] [address] Dr. Alejandro Schuler Erythrocyte distribution width (RBC) [Ratio] 12.8 % Normal 11.0-15.0 [facility] Comment on above: Performed By: #### C BC #### [facility] [address] [place] [address] Dr. Alejandro Schuler Hematocrit (Bld) [Volume fraction] 37.0 % Normal 36.0-48.0 [facility] Comment on above: Performed By: #### C BC #### [facility] [address] [place] [address] Dr. Alejandro Schuler Hemoglobin (Bld) [Mass/Vol] 13.1 g/dL Normal 12.0-16.[address] [facility] Comment on above: Performed By: #### C BC #### [facility] [address] [place] [address] Dr. Alejandro Schuler IG # 0.06 10e3/ul Critically high 0.00-0.03 [facility] Comment on above: Performed By: #### C BC #### [facility] [address] [place] [address] Dr. Alejandro Schuler IG % 0.7 % Critically high 0.0-0.5 [facility] Comment on above: Performed By: #### C BC #### [facility] [address] [place] [address] Dr. Alejandro Schuler LYMPH # 1.7 103/ul Normal 1.2-3.[address] [facility] Comment on above: Performed By: #### C BC #### [facility] [address] [place] [address] Dr. Alejandro Schuler Lymphocytes/100 WBC (Bld) 20.1 % Critically low 20.5-60.[address] [facility] Comment on above: Performed By: #### C BC #### [facility] [address] [place] [address] Dr. Alejandro Schuler MANUAL DIFF REQ NO Normal [facility] Comment on above: Performed By: #### C BC #### [facility] [address] [place] [address] Dr. Alejandro Schuler MCH (RBC) [Entitic mass] 28.5 pg Normal 26.7-34.0 [facility] Comment on above: Performed By: #### C BC #### [facility] [address] [place] [address] Dr. Alejandro Schuler MCHC (RBC) [Mass/Vol] 35.4 g/dL Critically high 29.9-35.[address] [facility] Comment on above: Performed By: #### C BC #### [facility] [address] [place] [address] Dr. Aleajndro Schuler MCV (RBC) [Entitic vol] 80.6 fL Critically low 81.0-99.[address] [facility] Comment on above: Performed By: #### C BC #### [facility] [address] [place] [address] Dr. Alejandro Schuler MONO # 0.7 103/ul Normal 0.3-0.[address] [facility] Comment on above: Performed By: #### C BC #### [facility] [address] [place] [address] Dr. Alejandro Schuler Monocytes/100 WBC (Bld) 7.8 % Normal 1.7-12.0 [facility] Comment on above: Performed By: #### C BC #### [facility] [address] [place] [address] Dr. Alejandro Schuler NEUT # 6.1 103/ul Normal 1.4-6.5 [facility] Comment on above: Performed By: #### C BC #### [facility] [address] [place] [address] Dr. Alejandro Schuler Neutrophils/100 WBC (Bld) 70.4 % Normal 43.0-75.0 [facility] Comment on above: Performed By: #### C BC #### [facility] [address] [place] [address] Dr. Alejandro Schuler Platelet mean volume (Bld) [Entitic vol] 8.8 fL Critically low 9.5-13.5 [facility] Comment on above: Performed By: #### C BC #### [facility] [address] [place] [address] Dr. Alejandro Schuler PLT 245 103/ul Normal 150-[address] [facility] Comment on above: Performed By: #### C BC #### [facility] [address] [place] [address] Dr. Alejandro Schuler RBC 4.59 106/ul Normal 4.20-5.[address] [facility] Comment on above: Performed By: #### C BC #### [facility] [address] [place] [address] Dr. Alejandro Schuler WBC 8.7 103/ul Normal 4.0-11.[address] [facility] Comment on above: Performed By: #### C BC #### [facility] [address] [place] [address] Dr. Alejandro Schuler CULTURE URINEon 03-15-2023 CULTURE URINE Culture Observations : LIGHT GROWTH OF MIXED GENITAL MAK. NO POTENTIAL PATHOGENS SEEN. Normal [facility] Comment on above: Performed By: #### U RCX #### [facility] [address] [place] [address] Dr. Alejandro Schuler ER URINE PROFILEon 3 Bilirubin Ql (U) Negative Normal NEGATIVE [facility] Comment on above: Performed By: #### U MICRO, ERUR, PREGU #### [facility] [address] [address] [address] Alejandro Schuler Clarity (U) CLEAR Normal CLEAR [facility] Comment on above: Performed By: #### U MICRO, ERUR, PREGU #### [facility] [address] [address] [address] Alejandro Schuler Color (U) YELLOW Normal YELLOW [facility] Comment on above: Performed By: #### U MICRO, ERUR, PREGU #### [facility] [address] [address] [address] Alejandro CHILDRESS A micrscopic examina tion will be performed if indicated. Normal [facility] Comment on above: Performed By: #### U MICRO, ERUR, PREGU #### [facility] [address] [address] [address] Alejandro Schuler Glucose Ql (U) Negative Normal NEGATIVE [facility] Comment on above: Performed By: #### U MICRO, ERUR, PREGU #### [facility] [address] [address] [address] Alejandro Schuler Hemoglobin Ql (U) LARGE Abnormal NEGATIVE [facility] Comment on above: Performed By: #### U MICRO, ERUR, PREGU #### [facility] [address] [address] [address] Alejandro Schuler Ketones Ql (U) >=80 Abnormal NEGATIVE [facility] Comment on above: Performed By: #### U MICRO, ERUR, PREGU #### [facility] [address] [address] [address] Alejandro Schuler LEUKOCYTES TRACE Abnormal NEGATIVE [facility] Comment on above: Performed By: #### U MICRO, ERUR, PREGU #### [facility] [address] [address] [address] Alejandro Schuler Nitrite Ql (U) Negative Normal NEGATIVE [facility] Comment on above: Performed By: #### U MICRO, ERUR, PREGU #### [facility] [address] [place] [address] Dr. Alejandro Schuler pH (U) 6.0 [pH] Normal 5-9 [facility] Comment on above: Performed By: #### U MICRO, ERUR, PREGU #### [facility] [address] [place] [address] Dr. Alejandro Schuler SPEC GRAVITY >=1.030 Abnormal 1.005-<=1.02 5 [facility] Comment on above: Performed By: #### U MICRO, ERUR, PREGU #### [facility] [address] [place] [address] Dr. Alejandro Schuler UA PROTEIN TRACE Normal NEGATIVE/ TRACE [facility] Comment on above: Performed By: #### U MICRO, ERUR, PREGU #### [facility] [address] [place] [address] Dr. Alejandro Schuler UR MICRO IND INDICATED Normal [facility] Comment on above: Performed By: #### U MICRO, ERUR, PREGU #### [facility] [address] [place] [address] Dr. Alejandro Schuler Urobilinogen Qn (U) 1.0 {Nannette'U}/dL Normal 0.2 - 1.0 [facility] Comment on above: Performed By: #### U MICRO, ERUR, PREGU #### [facility] [address] [place] [address] Dr. Alejandro Schuler PREG QUANT HCGon 03-15-2023 HCG QUANT [id number] mIU/mL Normal [facility] Comment on above: Performed By: #### P REGQNT #### [facility] [address] [place] [address] Dr. Alejandro Schuler HCG RANGE SEE BELOW Normal [facility] Comment on above: Result Comment: 5-50 0.2-1 WEEK 50-500 1-2 WEEKS 100-5,000 2-3 WEEKS 500-10,000 3-4 WEEKS 1,000-50,000 4-5 WEEKS 10,000-100,000 5-6 WEEKS 15,000-200,000 6-8 WEEKS 10,000-100,000 2-3 MONTHS Performed By: #### P REGQNT #### [facility] [address] [address] [address] Alejandro Schuler URon 03-15-2023 , QUAL Positive Abnormal NEGATIVE [facility] Comment on above: Performed By: #### U MICRO, ERUR, PREGU #### [facility] [address] [address] [address] Alejandro Schuler PROF CHEM 8 (BAS METB)on Anion gap [Moles/Vol] 14.7 mmol/L Normal [facility] Comment on above: Performed By: #### B MP #### [facility] [address] [address] [address] Alejandro Schuler Calcium [Mass/Vol] 9.1 mg/dL Normal 8.5-10.1 [facility] Comment on above: Performed By: #### B MP #### [facility] [address] [address] [address] Alejandro Schuler Chloride [Moles/Vol] 101 mmol/L Normal 98-[address] [facility] Comment on above: Performed By: #### B MP #### [facility] [address] [address] [address] Alejandro Schuler CO2 [Moles/Vol] 23.8 mmol/L Normal 21.0-32.0 [facility] Comment on above: Performed By: #### B MP #### [facility] [address] [address] [address] Alejandro Schuler Creatinine [Mass/Vol] 0.56 mg/dL Normal 0.55-1.[address] [facility] Comment on above: Performed By: #### B MP #### [facility] [address] [address] [address] Alejandro Schuler EGFR-AF MAURITIAN >60 Normal >=60 [facility] Comment on above: Performed By: #### B MP #### [facility] [address] [address] [address] Alejandro Schuler EGFR-NON AF MAURITIAN >60 Normal >=60 [facility] Comment on above: Performed By: #### B MP #### [facility] [address] [address] [address] Alejandro Schuler Glucose [Mass/Vol] 78 mg/dL Normal 74-[address] [facility] Comment on above: Performed By: #### B MP #### [facility] [address] [address] [address] Alejandro Schuler Potassium [Moles/Vol] 3.5 mmol/L Normal 3.5-5.[address] [facility] Comment on above: Performed By: #### B MP #### [facility] [address] [address] [address] Alejandro Schuler Sodium [Moles/Vol] 136 mmol/L Normal 136-[address] [facility] Comment on above: Performed By: #### B MP #### [facility] [address] [place] [address] Dr. Alejandro Schuler Urea nitrogen [Mass/Vol] 8.0 mg/dL Normal 6.4-19.[address] [facility] Comment on above: Performed By: #### B MP #### [facility] [address] [place] [address] Dr. Alejandro Schuler Urea nitrogen/Creatini ne [Mass ratio] 14.3 mg/mg Normal [facility] Comment on above: Performed By: #### B MP #### [facility] [address] [place] [address] Dr. Alejandro Schuler URINE MICROSCOPIC ONLYon BACTERIA SMALL Abnormal NONE SEEN [facility] Comment on above: Performed By: #### U MICRO, ERUR, PREGU #### [facility] [address] [place] [address] Dr. Alejandro Schuler Bacteria identified Cx Nom (U) INDICATED Normal [facility] Comment on above: Performed By: #### U MICRO, ERUR, PREGU #### [facility] [address] [place] [address] Dr. Alejandro Schuler CAST NONE SEEN Normal NONE SEEN [facility] Comment on above: Performed By: #### U MICRO, ERUR, PREGU #### [facility] [address] [address] [address] Alejandro Schuler Crystals LM Nom (Urine sed) NONE SEEN Normal NONE SEEN [facility] Comment on above: Performed By: #### U MICRO, ERUR, PREGU #### [facility] [address] [address] [address] Alejandro Schuler Epithelial cells LM Ql (Urine sed) FEW Abnormal NONE SEEN /RARE [facility] Comment on above: Performed By: #### U MICRO, ERUR, PREGU #### [facility] [address] [address] [address] Alejandro Schuler MUCOUS TRACE Abnormal NONE SEEN [facility] Comment on above: Performed By: #### U MICRO, ERUR, PREGU #### [facility] [address] [address] [address] Alejandro Schuler RBC 20-50 Abnormal 0-[address] [facility] Comment on above: Performed By: #### U MICRO, ERUR, PREGU #### [facility] [address] [address] [address] Alejandro Schuler WBC 5-10 Abnormal NONE SEEN [facility] Comment on above: Performed By: #### U MICRO, ERUR, PREGU #### [facility] [address] [address] [address] Alejandro Schuler US PREG TVon 03-15-2023 US PREG TV EXAM: US PREG TV HISTORY: Pain COMPARISON: None. TECHNIQUE: Ultrasound obstetrical first trimester. FINDINGS: Single living intrauterine gestation with cardiac rate of 179 bpm. Yolk sac is present. Gulf-rump length measurement of 2.23 cm yielding estimated [...] by: CARMEN AGUIRRE Date: 2023-03-15 18:03 Normal [facility] Urine Cultureon 06-18-2018 Bacteria identified Cx Nom (U) Urine CultureUrine Culture [id number] URINE-MIDSTREAM CLEAN CATCHURINE-MIDSTREAM CLEAN CATCH No significant growthNo significant growth 06/18/2018 FINAL 06/18/2018 FINAL Normal [facility] Comment on above: Performed By: #### U RCUL ####[facility] [id number] Jerica Oliveira[place]OTH[place], [place] [phone] ED NOTEon 06-17-2018 ED NOTE HNO ID: [id number] Author: Janett Toledo RN Service: (none) Author Type: Registered Nurse Type: ED Notes Filed: 06/16/2018 10:46 PM Note Text: Patient tolerated po fluids- pain 12/29- discharge instructions given- father verbalized understanding Normal [facility] ED PROV NOTEon 06-17-2018 Protein mass conc HNO ID: [id number] thor: RORY Schulteervice: Emergency MedicineAuthor Type: PhysicianType: ED Provider NotesFiled: 06/17/2018 5:11 AMNote Text:ED Provider NotePatient Name: Carole PinoerMRN: [id number] DATE: 06/16/18HistoryPatient presents with:Abdominal Pain: L sideHistory [...] and stridor.Cardiovascular: Negative for chest pain and palpitations.Gastrointesti nal: Positive for abdominal pain, nausea and vomiting.Negative for anorexia, constipation, diarrhea, hematemesis andhematochezia.Genitourin kina: Negative for dysuria and hematuria.Musculoskeletal: Negative for back pain and neck stiffness.Skin: Negative for pallor, rash and wound.Allergic/Immunologic : Negative for immunocompromised state.Neurological: Negative for seizures and syncope.Psychiatric/Behavi oral: Negative.All other systems reviewed and are negative.Physical [...] normal. She exhibits no distension.There is no tenderness.Musculoskeletal : She exhibits no edema.Neurological: She is alert [...] of disposition: stableSIGNATURE: Bruce Steel MD06/17/18 0511 [facility] ED NOTEon 06-16-2018 ED NOTE HNO ID: [id number] thor: Janett Toledo, RNService: (none)Author Type: Registered NurseType: ED NotesFiled: 06/16/2018 9:08 PMNote Text: C/o pain to left side of umbilicus- onset 40 minutes ago- nausea withvomiting every morning for the past 3 days [facility] ED NOTE HNO ID: [id number] thor: Era Rollins, RNService: (none)Author Type: Registered NurseType: ED NotesFiled: 06/16/2018 8:53 PMNote Text:Pt presents to ED for L side abd pain that started about 20 min [employer]. Ptdenies any nausea or vomiting. Dad states she has been sick the pastcouple of mornings. Normal [facility] HCG, Urine qualon 06-16-2018 HCG.beta subunit ( test) Ql (U) Negative Normal Negative [facility] Comment on above: Performed By: #### U HCGQL ####[facility] [id number] [place], [place] [phone] Urinalysison 06-16-2018 Bilirubin Negative Normal Negative [facility] Comment on above: Performed By: #### U A ####[facility] [id number] [place], [place] [phone] Clarity Nom (U) Clear Normal Clear [facility] Comment on above: Performed By: #### U A ####[facility] [id number] [phone] Color Nom (U) Yellow Normal Yellow [facility] Comment on above: Performed By: #### U A ####[facility] [id number] [place] [phone] Epithelial Cells Few Normal [facility] Comment on above: Result Comment: Squa mous Epithelial CellsFewTransitional Epithelial Cells Performed By: #### U A ####[facility] [id number] [place] [phone] Glucose Negative Normal Negative [facility] Comment on above: Performed By: #### U A ####[facility] [id number] [place] [phone] Hemoglobin/Blood Moderate Critically abnormal Negative [facility] Comment on above: Performed By: #### U A ####[facility] Ous[address] [place] [phone] INR Coag RelTime (Bld) 0-3 Normal 0-3 [facility] Comment on above: Performed By: #### U A ####[facility] [id number] [place] [phone] Ketone Negative Normal Negative [facility] Comment on above: Performed By: #### U A ####[facility] Clinical [id number] [place] [phone] Leukest Negative Normal Negative [facility] Comment on above: Performed By: #### U A ####[facility] Clinical [id number] [place] [phone] Nitrites Negative Normal Negative [facility] Comment on above: Performed By: #### U A ####[facility] Clinical [id number] [place] [phone] pH Test strip (U) 6.0 [pH] Normal 5-7 [facility] Comment on above: Performed By: #### U A ####[facility] Clinical [id number] [place], [place] [phone] Protein mass conc Negative Normal Negative [facility] Comment on above: Performed By: #### U A ####[facility] Clinical [id number] [facility] [phone] Urine Pito Comment Moderate Normal [facility] Comment on above: Result Comment: MUCO US Performed By: #### U A ####[facility] Clinical [id number] [place], [place] [phone] Urine Spec [place] 1.011 Normal 1.005-1.030 [facility] Comment on above: Performed By: #### U A ####[facility] Clinical [id number] [place], [place] [phone] Urobilinogen <2.0 Normal 0.0-1.0 [facility] Comment on above: Performed By: #### U A ####[facility] Clinical [id number] [place], [place] [phone] WBC 0-5 Normal 0-5 [facility] Comment on above: Performed By: #### U A ####[facility] Clinical [id number] [place], [place] [phone] Vital Signs Date Time Vital Sign Value Performing Clinician Marisabel dumont 09-11-2024 13:48-0500 Body mass index (BMI) [Ratio] 26.12 kg/m2 [facility] 09-11-2024 13:48-0500 Body weight 64.77 kg [facility] Encounters Encounter Date Encounter Type Care Provider Facility Start: 10-06-2024 End: 10-06-2024 ambulatory DAGMAR FACUNDO Not Available Start: 10-06-2024 End: 10-06-2024 Office outpatient visit 15 minutes Dagmar Facundo DO Work Phone: [facility] Comment on above: First trimester preg dante; 12 weeks gestation of ; Nausea and vomiting in Start: 10-06-2024 End: 10-06-2024 Bamboo flowsheet Dagmar Facundo DO Work Phone: [facility] Start: 10-06-2024 End: 10-06-2024 Bamboo flowsheet Dagmar Facundo DO Work Phone: [facility] Start: 10-06-2024 End: 10-06-2024 Clinisync Result Encounter Dagmar Facundo DO Work Phone: [facility] Unsolicited Start: 09-11-2024 End: 09-11-2024 Office outpatient visit 5 minutes [facility] Facundo Nurse [facility] Comment on above: GA: 9w1d Start: 09-11-2024 End: 09-11-2024 ambulatory NATTY LIN Not Available Start: 04-14-2024 End: 04-14-2024 Emergency department patient visit RACHELLE Bella [facility] Start: 11-26-2023 End: 11-26-2023 ambulatory NATTY LIN Not Available Start: 03-15-2023 End: 03-15-2023 ambulatory STEPHANIE LIN Facility: Start: 06-16-2018 End: 06-17-2018 Emergency department patient visit JULY COLEMAN [facility] Procedures Date Procedure Procedure Detail Performing Clinician Start: 10-06-2024 BOX TEST Dagmar Fazi o DO Work Phone: Start: 10-06-2024 Urnls dip stick/tabl et rgnt non-auto w/o micrscp Dagmar Facundo DO Work Phone: Start: 09-11-2024 Urnls dip stick/tabl et rgnt non-auto w/o micrscp Dagmar Facundo DO Work Phone: Plan of Treatment Date Care Activity Detail Author Start: 10-06-2024 End: 10-06-2024 Patient encounter procedure 10/06/2024 11:10 AM EST Routine [facility] [address] [place] [phone] Facundo, Dagmar, DO [address] [place] [address] [facility] Start: 09-11-2024 End: 09-11-2025 ABO/Rh ABO/Rh Lab Routine Missed menses , unspecified gestational age Expected: 09/11/2024 (Approximate), Expires: 09/11/2025 [facility] Comment on above: Expected: 09/11/2024 (Approximate), Expires: 09/11/2025 Start: 09-11-2024 End: 09-11-2025 Blood type and Indirect antibody screen panel - Blood Type and screen Lab Routine Missed menses , unspecified gestational age Expected: 09/11/2024 (Approximate), Expires: 09/11/2025 [facility] Work Phone: Comment on above: Expected: 09/11/2024 (Approximate), Expires: 09/11/2025 Start: 09-11-2024 End: 09-11-2025 Drugs of abuse panel - Urine by Screen method Rapid drug screen, urine Lab Routine , unspecified gestational age Encounter for supervision of normal first in first trimester Expected: 09/11/2024 (Approximate), Expires: 09/11/2025 [facility] Comment on above: Expected: 09/11/2024 (Approximate), Expires: 09/11/2025 Start: 09-11-2024 End: 09-11-2025 US Pelvis transvaginal US OB transvaginal Imaging Routine Missed menses Expected: 09/11/2024 (Approximate), Expires: 09/11/2025 [facility] Comment on above: Expected: 09/11/2024 (Approximate), Expires: 09/11/2025 Start: 06-22-2024 Influenza vaccination Influenza Vacc ine (#1) [facility] Bacteria identified in Urine by Culture Urine culture Microbiology Routine Missed menses Ordered: 09/11/2024 [facility] Comment on above: Ordered: 09/11/2024 CBC W Auto Different ial panel - Blood CBC and differential Lab Routine Missed menses , unspecified gestational age Ordered: 09/11/2024 [facility] Comment on above: Ordered: 09/11/2024 Hemoglobin A1c/Hemoglobin.total in Blood Hemoglobin A1c Lab Routine Missed menses , unspecified gestational age Ordered: 09/11/2024 [facility] Comment on above: Ordered: 09/11/2024 Hepatitis B virus surface Ag [Presence] in Serum or Plasma by Immunoassay Hepatitis B surface antigen Lab Routine Missed menses , unspecified gestational age Ordered: 09/11/2024 [facility] Comment on above: Ordered: 09/11/2024 Hepatitis C virus Ab [Presence] in Serum or Plasma by Immunoassay Hepatitis C antibody Lab Routine Missed menses , unspecified gestational age Ordered: 09/11/2024 [facility] Comment on above: Ordered: 09/11/2024 HIV-1/HIV-2 antigen/antibody combination immunoassay HIV-1 and HIV-2 antibodies Lab Routine Missed menses , unspecified gestational age Ordered: 09/11/2024 [facility] Comment on above: Ordered: 09/11/2024 Reagin Ab [Presence] in Serum by RPR RPR Lab Routine Missed menses , unspecified gestational age Ordered: 09/11/2024 [facility] Comment on above: Ordered: 09/11/2024 Rubella antibody, IgG Rubella an tibody, IgG Lab Routine Missed menses , unspecified gestational age Ordered: 09/11/2024 [facility] Comment on above: Ordered: 09/11/2024 Payers Date Payer Category Payer Medicaid (Managed Care) [employer] [id number] 2003 Unknown [id number] 2003 Unknown [id number] 2003 Unknown [id number] 2003 Unknown [id number] 2003 Unknown [id number] 1959 Unknown [id number] Social History Date Type Detail Facility Tobacco smoking stat [facility] Tobacco smoking consumption unknown [facility] Start: 07-23-2024 [facility] Start: 2005 Sex assigned at Not on file [facility] Gender identity Not on file [facility] History of Present illness Narrative 10-06-2024 Marisol Arellano LPN - 10/06/2024 2:40 PM EST Note Date & Type Note Facility 10-06-2024 History of Presen t illness Narrative Reason for Appointment: Patient ID: Carole Thorpe is a 19 y.o. female who presents for Routine Visit Patient presents today for Return OB appointment. MEDICATIONS Current Outpatient Medications Medication Instructions metoclopramide (REGLAN) 10 mg, Oral, 3 times daily before meals, Take 1 tablet by mouth 30 minutes prior to meals 3 times daily as needed for nausea. ALLERGIES No Known Allergies PROBLEMS Active Ambulatory Problems Diagnosis Date Noted No Active Ambulatory Problems Resolved Ambulatory Problems Diagnosis Date Noted No Resolved Ambulatory Problems No Additional Past Medical History HISTORY PAST MEDICAL HISTORY SOCIAL HISTORY No past medical history on file. Social History Tobacco Use Smoking status: Not on file Smokeless tobacco: Not on file Vaping Use Vaping status: Every Day Substances: Nicotine Substance Use Topics Alcohol use: Not on file Drug use: Not on file FAMILY HISTORY No family history on file. SURGICAL HISTORY No past surgical history on file. REVIEW OF SYSTEMS Review of Systems: Review of Systems All other systems reviewed and are negative. OBJECTIVE Objective: Physical Exam Constitutional: Appearance: Normal appearance. She is well-developed. Cardiovascular: Rate and Rhythm: Normal rate and regular rhythm. Pulmonary: Effort: Pulmonary effort is normal. Breath sounds: Normal breath sounds. Abdominal: General: Bowel sounds are normal. There is no distension. Palpations: Abdomen is soft. Tenderness: There is no abdominal tenderness. There is no guarding or rebound. Musculoskeletal: General: No swelling. Normal range of motion. Right lower leg: No edema. Left lower leg: No edema. Neurological: Mental Status: She is alert and oriented to person, place, and time. Skin: General: Skin is warm and dry. Psychiatric: Mood and Affect: Mood normal. Behavior: Behavior normal. Vitals and nursing note reviewed. Exam conducted with a letterset press set up operator present. Vitals: Estimated body mass index is 26.12 kg/m as calculated from the following: Height as of 07/31/23: 5' 2 . Weight as of 09/11/24: 142 lb 12.8 oz. BP: Patient's last menstrual period was 07/03/2024. ASSESSMENT & PLAN ICD-10-CM 1. First trimester Z34.91 POCT urinalysis dipstick manually resulted 2. 12 weeks gestation of Z3A.12 3. Nausea and vomiting in O21.9 metoclopramide (Reglan) 10 MG tablet New OB: Patient presents today for 1st time obstetrics appointment with provider. Patient is currently 12w5d . Patients history has been reviewed in great detail including any potential risks. Patient stated she currently has no complaints. Expectations throughout regarding labs, ultrasounds, and appointments have been discussed with the patient in detail. It was reiterated that the patient is to drink 6-8 glasses of water a day, eat 6 small meals a day, do not consume raw or undercooked meat, and stay away from [facility]. Patient has been consulted regarding any further do's and don'ts of . Patient voiced understanding and all questions and concerns were answered. Patients OB Intake Labs were reprinted and given along with [place] orders. Orders Placed This Encounter Procedures POCT urinalysis dipstick manually resulted Follow Up: Patient is to return in 4 weeks for routine OB appointment. Documented by Marisol Arellano LPN on behalf of: Dagmar Loredo DO documented in this encounter [facility] History of Present illness Narrative 09-11-2024 Neema Pang LPN - 09/11/2024 1:30 PM EST Note Date & Type Note Facility 09-11-2024 History of Presen t illness Narrative Reason for Appointment: Patient ID: Carole Thorpe is a 18 y.o. female who presents for Amenorrhea Patient presents today for a Nurse OB Intake appointment. Patient is 9w1d with a Estimated Date of Delivery: 04/15/25 OB History Para Term AB Living 2 1 SAB IAB Ectopic Multiple Live Births # Outcome Date GA Lbr Tony/2nd Weight Sex Type Anes PTL Lv 2 Current 1 Current Medications: currently has no medications in their medication list. Medical History: Active Ambulatory Problems Diagnosis Date Noted No Active Ambulatory Problems Resolved Ambulatory Problems Diagnosis Date Noted No Resolved Ambulatory Problems No Additional Past Medical History No family history on file. Social History Tobacco Use Smoking status: Not on file Smokeless tobacco: Not on file Vaping Use Vaping status: Every Day Substances: Nicotine Substance Use Topics Alcohol use: Not on file Drug use: Not on file History reviewed. No pertinent surgical history. No Known Allergies Vitals: Estimated body mass index is 26.12 kg/m as calculated from the following: Height as of 07/31/23: 5' 2 . Weight as of this encounter: 142 lb 12.8 oz. BP: Patient's last menstrual period was 07/03/2024. Assessment/Plan Diagnoses and all orders for this visit: Missed menses - Type and screen; Future - ABO/Rh; Future - CBC and differential - Hemoglobin A1c - RPR - Rubella antibody, IgG - Hepatitis B surface antigen - Hepatitis C antibody - HIV-1 and HIV-2 antibodies - Urine culture - US OB transvaginal; Future - POCT , urine manually resulted - POCT urinalysis dipstick manually resulted , unspecified gestational age - Type and screen; Future - ABO/Rh; Future - CBC and differential - Hemoglobin A1c - RPR - Rubella antibody, IgG - Hepatitis B surface antigen - Hepatitis C antibody - HIV-1 and HIV-2 antibodies - Rapid drug screen, urine; Future Encounter for supervision of normal first in first trimester - Rapid drug screen, urine; Future Nurse Note: OB Intake: Patient presents today for first OB visit. Patients history has been reviewed in great detail including any potential risks. Patient signed consent forms and patient desires testing in both trimesters. Patient currently has no complaints and has been advised to drink 6-8 glasses of water a day, eat no raw or undercooked meat, and stay away from [facility]. Patient has also been advised to not change litter boxes and eat 6 small meals a day. Patient has been consulted regarding the do's and don'ts of . Patient was given labs and all questions and concerns were answered. Pt complains of nausea and headaches but declines any medication offered. Follow Up: Patient is to return in 4 weeks for routine OB appointment. Follow Up: Patient is to have labs drawn at directed and return to office for initial OB appointment with provider. Patient may call office as needed with any concerns or questions. Nurse Visit Completed by: Neema Pang LPN documented in this encounter [facility] Evaluation note Note Date & Type Note Facility Evaluation note Diagnosis Missed menses , unspecified gestational age Encounter for supervision of normal first in first trimester documented in this encounter [facility] Evaluation note Note Date & Type Note Facility Evaluation note Diagnosis First trimester state, incidental 12 weeks gestation of Nausea and vomiting in Unspecified vomiting of , unspecified as to episode of care documented in this encounter [facility] Summary Purpose Family History No Family History Records FoundNo Family History Records FoundNo Family History Records FoundNo Family History Records Found Advance Directives No Advanced Directives Records FoundNo Advanced Directives Records FoundNo Advanced Directives Records FoundNo Advanced Directives Records Found Additional Source Comments INFORMATION SOURCE (unrecogn ized section and content) DATE CREATED AUTHOR 06/21/2018 [facility] DATE CREATED AUTHOR AUTHOR'S ORGANIZ ATION 03/30/2023 [facility] DATE CREATED AUTHOR AUTHOR'S ORGANIZ ATION 04/14/2024 [facility] DATE CREATED AUTHOR AUTHOR'S ORGANIZ ATION 10/08/2024 [facility] EPIC Reason for Visit (unrecogniz ed section and content) Reason Comments Amenorrhea Reason Comments Routine Visit Care Teams (unrecognized sec tion and content) Core Microarchitect Relationship Specialty Start Date End Date Natty Lin PA [facility] [place] [address] PCP - [facility] 01/21/24 Core Microarchitect Relationship Specialty Start Date End Date Natty Lin PA [facility] [place] [address] [facility] 01/21/24 Core Microarchitect Relationship Specialty Start Date End Date Natty Lin PA [address] [place] [address] [facility] 01/21/24 Core Microarchitect Relationship Specialty Start Date End Date Natty Lin PA [address] [facility] [place] [address] [facility] 01/21/24 FOR RECORDS PERTAINING TO PATIENTS WHO ARE [...] BE BASED ON THE PRIMARY CLINICAL RECORDS. [facility] [employer] provides no warranty or guarantee of the accuracy or completeness of information in this document.
[2024-11-19 09:08] LABS: Age Gdln ACOG Testing Note (.); IGP, rfx Aptima HPV ASCU Note (.)
== END 2024-11-13 18:56 | disposition home or self-care (01) ==
LOC: LAB 18:55
PROVIDERS: Visit Provider Physician Assistant
DX: Z01.419 Encounter for gynecological examination (general) (routine) without abnormal findings (principal)
CPT/HCPCS: 88175

== ENCOUNTER 2024-12-29 14:43 | Outpatient (OUT) | payer OTHER, SELFPAY ==
--- NOTE | 2024-12-29 14:51 | US_ITS ---
The [address] [address] Patient Name: MACIEJ BARAHONA MRN: [id number] date: 2005 Sex: F Assigned Patient Location: Current Patient Location: Accession/Order Number: [id number] Exam Date: 12/30/2024 09:11 Report Date: 12/30/2024 09:18 At the request of: PERCY LIN Procedure: US OB cervical length CLINICAL DATA: Anatomy survey and cervical length ULTRASOUND OB ANATOMY COMPARISON: 09/11/2024 There is a single live intrauterine gestation in cephalic presentation. There is cardiac and somatic activity with heart rate of 138 beats per minutes. There is an anterior placenta which is normal in appearance and position. The amniotic fluid volume is subjectively normal. The neural axis and all 4 extremities were surveyed by the ice skating instructor and no abnormalities were detected. The facial features, three-vessel cord with insertion, bladder, kidneys, diaphragm, stomach and four-chamber heart are visualized. The following measurements were obtained: Biparietal diameter 6.2 cm 25 weeks 1 day 56% Head circumference 23.1 cm 25 weeks 1 day 43% Abdominal circumference 20.3 cm 25 weeks 0 days 48% Femur length 4.7 cm 25 weeks 5 days 69% The composite ultrasound age based on these measurements is 25 weeks 2 days +/- 1 week 5 days. US/US OB anatomy IMPRESSION: SINGLE LIVE INTRAUTERINE GESTATION WITH ULTRASOUND AGE OF 25 WEEKS 2 DAYS. UNREMARKABLE ANATOMY SURVEY. OB ULTRASOUND CERVIX COMPARISON: 09/11/2024 The cervix is closed. Estimated length using the transvaginal probe is 4.6 cm. IMPRESSION: UNREMARKABLE CERVIX Impression dictated by: Bess Mcconnell M.D.12/30/2024 9:18 AM Dictation Location: [place] [address] Electronically authenticated by: [id number] Y Date: 12/30/2024 09:18
--- NOTE | 2024-12-29 14:51 | US_ITS ---
The [address] [address] Patient Name: MACIEJ BARAHONA MRN: [id number] date: 2005 Sex: F Assigned Patient Location: Current Patient Location: Accession/Order Number: [id number] Exam Date: 12/30/2024 09:11 Report Date: 12/30/2024 09:18 At the request of: PERCY LIN Procedure: US OB cervical length CLINICAL DATA: Anatomy survey and cervical length ULTRASOUND OB ANATOMY COMPARISON: 09/11/2024 There is a single live intrauterine gestation in cephalic presentation. There is cardiac and somatic activity with heart rate of 138 beats per minutes. There is an anterior placenta which is normal in appearance and position. The amniotic fluid volume is subjectively normal. The neural axis and all 4 extremities were surveyed by the memory care program director and no abnormalities were detected. The facial features, three-vessel cord with insertion, bladder, kidneys, diaphragm, stomach and four-chamber heart are visualized. The following measurements were obtained: Biparietal diameter 6.2 cm 25 weeks 1 day 56% Head circumference 23.1 cm 25 weeks 1 day 43% Abdominal circumference 20.3 cm 25 weeks 0 days 48% Femur length 4.7 cm 25 weeks 5 days 69% The composite ultrasound age based on these measurements is 25 weeks 2 days +/- 1 week 5 days. US/US OB cervical length IMPRESSION: SINGLE LIVE INTRAUTERINE GESTATION WITH ULTRASOUND AGE OF 25 WEEKS 2 DAYS. UNREMARKABLE ANATOMY SURVEY. OB ULTRASOUND CERVIX COMPARISON: 09/11/2024 The cervix is closed. Estimated length using the transvaginal probe is 4.6 cm. IMPRESSION: UNREMARKABLE CERVIX Impression dictated by: Bess Mcconnell M.D.12/30/2024 9:18 AM Dictation Location: [place] [address] Electronically authenticated by: [id number] Y Date: 12/30/2024 09:18
== END 2024-12-29 14:44 | disposition home or self-care (01) ==
PROVIDERS: Visit Provider Physician Assistant
DX: Z36.89 Encounter for other specified antenatal screening (principal)
CPT/HCPCS: 76805; 76817

== ENCOUNTER 2025-02-17 15:13 | Outpatient (OUT) | payer OTHER, SELFPAY ==
[2025-02-17 15:47] LABS: Estimated Average Glucose 108 mg/dL; Glycohemoglobin A1C 5.4 % (4.5-6.2)
== END 2025-02-17 15:14 | disposition home or self-care (01) ==
LOC: LAB 15:14
PROVIDERS: Visit Provider Obstetrics & Gynecology
DX: Z13.1 Encounter for screening for diabetes mellitus (principal)
CPT/HCPCS: 36415; 83036

== ENCOUNTER 2025-03-18 20:13 | Outpatient (REF) | payer OTHER, SELFPAY ==
--- OUTSIDE RECORDS SUMMARY | 2025-03-18 20:18 | XMS_ITS | CCD ---
Author Organization [facility] Care Team Providers Care Blueprint Assembler Name Role Phone JULY ASENCIO Unavailable Unavailable STEPHANIE LIN Attending Unavailable STEPHANIE LIN Consulting Unavailable STEPHANIE LIN Admitting Unavailable REQUEST, NONE LISTED Primary Care UnavailCARMEN Odell Consulting Unavailable RACHELLE COLLAZO Attending Unavailable NO PCP, NO PCP Primary Care Unavailable Natty Sterling Unavailable NATTY LIN Attending Unavailable NATTY LIN Attending Unavailable DAGMAR LOREDO Attending Unavailable NATTY LIN Attending Unavailable NATTY LIN Referring Unavailable DAGMAR LOREDO Attending Unavailable DAGMAR LOREDO Attending Unavailable NATTY LIN Attending Unavailable Medications Current Medications Medication Drug Class(es) Dates Sig (Normalized) Sig (Original) metoclopramide 10 mg oral tablet (9 sources) Dopamine-2 Receptor Antagonist Start: 10-06-2024 End: 12-15-2024 metoclopramide (Reglan) 10 MG tablet Indications: Nausea and vomiting in Take 1 tablet (10 mg) by mouth in the morning and 1 tablet (10 mg) at noon and 1 tablet (10 mg) in the evening. Take before meals. Take 1 tablet by mouth 30 minutes prior to meals 3 times daily as needed for nausea.. 90 tablet 10/06/2024 12/15/2024 Discontinued norethindrone 0.35 mg oral tablet (1 source) Start: 11-26-2023 End: 09-11-2024 take 1 tablet by mouth in the morning, then take 1 tablet by mouth once daily norethindrone (Micronor) 0.35 MG tablet Indications: Uses control Take 1 tablet (0.35 mg) by mouth in the morning. Take 1 tablet by mouth daily. 360 tablet 11/26/2023 09/11/2024 Discontinued (Other) Problems Problem Classification Problem Date Documented Date Episodic/Chronic Abdominal pain (1 source) Unspecified abdominal pain; Translations: [Unspecified abdominal pain] Onset: 06-16-2018 Episodic Disorders of teeth and jaw (2 sources) Periapical abscess without sinus; Translations: [Toothache] Onset: 04-14-2024 Episodic Genitourinary symptoms and ill-defined conditions (3 sources) Hematuria, unspecified; Translations: [HEMATURIA UNSPECIFIED] Onset: 03-15-2023 Episodic Immunizations and screening for infectious disease (2 sources) Exposure to sexually transmissible disorder; Translations: [Contact with and (suspected) exposure to infections with a predominantly sexual mode of transmission] 11-13-2024 Episodic Menstrual disorders (1 source) Missed period; [...] care or not applicable] 10-06-2024 Episodic Other complications of (2 sources) size does not accord with dates; Translations: [Uterine size-date discrepancy, unspecified trimester] 01-28-2025 Episodic Other female genital disorders (2 sources) Vaginal discharge; Translations: [Other specified noninflammatory disorders of vagina] 11-13-2024 Episodic Other and delivery including normal (16 sources) ; Translations: [Encounter for supervision of normal , unspecified, unspecified trimester] 09-11-2024 Episodic Other screening for suspected conditions (not mental disorders or infectious disease) (6 sources) Patient encounter status; Translations: [Encounter for other specified screening] 11-13-2024 Episodic Other skin disorders (1 source) Facial swelling Onset: 04-14-2024 Episodic Residual codes; unclassified (1 source) 9 weeks gestation of ; Translations: [9 WEEKS GESTATION OF ] Onset: 03-19-2023 Episodic Residual codes; unclassified (2 sources) Gestation period, 12 weeks; Translations: [12 weeks gestation of ] 10-06-2024 Episodic Residual codes; unclassified (2 sources) Gestation period, 18 weeks; Translations: [18 weeks gestation of ] 11-13-2024 Episodic Residual codes; unclassified (2 sources) Gestation period, 22 weeks; Translations: [22 weeks gestation of ] 12-15-2024 Episodic Residual codes; unclassified (2 sources) Gestation period, 28 weeks; Translations: [28 weeks gestation of ] 01-28-2025 Episodic Residual codes; unclassified (2 sources) Gestation period, 31 weeks; Translations: [31 weeks gestation of ] 02-11-2025 Episodic Residual codes; unclassified (2 sources) Gestation period, 34 weeks; Translations: [34 weeks gestation of ] 03-10-2025 Episodic Residual codes; unclassified (2 sources) Gestation period, 36 weeks; Translations: [36 weeks gestation of ] 03-18-2025 Episodic Substance-related disorders (1 source) Nicotine dependence, cigarettes, uncomplicated; Translations: [NICOTINE DEPEND CIGARETTES UNCOMP] Onset: 03-19-2023 Chronic Urinary tract infections (1 source) Urinary tract infection, site not specified; Translations: [UTI SITE NOT SPECIFIED] Onset: 03-19-2023 Episodic Results Test Name Value Interpretation Reference Range Facility Urinalysis macro (dipstick) panel (U)on 03-18-2025 Bilirubin, UA Positive Negative - 4(70) +++ mg/dL [facility] Comment on above: small Blood, UA Negative Negative - 50 Rupert/mcL [facility] Clarity, UA Clear [facility] Color, UA Straw [facility] Glucose, UA Negative Negative - 1999(110) ++++ mg/dL [facility] Interpretation and review of laboratory results Abnormal [facility] Ketones, UA Positive Negative - 160(16) ++++ mg/dL [facility] Comment on above: 40 Leukocytes, UA Positive Negative - 500+++ Emily/mcL [facility] Comment on above: small Nitrite, UA Negative Negative - Positive [facility] pH, UA 6.5 5 - 9 [facility] Protein, UA Positive Negative - 1999(20) ++++ mg/dL [facility] Comment on above: 100 Spec Grav, UA 1.03 1 - 1.03 [facility] Urobilinogen, UA 1.0 0.2 - 12 mg/dL [facility] Urinalysis macro (dipstick) panel (U)on 03-10-2025 Bilirubin, UA Negative Negative - 4(70) +++ mg/dL [facility] Blood, UA Negative Negative - 50 Rupert/mcL [facility] Clarity, UA Clear [facility] Color, UA Yellow [facility] Glucose, UA Negative Negative - 1999(110) ++++ mg/dL [facility] Interpretation and review of laboratory results Abnormal [facility] Ketones, UA Negative Negative - 160(16) ++++ mg/dL [facility] Leukocytes, UA Positive Negative - 500+++ Emily/mcL [facility] Comment on above: large Nitrite, UA Negative Negative - Positive [facility] pH, UA 7 5 - 9 [facility] Protein, UA Positive Negative - 1999(20) ++++ mg/dL [facility] Comment on above: 30 Spec Grav, UA 1.025 1 - 1.03 [facility] Urobilinogen, UA 1.0 0.2 - 12 mg/dL [facility] MLR HEMOGLOBIN A1Con 025 Glucose [Mass/Vol] 108 mg/dL [facility] HbA1c (Bld) [Mass fraction] 5.4 % 4.5 - 6.2 % [facility] Comment on above: ADA RECOMMENDED LIMI T 4.0 - 6.0 ADA THERAPEUTIC TARGET < 7.0 ACTION SUGGESTED > 7.0 [facility] Urinalysis macro (dipstick) panel (U)Ordered By: Marisol Arellano on 02-11-2025 Bilirubin, UA Negative Negative - 4(70) +++ mg/dL [facility] Blood, UA Negative Negative - 50 Rupert/mcL [facility] Clarity, UA Clear [facility] Color, UA Yellow [facility] Glucose, UA Negative Negative - 1999(110) ++++ mg/dL [facility] Interpretation and review of laboratory results Abnormal [facility] Ketones, UA Negative Negative - 160(16) ++++ mg/dL [facility] Leukocytes, UA Few Negative - 500+++ Emily/mcL [facility] Comment on above: small Nitrite, UA Negative Negative - Positive [facility] pH, UA 7.5 5 - 9 [facility] Protein, UA Trace Negative - 1999(20) ++++ mg/dL [facility] Spec Grav, UA 1.02 1 - 1.03 [facility] Urobilinogen, UA 0.2 0.2 - 12 mg/dL [facility] US OB FOLLOW UP TRANSABDOMIN AL APPROACHon 02-05-2025 US OB FOLLOW UP TRANSABDOMINAL APPROACH EXAM: US OB FOLLOW UP TRANSABDOMINAL APPROACH HISTORY: Inconsistent size. COMPARISON: Ob ultrasound 12/29/2024. TECHNIQUE: Two-dimensional transabdominal grayscale ultrasound imaging of the pelvis was performed. FINDINGS: Gestation: Single Presentation: Cephalic Cardiac Activity: 143 beats per minute Placental Location: Anterior with no sonographic abnormalities identified. Cervical canal: Not visualized Amniotic Fluid Index: 13.9 cm MEASUREMENTS: BPD: 7.6 cm EGA: 30 weeks 2 days HC: 27.5 cm EGA: 30 weeks 1 days AC: 26.6 cm EGA: 30 weeks 5 days FL: 6.0 cm EGA: 31 weeks 1 days HC/AC Ratio: 1.04 The gestational age by today's ultrasound is 30 weeks 4 days (+/- 15 days gestation). Estimated Weight: 1622 grams, +/- 243 grams ( 3 lb 9 oz). Weight Percentile for gestational age: 57 % IMPRESSION: 1. Single, live intrauterine gestation 30 weeks, 1 days by LMP. Today's ultrasound measurements correlate with a gestational age of 30 weeks 4 days. Estimated weight is 1622 grams, +/- 243 grams ( 3 lb 9 oz) which correlates to 57 %. KIYA is 04/12/2025. Interpreted by: Electronically signed by KATLYN VAN II, MD, PHD at 07-Feb-2025 06:51:43 PM [facility] Normal Not Available Comment on above: Order Comment: US OB SCAN FOR GROWTH Estimated Date of Delivery: 04/15/25 Gestational Age as of 01/28/2025: 29w0d Urinalysis macro (dipstick) panel (U)on 12-15-2024 Bilirubin, UA Negative Negative - 4(70) +++ mg/dL [facility] Blood, UA Positive Negative - 50 Rupert/mcL [facility] Comment on above: trace-intact Clarity, UA Clear [facility] Color, UA Yellow [facility] Glucose, UA Negative Negative - 1999(110) ++++ mg/dL [facility] Interpretation and review of laboratory results Abnormal [facility] Ketones, UA Negative Negative - 160(16) ++++ mg/dL [facility] Leukocytes, UA Moderate Negative - 500+++ Emily/mcL [facility] Nitrite, UA Negative Negative - Positive [facility] pH, UA 6.5 5 - 9 [facility] Protein, UA Trace Negative - 1999(20) ++++ mg/dL [facility] Spec Grav, UA 1.03 1 - 1.03 [facility] Urobilinogen, UA 1.0 0.2 - 12 mg/dL [facility] IGP,APTIMA HPV,AGE GDLNon AGE GDLN ACOG TESTING Note . [facility] Comment on above: TESTS RESULT FLAG UN ITS REF RANGE LAB Clinician Provided Cytology Information Source.............Cervix Other.............. No. of containers..01 ThinPrep Vial Age Algo ACOG Trisha... FLAG LEGEND: L-Low Normal,H-High Normal,LL-Alert Low,HH-Alert High <-Panic Low,>-Panic High,A-Abnormal,AA-Critical Abnormal Performed at: 01 =G Keira [address] [id number] Samina Doss MD, IGP, RFX APTIMA HPV ASCU Note . [facility] Comment on above: TESTS RESULT FLAG UN ITS REF RANGE LAB DIAGNOSIS: 02 NEGATIVE FOR INTRAEPITHELIAL LESION OR MALIGNANCY. Specimen adequacy: 02 Satisfactory for evaluation. No endocervical component is identified. Performed by: 02 Tabatha Fink, Personal Banking Assistant ([facility]) . 02 Note: Note 03 The Pap smear is a screening test designed to aid in the detection of premalignant and malignant conditions of the uterine cervix. It is not a diagnostic procedure and should not be used as the sole means of detecting cervical cancer. Both false-positive and false-negative reports do occur. Test Methodology: Note 03 This liquid based ThinPrep(R) pap test was screened with the use of an image guided system. . 02 The HPV DNA reflex criteria were not met with this specimen result therefore, no HPV testing was performed. FLAG LEGEND: L-Low Normal,H-High Normal,LL-Alert Low,HH-Alert High <-Panic Low,>-Panic High,A-Abnormal,AA-Critical Abnormal Performed at: 02 [facility] [address] [place] [address] [place] [id number] Natalya Healy PhD, 03 WB [facility] [address] [id number] Samina Doss MD, Performed at: = - [facility] [address] [place], [place] [id number] Vp Public Relations: Samina Doss MD, Phone: [phone] Performed at: [facility] [address] [place] [id number] Vp Public Relations: Natalya Healy PhD, Phone: [phone] [facility] RECURRENT VAGINITIS (HTRX)on 11-14-2024 ATOPOBIUM VAGINAE 0 [facility] ATOPOBIUM VAGINAE Not detected [facility] BVAB 2,3 (BACTERIAL VAGINOSIS ASSOCIATED BACTERIA 2, 3); MOBILUNCUS SPP 0 [facility] BVAB 2,3 (BACTERIAL VAGINOSIS ASSOCIATED BACTERIA 2, 3); MOBILUNCUS SPP Not detected [facility] YESSENIA ALBICANS, PARAPSILOSIS, TROPICALIS 0 [facility] YESSENIA ALBICANS, PARAPSILOSIS, TROPICALIS Not detected [facility] YESSENIA GLABRATA 0 [facility] YESSENIA GLABRATA Not detected [facility] YESSENIA KRUSEI 0 [facility] YESSENIA KRUSEI Not detected [facility] CHLAMYDIA TRACHOMATIS 0 [facility] CHLAMYDIA TRACHOMATIS Not detected [facility] GARDNERELLA VAGINALIS 0 [facility] GARDNERELLA VAGINALIS Not detected [facility] MEGASPHAERA (TYPES 1, 2) 0 [facility] MEGASPHAERA (TYPES 1, 2) Not detected [facility] MYCOPLASMA GENITALIUM 0 [facility] MYCOPLASMA GENITALIUM Not detected [facility] NEISSERIA GONORRHOEAE 0 [facility] NEISSERIA GONORRHOEAE Not detected [facility] TRICHOMONAS VAGINALIS 0 [facility] TRICHOMONAS VAGINALIS Not detected [facility] BOX TESTon 10-06-20[address] OUT [facility] BOX[address] [facility] B[address] 10/06/2024 [facility] BOX [facility] Urinalysis macro (dipstick) panel (U)on 10-06-2024 Bilirubin, UA Positive Negative - 4(70) +++ mg/dL [facility] Comment on above: small Blood, UA Negative Negative - 50 Rupert/mcL [facility] Clarity, UA Clear [facility] Color, UA Carole [facility] Glucose, UA Negative Negative - 2000(110) ++++ mg/dL [facility] Interpretation and review of laboratory results Abnormal [facility] Ketones, UA Positive Negative - 160(16) ++++ mg/dL [facility] Comment on above: 40 Leukocytes, UA Trace Negative - 500+++ Emily/mcL [facility] Nitrite, UA Negative Negative - Positive [facility] pH, UA 7 5 - 9 [facility] Protein, UA Positive Negative - 2000(20) ++++ mg/dL [facility] Comment on above: 30 mg Spec Grav, UA 1.025 1 - 1.03 [facility] Urobilinogen, UA 1.0 0.2 - 12 mg/dL [facility] HCG ( test) Ql (U)o n 09-11-2024 Interpretation and review of laboratory results Abnormal [facility] Preg Test, Ur Positive Negative [facility] Urinalysis macro (dipstick) panel (U)on 09-11-2024 Bilirubin, UA Negative Negative - 4(70) +++ mg/dL [facility] Blood, UA Negative Negative - 50 Rupert/mcL [facility] Clarity, UA Clear [facility] Color, UA Yellow [facility] Glucose, UA Negative Negative - 1999(110) ++++ mg/dL [facility] Interpretation and review of laboratory results Abnormal [facility] Ketones, UA Negative Negative - 160(16) ++++ mg/dL [facility] Leukocytes, UA Negative Negative - 500+++ Emily/mcL [facility] Nitrite, UA Negative Negative - Positive [facility] pH, UA 5.5 5 - 9 [facility] Protein, UA Negative Negative - 1999(20) ++++ mg/dL [facility] Spec Grav, UA 1.02 1 - 1.03 [facility] Urobilinogen, UA 1.0 0.2 - 12 mg/dL [facility] ABO AND RH TYPEon 03-15-2023 ABO and Rh group Nom (Bld) ABO Rh Typing O Rh Positive Normal [facility] Comment on above: Performed By: #### A NIC #### [facility] [address] [place], [place] [address] Dr. Alejandro Schuler CBC AUTO DIFFon 03-15-2023 BASO # 0.0 103/ul Normal 0.0-0.1 [facility] Comment on above: Performed By: #### C BC #### [facility] [address] [address] [address] Alejandro Schuler Basophils/100 WBC (Bld) 0.3 % Normal 0.2-2.0 [facility] Comment on above: Performed By: #### C BC #### [facility] [address] [place] [address] Dr. Alejandro Schuler EO # 0.1 103/ul Normal 0.0-0.7 [facility] Comment on above: Performed By: #### C BC #### [facility] [address] [place] [address] Dr. Alejandro Schuler Eosinophils/100 WBC (Bld) 0.7 % Critically low 0.9-7.0 [facility] Comment on above: Performed By: #### C BC #### [facility] [address] [place] [address] Dr. Alejandro Schuler Erythrocyte distribution width (RBC) [Ratio] 12.8 % Normal 11.0-15.0 [facility] Comment on above: Performed By: #### C BC #### [facility] [address] [place] [address] Dr. Alejandro Schuler Hematocrit (Bld) [Volume fraction] 37.0 % Normal 36.0-48.0 [facility] Comment on above: Performed By: #### C BC #### [facility] [address] [place] [address] Dr. Alejandro Scuhler Hemoglobin (Bld) [Mass/Vol] 13.1 g/dL Normal 12.0-16.0 [facility] Comment on above: Performed By: #### C BC #### [facility] [address] [place] [address] Dr. Alejandro Schuler IG # 0.06 10e3/ul Critically high 0.00-0.03 [facility] Comment on above: Performed By: #### C BC #### [facility] [address] [place] [address] Dr. Alejandro Schuler IG % 0.7 % Critically high 0.0-0.5 [facility] Comment on above: Performed By: #### C BC #### [facility] [address] [address] [address] Alejandro Schuler LYMPH # 1.7 103/ul Normal 1.2-3.8 [facility] Comment on above: Performed By: #### C BC #### [facility] [address] [place] [address] Dr. Alejandro Schuler Lymphocytes/100 WBC (Bld) 20.1 % Critically low 20.5-60.0 [facility] Comment on above: Performed By: #### C BC #### [facility] [address] [place] [address] Dr. Alejandro Schuler MANUAL DIFF REQ NO Normal [facility] Comment on above: Performed By: #### C BC #### [facility] [address] [place] [address] Dr. Alejandro Schuler MCH (RBC) [Entitic mass] 28.5 pg Normal 26.7-34.0 [facility] Comment on above: Performed By: #### C BC #### [facility] [address] [place] [address] Dr. Alejandro Schuler MCHC (RBC) [Mass/Vol] 35.4 g/dL Critically high 29.9-35.2 [facility] Comment on above: Performed By: #### C BC #### [facility] [address] [place] [address] Dr. Alejandro Schuler MCV (RBC) [Entitic vol] 80.6 fL Critically low 81.0-99.0 [facility] Comment on above: Performed By: #### C BC #### [facility] [address] [place] [address] Dr. Alejandro Schuler MONO # 0.7 103/ul Normal 0.3-0.8 [facility] Comment on above: Performed By: #### C BC #### [facility] [address] [place] [address] Dr. Alejandro Schuler Monocytes/100 WBC (Bld) 7.8 % Normal 1.7-12.0 [facility] Comment on above: Performed By: #### C BC #### [facility] [address] [place] [address] Dr. Alejandro Schuler NEUT # 6.1 103/ul Normal 1.4-6.5 [facility] Comment on above: Performed By: #### C BC #### [facility] [address] [place] [address] Dr. Alejandro Schuler Neutrophils/100 WBC (Bld) 70.4 % Normal 43.0-75.0 [facility] Comment on above: Performed By: #### C BC #### [facility] [address] [place] [address] Dr. Alejandro Schuler Platelet mean volume (Bld) [Entitic vol] 8.8 fL Critically low 9.5-13.5 [facility] Comment on above: Performed By: #### C BC #### [facility] [address] [place] [address] Dr. Alejandro Schuler PLT 245 103/ul Normal 150-450 [facility] Comment on above: Performed By: #### C BC #### [facility] [address] [place] [address] Dr. Alejandro Schuler RBC 4.59 106/ul Normal 4.20-5.40 [facility] Comment on above: Performed By: #### C BC #### [facility] [address] [place] [address] Dr. Alejandro Schuler WBC 8.7 103/ul Normal 4.0-11.0 [facility] Comment on above: Performed By: #### C BC #### [facility] [address] [place] [address] Dr. Alejandro Schuler CULTURE URINEon 03-15-2023 CULTURE URINE Culture Observations : LIGHT GROWTH OF MIXED GENITAL MAK. NO POTENTIAL PATHOGENS SEEN. Normal [facility] Comment on above: Performed By: #### U RCX #### [facility] [address] [place] [address] Dr. Alejandro Schuler ER URINE PROFILEon 3 Bilirubin Ql (U) Negative Normal NEGATIVE [facility] Comment on above: Performed By: #### U MICRO, ERUR, PREGU #### [facility] [address] [place] [address] Dr. Alejandro Schuler Clarity (U) CLEAR Normal CLEAR [facility] Comment on above: Performed By: #### U MICRO, ERUR, PREGU #### [facility] [address] [place] [address] Dr. Alejandro Schuler Color (U) YELLOW Normal YELLOW [facility] Comment on above: Performed By: #### U MICRO, ERUR, PREGU #### [facility] [address] [address] [address] Alejandro Schuler ERUAHD A micrscopic examina tion will be performed if indicated. Normal [facility] Comment on above: Performed By: #### U MICRO, ERUR, PREGU #### [facility] [address] [place] [address] Dr. Alejandro Schuler Glucose Ql (U) Negative Normal NEGATIVE [facility] Comment on above: Performed By: #### U MICRO, ERUR, PREGU #### [facility] [address] [place] [address] Dr. Alejandro Schuler Hemoglobin Ql (U) LARGE Abnormal NEGATIVE [facility] Comment on above: Performed By: #### U MICRO, ERUR, PREGU #### [facility] [address] [place] [address] Dr. Alejandro Schuler Ketones Ql (U) >=80 Abnormal NEGATIVE [facility] Comment on above: Performed By: #### U MICRO, ERUR, PREGU #### [facility] [address] [address] [address] Alejandro Schuler LEUKOCYTES TRACE Abnormal NEGATIVE [facility] Comment on above: Performed By: #### U MICRO, ERUR, PREGU #### [facility] [address] [address] [address] Alejandro Schuler Nitrite Ql (U) Negative Normal NEGATIVE [facility] Comment on above: Performed By: #### U MICRO, ERUR, PREGU #### [facility] [address] [place] [address] Dr. Alejandro Schuler pH (U) 6.0 [pH] Normal 5-9 [facility] Comment on above: Performed By: #### U MICRO, ERUR, PREGU #### [facility] [address] [address] [address] Alejandro Schuler SPEC GRAVITY >=1.030 Abnormal 1.005-<=1.02 5 [facility] Comment on above: Performed By: #### U MICRO, ERUR, PREGU #### [facility] [address] [address] [address] Alejandro Schuler UA PROTEIN TRACE Normal NEGATIVE/ TRACE [facility] Comment on above: Performed By: #### U MICRO, ERUR, PREGU #### [facility] [address] [place] [address] Dr. Alejandro Schuler UR MICRO IND INDICATED Normal [facility] Comment on above: Performed By: #### U MICRO, ERUR, PREGU #### [facility] [address] [place] [address] Dr. Alejandro Schuler Urobilinogen Qn (U) 1.0 {Nannette'U}/dL Normal 0.2 - 1.0 [facility] Comment on above: Performed By: #### U MICRO, ERUR, PREGU #### [facility] [address] [address] [address] Alejandro Schuler PREG QUANT HCGon 03-15-2023 HCG QUANT [id number] mIU/mL Normal [facility] Comment on above: Performed By: #### P REGQNT #### [facility] [address] [place] [address] Dr. Alejandro Schuler HCG RANGE SEE BELOW Normal [facility] Comment on above: Result Comment: 5-50 0.2-1 WEEK 50-500 1-2 WEEKS 100-5,000 2-3 WEEKS 500-10,000 3-4 WEEKS 1,000-50,000 4-5 WEEKS 10,000-100,000 5-6 WEEKS 15,000-200,000 6-8 WEEKS 10,000-100,000 2-3 MONTHS Performed By: #### P REGQNT #### [facility] [address] [place] [address] Dr. Alejandro Schuler URon 03-15-2023 , QUAL Positive Abnormal NEGATIVE [facility] Comment on above: Performed By: #### U MICRO, ERUR, PREGU #### [facility] [address] [address] [address] Alejandro Schuler PROF CHEM 8 (BAS METB)on Anion gap [Moles/Vol] 14.7 mmol/L Normal [facility] Comment on above: Performed By: #### B MP #### [facility] [address] [address] [address] Alejandro Schuler Calcium [Mass/Vol] 9.1 mg/dL Normal 8.5-10.1 [facility] Comment on above: Performed By: #### B MP #### [facility] [address] [address] [address] Alejandro Schuler Chloride [Moles/Vol] 101 mmol/L Normal 98-107 [facility] Comment on above: Performed By: #### B MP #### [facility] [address] [address] [address] Alejandro Schuler CO2 [Moles/Vol] 23.8 mmol/L Normal 21.0-32.0 [facility] Comment on above: Performed By: #### B MP #### [facility] [address] [address] [address] Alejandro Schuler Creatinine [Mass/Vol] 0.56 mg/dL Normal 0.55-1.02 [facility] Comment on above: Performed By: #### B MP #### [facility] [address] [address] [address] Alejandro Schuler EGFR-AF DUTCH >60 Normal >=60 [facility] Comment on above: Performed By: #### B MP #### [facility] [address] [address] [address] Alejandro Schuler EGFR-NON AF DUTCH >60 Normal >=60 [facility] Comment on above: Performed By: #### B MP #### [facility] [address] [place] [address] Dr. Alejandro Schuler Glucose [Mass/Vol] 78 mg/dL Normal 74-106 [facility] Comment on above: Performed By: #### B MP #### [facility] [address] [address] [address] Alejandro Schuler Potassium [Moles/Vol] 3.5 mmol/L Normal 3.5-5.1 [facility] Comment on above: Performed By: #### B MP #### [facility] [address] [address] [address] Alejandro Schuler Sodium [Moles/Vol] 136 mmol/L Normal 136-145 [facility] Comment on above: Performed By: #### B MP #### [facility] [address] [address] [address] Alejandro Schuler Urea nitrogen [Mass/Vol] 8.0 mg/dL Normal 6.4-19.3 [facility] Comment on above: Performed By: #### B MP #### [facility] [address] [place] [address] Dr. Alejandro Schuler Urea nitrogen/Creatini ne [Mass ratio] 14.3 mg/mg Normal [facility] Comment on above: Performed By: #### B MP #### [facility] [address] [place] [address] Dr. Alejandro Schuler URINE MICROSCOPIC ONLYon BACTERIA SMALL Abnormal NONE SEEN [facility] Comment on above: Performed By: #### U MICRO, ERUR, PREGU #### [facility] [address] [place] [address] Dr. Alejandro Schuler Bacteria identified Cx Nom (U) INDICATED Normal [facility] Comment on above: Performed By: #### U MICRO, ERUR, PREGU #### [facility] [address] [address] [address] Alejandro Schuler CAST NONE SEEN Normal NONE SEEN [facility] Comment on above: Performed By: #### U MICRO, ERUR, PREGU #### [facility] [address] [place] [address] Dr. Alejandro Schuler Crystals LM Nom (Urine sed) NONE SEEN Normal NONE SEEN [facility] Comment on above: Performed By: #### U MICRO, ERUR, PREGU #### [facility] [address] [address] [address] Alejandro Schuler Epithelial cells LM Ql (Urine sed) FEW Abnormal NONE SEEN /RARE [facility] Comment on above: Performed By: #### U MICRO, ERUR, PREGU #### [facility] [address] [address] [address] Alejandro Schuler MUCOUS TRACE Abnormal NONE SEEN [facility] Comment on above: Performed By: #### U MICRO, ERUR, PREGU #### [facility] [address] [address] [address] Alejandro Schuler RBC 20-50 Abnormal 0-2 [facility] Comment on above: Performed By: #### U MICRO, ERUR, PREGU #### [facility] [address] [address] [address] Alejandro Schuler WBC 5-10 Abnormal NONE SEEN [facility] Comment on above: Performed By: #### U MICRO, ERUR, PREGU #### [facility] [address] [address] [address] Alejandro Schuler US PREG TVon 03-15-2023 US PREG TV EXAM: US PREG TV HISTORY: Pain COMPARISON: None. TECHNIQUE: Ultrasound obstetrical first trimester. FINDINGS: Single living intrauterine gestation with cardiac rate of 179 bpm. Yolk sac is present. [place]-rump length measurement of 2.23 cm yielding estimated [...] identified. No adnexal masses. Electronically authenticated by: CRAMEN AGUIRRE Date: 2023-03-15 18:03 Normal [facility] Urine Cultureon 06-18-2018 Bacteria identified Cx Nom (U) Urine CultureUrine Culture [id number] URINE-MIDSTREAM CLEAN CATCHURINE-MIDSTREAM CLEAN CATCH No significant growthNo significant growth 06/18/2018 FINAL 06/18/2018 FINAL Normal [facility] Comment on above: Performed By: #### U RCUL ####[facility] [id number] [place] [phone] ED NOTEon 06-17-2018 ED NOTE HNO ID: [id number] Author: Janett Toledo RN Service: (none) Author Type: Registered Nurse Type: ED Notes Filed: 06/16/2018 10:46 PM Note Text: Patient tolerated po fluids- pain 12/29- discharge instructions given- father verbalized understanding Normal [facility] ED PROV NOTEon 06-17-2018 Protein mass conc HNO ID: [id number] thor: RORY Schulteervice: Emergency MedicineAuthor Type: PhysicianType: ED Provider NotesFiled: 06/17/2018 5:11 AMNote Text:ED Provider NotePatient Name: Carole Moore AlvarezerMRN: [id number] DATE: 06/16/18HistoryPatient presents with:Abdominal Pain: L sideHistory [...] of disposition: stableSIGNATURE: Bruce Steel MD06/17/18 0511 [facility] ED NOTEon 06-16-2018 ED NOTE HNO ID: [id number] thor: Janett Toledo RNService: (none)Author Type: Registered NurseType: ED NotesFiled: 06/16/2018 9:08 PMNote Text: C/o pain to left side of umbilicus- onset 40 minutes ago- nausea withvomiting every morning for the past 3 days Normal [facility] ED NOTE HNO ID: [id number] thor: Era Rollins, RNService: (none)Author Type: Registered NurseType: ED NotesFiled: 06/16/2018 8:53 PMNote Text:Pt presents to ED for L side abd pain that started about 20 min BOX LINER. Ptdenies any nausea or vomiting. Dad states she has been sick the pastcouple of mornings. Normal [facility] HCG, Urine qualon 06-16-2018 HCG.beta subunit ( test) Ql (U) Negative Normal Negative [facility] Comment on above: Performed By: #### U HCGQL ####[facility] [id number] [place], [place] [phone] Urinalysison 06-16-2018 Bilirubin Negative Normal Negative [facility] Comment on above: Performed By: #### U A ####[facility] [id number] [place], [place] [phone] Clarity Nom (U) Clear Normal Clear [facility] Comment on above: Performed By: #### U A ####[facility] [id number] [place], [place] [phone] Color Nom (U) Yellow Normal Yellow [facility] Comment on above: Performed By: #### U A ####[facility] Yff95728 [place], [place] [phone] Epithelial Cells Few Normal [facility] Comment on above: Result Comment: Squa mous Epithelial CellsFewTransitional Epithelial Cells Performed By: #### U A ####[facility] Tws96712 [place], [place] [phone] Glucose Negative Normal Negative [facility] Comment on above: Performed By: #### U A ####[facility] Stb67333 [place], [place] [phone] Hemoglobin/Blood Moderate Critically abnormal Negative [facility] Comment on above: Performed By: #### U A ####[facility] Zwq47629 [place], [place] [phone] INR Coag RelTime (Bld) 0-3 Normal 0-3 [facility] Comment on above: Performed By: #### U A ####[facility] [id number] [place], [place] [phone] Ketone Negative Normal Negative [facility] Comment on above: Performed By: #### U A ####[facility] [id number] [place], [place] [phone] Leukest Negative Normal Negative [facility] Comment on above: Performed By: #### U A ####[facility] Ikl49546 [place], [place] [phone] Nitrites Negative Normal Negative [facility] Comment on above: Performed By: #### U A ####[facility] Uhc69917 [place], [place] [phone] pH Test strip (U) 6.0 [pH] Normal 5-7 [facility] Comment on above: Performed By: #### U A ####[facility] Fjy37080 [place], [place] [phone] Protein mass conc Negative Normal Negative [facility] Comment on above: Performed By: #### U A ####[facility] Xgi75250 [place], [place] [phone] Urine Pito Comment Moderate Normal [facility] Comment on above: Result Comment: MUCO US Performed By: #### U A ####[facility] Tyl05527 [address] [place], [place] [phone] Urine Spec [place] 1.011 Normal 1.005-1.030 [facility] Comment on above: Performed By: #### U A ####[facility] Xlq40093 [place] [phone] Urobilinogen <2.0 Normal 0.0-1.0 [facility] Comment on above: Performed By: #### U A ####[facility] Pcz98730 [facility], [place] [phone] WBC 0-5 Normal 0-5 [facility] Comment on above: Performed By: #### U A ####[facility] Uth15855 [facility], [place] [phone] Vital Signs Date Time Vital Sign Value Performing Clinician [facility] 03-18-2025 15:01-0400 Body mass index (BMI) [Ratio] 27.4 kg/m2 Dagmar Facundo DO Work Phone: [facility] 03-18-2025 15:01-0400 Body weight 67.95 kg Dagmar Facundo DO Work Phone: [facility] 03-18-2025 15:01-0400 Diastolic blood pressure 68 mm[Hg] Dagmar Facundo DO Work Phone: [facility] 03-18-2025 15:01-0400 Systolic blood pressure 120 mm[Hg] Dagmar Facundo DO Work Phone: [facility] 03-10-2025 13:30-0400 Body mass index (BMI) [Ratio] 27.44 kg/m2 Natty MEHTA Work Phone: [facility] 03-10-2025 13:30-0400 Body weight 68.04 kg Natty MEHTA Work Phone: [facility] 03-10-2025 13:30-0400 Diastolic blood pressure 70 mm[Hg] Natty Lili PA Work Phone: [facility] 03-10-2025 13:30-0400 Systolic blood pressure 106 mm[Hg] Natty Odin PA Work Phone: [facility] 02-11-2025 14:03-0400 Body mass index (BMI) [Ratio] 26.89 kg/m2 Dagmar Facundo DO Work Phone: [facility] 02-11-2025 14:03-0400 Body weight 66.68 kg Dagmar Facundo DO Work Phone: [facility] 02-11-2025 14:03-0400 Diastolic blood pressure 70 mm[Hg] Dagmar Facundo DO Work Phone: [facility] 02-11-2025 14:03-0400 Systolic blood pressure 108 mm[Hg] Dagmar Facundo DO Work Phone: [facility] 01-28-2025 09:02-0400 Body mass index (BMI) [Ratio] 27.4 kg/m2 Natty Lili PA Work Phone: [facility] 01-28-2025 09:02-0400 Body weight 67.95 kg Natty Odin PA Work Phone: [facility] 01-28-2025 09:02-0400 Diastolic blood pressure 66 mm[Hg] Natty Lili PA Work Phone: [facility] 01-28-2025 09:02-0400 Systolic blood pressure 108 mm[Hg] Natty Lili PA Work Phone: [facility] 12-15-2024 09:07-0500 Body mass index (BMI) [Ratio] 25.81 kg/m2 Natty Lili PA Work Phone: [facility] 12-15-2024 09:07-0500 Body weight 64.01 kg Natty Lili PA Work Phone: [facility] 12-15-2024 09:07-0500 Diastolic blood pressure 70 mm[Hg] Natty Lili PA Work Phone: [facility] 12-15-2024 09:07-0500 Systolic blood pressure 120 mm[Hg] Natty Lin PA Work Phone: [facility] 11-13-2024 15:17-0500 Body mass index (BMI) [Ratio] 25.42 kg/m2 Natty Lin PA Work Phone: [facility] 11-13-2024 15:17-0500 Body weight 63.05 kg Natty Lin PA Work Phone: [facility] 11-13-2024 15:17-0500 Diastolic blood pressure 70 mm[Hg] Natty MEHTA Work Phone: [facility] 11-13-2024 15:17-0500 Systolic blood pressure 108 mm[Hg] Natty MEHTA Work Phone: [facility] 09-11-2024 13:48-0500 Body mass index (BMI) [Ratio] 26.12 kg/m2 Noms Nurse [facility] 09-11-2024 13:48-0500 Body weight 64.77 kg Noms Nurse [facility] Healthcare Encounters Encounter Date Encounter Type Care Provider Facility Start: 03-18-2025 End: 03-18-2025 Office outpatient visit 15 minutes Dagmar Facundo DO Work Phone: [facility] Comment on above: 36 weeks gestation o f ; Third trimester Start: 03-18-2025 End: 03-18-2025 Bamboo flowsheet Dagmar Facundo DO Work Phone: [facility] Start: 03-18-2025 End: 03-18-2025 Bamboo flowsheet Dagmar Facundo DO Work Phone: [facility] Start: 03-10-2025 End: 03-10-2025 Bamboo flowsheet Natty MEHTA Work Phone: [facility] Start: 03-10-2025 End: 03-10-2025 Bamboo flowsheet Natty EMHTA Work Phone: [facility] Start: 03-10-2025 End: 03-10-2025 ambulatory NATTY LIN Not Available Start: 03-10-2025 End: 03-10-2025 Office outpatient visit 15 minutes Natty MEHTA Work Phone: [facility] Comment on above: Third trimester preg dante; 34 weeks gestation of Start: 02-17-2025 End: 02-17-2025 Clinisync Result Encounter Dagmar Facundo DO Work Phone: [facility] External Department Unsolicited Start: 02-17-2025 End: 02-17-2025 Clinisync Result Encounter Dagmar Facundo DO Work Phone: [facility] Unsolicited Start: 02-11-2025 End: 02-11-2025 Bamboo flowsheet Dagmar Facundo DO Work Phone: [facility] Start: 02-11-2025 End: 02-11-2025 Bamboo flowsheet Dagmar Facundo DO Work Phone: [facility] Start: 02-11-2025 End: 02-11-2025 ambulatory DAGMAR FACUNDO Not Available Start: 02-11-2025 End: 02-11-2025 Office outpatient visit 15 minutes Dagmar Facundo DO Work Phone: [facility] Comment on above: Third trimester preg dante; 31 weeks gestation of ; Diabetes mellitus screening Start: 02-05-2025 End: 02-05-2025 ambulatory NATTY LIN Not Available Start: 01-28-2025 End: 01-28-2025 Bamboo flowsheet Natty MEHTA Work Phone: [facility] Start: 01-28-2025 End: 01-28-2025 Bamboo flowsheet Natty MEHTA Work Phone: [facility] Start: 01-28-2025 End: 01-28-2025 Office outpatient visit 15 minutes Natty MEHTA Work Phone: [facility] Comment on above: size inconsist ent with dates (Primary Dx); Second trimester ; 28 weeks gestation of Start: 01-28-2025 End: 01-28-2025 ambulatory NATTY LIN Not Available Start: 01-12-2025 End: 01-12-2025 ambulatory DAGMAR LOREDO Not Available Start: 12-15-2024 End: 12-15-2024 Bamboo flowsheet Natty MEHTA Work Phone: [facility] Start: 12-15-2024 End: 12-15-2024 Bamboo flowsheet Natty MEHTA Work Phone: [facility] Start: 12-15-2024 End: 12-15-2024 Periodic preventive med est patient 18-39 yrs Natty MEHTA Work Phone: [facility] Comment on above: 22 weeks gestation o f ; Second trimester ; Diabetes mellitus screening Start: 12-15-2024 End: 12-15-2024 ambulatory NATTY LIN Not Available Start: 11-13-2024 End: 11-13-2024 Patient encounter procedure Natty MEHTA Work Phone: [facility] Start: 11-13-2024 End: 11-13-2024 Periodic preventive med est patient 18-39 yrs Natty MEHTA Work Phone: [facility] Comment on above: Screening, , for anatomic survey; Well woman exam with routine gynecological exam; Second trimester ; 18 weeks gestation of ; Vaginal discharge; STD exposure Start: 11-13-2024 End: 11-13-2024 ambulatory NATTY LIN Not Available Start: 11-13-2024 End: 11-13-2024 Bamboo flowsheet Natty MEHTA Work Phone: [facility] Start: 11-13-2024 End: 11-19-2024 Bamboo flowsheet Natty MEHTA Work Phone: [facility] Start: 11-13-2024 End: 11-19-2024 Clinisync Result Encounter Natty MEHTA Work Phone: [facility] External Department Unsolicited Start: 11-13-2024 End: 11-14-2024 External Result Encounter Natty MEHTA Work Phone: [facility] Unsolicited Start: 10-06-2024 End: 10-06-2024 ambulatory DAGMAR FACUNDO [...] 04-14-2024 Emergency department patient visit [facility] Start: 03-15-2023 End: 03-15-2023 ambulatory STEPHANIE Jena RILEY Facility: Start: 06-16-2018 End: 06-17-2018 Emergency department patient visit JULYWHIT COLEMAN [facility] Procedures Date Procedure Procedure Detail Performing Clinician Start: 03-18-2025 Urnls dip stick/tabl et rgnt non-auto w/o micrscp Dagmar Facundo DO Work Phone: Start: 03-10-2025 Urnls dip stick/tabl et rgnt non-auto w/o micrscp Natty Lin PA Work Phone: Start: 02-17-2025 MLR HEMOGLOBIN A1C Core y Facundo DO Work Phone: Start: 02-11-2025 Urnls dip stick/tabl et rgnt non-auto w/o micrscp Dagmar Facundo DO Work Phone: Start: 12-15-2024 Urnls dip stick/tabl et rgnt non-auto w/o micrscp Natty MEHTA Work Phone: Start: 11-13-2024 RECURRENT VAGINITIS (HTRX) Natty MEHTA Work Phone: Start: 11-13-2024 IGP,APTIMA HPV,AGE GDLN Natty MEHTA Work Phone: Start: 10-06-2024 BOX TEST Dagmar Fazi o DO Work Phone: Start: 10-06-2024 Urnls dip stick/tabl et rgnt non-auto w/o micrscp Dagmar Facundo DO Work Phone: Start: 09-11-2024 Urnls dip stick/tabl et rgnt non-auto w/o micrscp Dagmar Facundo DO Work Phone: Plan of Treatment Date Care Activity Detail Author Start: 06-22-2025 Influenza vaccination Influenz a Vaccine (Season Ended) [facility] Start: 03-25-2025 End: 03-25-2025 Patient encounter procedure 03/25/2025 3:00 PM EDT Routine [facility] [address] [facility] [phone] Dagmar Loredo, DO [address] [place] [address] [facility] Start: 03-18-2025 End: 03-18-2025 Patient encounter procedure 03/18/2025 2:50 PM EDT Routine [facility] [address] [facility] [phone] Dagmar Loredo, DO [address] [place], [place] [phone] Arrived [facility] Comment on above: Arrived Start: 03-18-2025 End: 03-18-2026 CULTURE, GROUP B STREP WITH SUSCEPTIBLITY CULTURE, GROUP B STREP WITH SUSCEPTIBLITY Lab Routine Third trimester Expected: 03/18/2025, Expires: 03/18/2026 [facility] Work Phone: Comment on above: Expected: 03/18/2025 , Expires: 03/18/2026 Start: 02-25-2025 End: 02-25-2025 Patient encounter procedure 02/25/2025 3:20 PM EDT Routine [facility] [address] [place] [phone] Natty Lin PA [address] [place], [place] [phone] [facility] Start: 02-11-2025 End: 02-11-2025 Patient encounter procedure 02/11/2025 1:40 PM EDT Routine [facility] [address] [place] [phone] Dagmar Loredo DO [address] [place], [place] [phone] [facility] Start: 02-05-2025 End: 02-05-2025 Professional / ancillary services management 02/05/2025 3:00 PM EDT Ancillary Procedure [facility] [address] [place] [phone] [facility] Start: 01-28-2025 End: 05-30-2025 US for US OB follow up transabdominal approach Imaging Routine size inconsistent with dates Expected: 01/28/2025, Expires: 05/30/2025 [facility] Work Phone: Comment on above: Expected: 01/28/2025 , Expires: 05/30/2025 Start: 01-28-2025 End: 01-28-2025 Patient encounter procedure 01/28/2025 9:00 AM EDT Routine [facility] [address] [place] [phone] Natty Lin PA [address] [place], [place] [phone] Arrived [facility] Comment on above: Arrived Start: 01-12-2025 End: 01-12-2025 Patient encounter procedure 01/12/2025 9:50 AM EDT Routine [facility] [address] [place] [phone] Dagmar Loredo DO [address] [place] [address] [facility] Start: 12-15-2024 End: 12-15-2025 CBC panel - Blood by Automated count CBC Lab Routine Diabetes mellitus screening Expected: 12/15/2024 (Approximate), Expires: 12/15/2025 [facility] Work Phone: Comment on above: Expected: 12/15/2024 (Approximate), Expires: 12/15/2025 Start: 12-15-2024 End: 12-15-2025 Measurement of glucose 1 hour after glucose challenge for glucose tolerance test Glucose tolerance, 1 hour Lab Routine Diabetes mellitus screening Expected: 12/15/2024 (Approximate), Expires: 12/15/2025 [facility] Comment on above: Expected: 12/15/2024 (Approximate), Expires: 12/15/2025 Start: 12-15-2024 End: 12-15-2024 Patient encounter procedure 12/15/2024 10:20 AM EST Routine [facility] [address] [place] [id number] Natty Lin, PA [address] [place], [place] [id number] Arrived [facility] Comment on above: Arrived Start: 12-11-2024 End: 12-11-2024 Patient encounter procedure 12/11/2024 10:50 AM EST Routine [facility] [address] [place] [address] Dagmar Loredo, DO [address] [place] [address] [facility] Start: 11-13-2024 End: 11-13-2024 Patient encounter procedure 11/13/2024 2:50 PM EST Routine [facility] [address] [place] [id number] Natty Lin PA [address] [place] [address] Arrived [facility] Comment on above: Arrived Start: 11-13-2024 End: 11-13-2025 Alpha fetoprotein, maternal Alpha fetoprotein, maternal Lab Routine Second trimester 18 weeks gestation of Expected: 11/13/2024 (Approximate), Expires: 11/13/2025 [facility] Comment on above: Expected: 11/13/2024 (Approximate), Expires: 11/13/2025 Start: 11-13-2024 End: 11-13-2025 US for US OB 14+ weeks anatomy scan Imaging Routine Screening, , for anatomic survey Expected: 11/13/2024, Expires: 11/13/2025 [facility] Comment on above: Expected: 11/13/2024 , Expires: 11/13/2025 Start: 10-06-2024 End: 10-06-2024 Patient encounter procedure 10/06/2024 11:10 AM EST Routine [facility] [address] [place] [phone] Dagmar Loredo, DO [address] [place] [address] [facility] Start: 09-11-2024 End: 09-11-2025 ABO/Rh ABO/Rh Lab Routine Missed menses , unspecified gestational age Expected: 09/11/2024 (Approximate), Expires: 09/11/2025 [facility] Comment on above: Expected: 09/11/2024 (Approximate), Expires: 09/11/2025 Start: 09-11-2024 End: 09-11-2025 Blood type and Indirect antibody screen panel - Blood Type and screen Lab Routine Missed menses , unspecified gestational age Expected: 09/11/2024 (Approximate), Expires: 09/11/2025 [facility] Work Phone: Comment on above: Expected: 09/11/2024 (Approximate), Expires: 09/11/2025 Start: 09-11-2024 End: 09-11-2025 Drugs of abuse panel - Urine by Screen method Rapid drug screen, urine Lab Routine , unspecified gestational age Encounter for supervision of normal first in first trimester Expected: 09/11/2024 (Approximate), Expires: 09/11/2025 [facility] Comment on above: Expected: 09/11/2024 (Approximate), Expires: 09/11/2025 Start: 09-11-2024 End: 09-11-2025 US Pelvis transvaginal US OB transvaginal Imaging Routine Missed menses Expected: 09/11/2024 (Approximate), Expires: 09/11/2025 [facility] Comment on above: Expected: 09/11/2024 (Approximate), Expires: 09/11/2025 Start: 06-22-2024 Influenza vaccination Influenza Vacc ine (#1) [facility] Bacteria identified in Urine by Culture Urine culture Microbiology Routine Missed menses Ordered: 09/11/2024 [facility] Comment on above: Ordered: 09/11/2024 CBC W Auto Different ial panel - Blood CBC and differential Lab Routine Missed menses , unspecified gestational age Ordered: 09/11/2024 [facility] Comment on above: Ordered: 09/11/2024 CHLAMYDIA TRACHOMATI S (GENITO/STI) CHLAMYDIA TRACHOMATIS (GENITO/STI) Lab Routine STD exposure Ordered: 11/13/2024 [facility] Comment on above: Ordered: 11/13/2024 Cytology Cervical or vaginal smear or scraping study Pap Smear Pathology and Cytology Routine Well woman exam with routine gynecological exam Ordered: 11/13/2024 [facility] Comment on above: Ordered: 11/13/2024 Hemoglobin A1c/Hemoglobin.total in Blood Hemoglobin A1c Lab Routine Missed menses , unspecified gestational age Ordered: 09/11/2024 [facility] Comment on above: Ordered: 09/11/2024 Hemoglobin A1c/Hemoglobin.total in Blood Hemoglobin A1c Lab Routine Diabetes mellitus screening Ordered: 02/11/2025 [facility] Work Phone: Comment on above: Ordered: 02/11/2025 Hepatitis B virus surface Ag [Presence] in Serum or Plasma by Immunoassay Hepatitis B surface antigen Lab Routine Missed menses , unspecified gestational age Ordered: 09/11/2024 [facility] Comment on above: Ordered: 09/11/2024 Hepatitis C virus Ab [Presence] in Serum or Plasma by Immunoassay Hepatitis C antibody Lab Routine Missed menses , unspecified gestational age Ordered: 09/11/2024 [facility] Comment on above: Ordered: 09/11/2024 HIV-1/HIV-2 antigen/antibody combination immunoassay HIV-1 and HIV-2 antibodies Lab Routine Missed menses , unspecified gestational age Ordered: 09/11/2024 [facility] Comment on above: Ordered: 09/11/2024 Neisseria gonorrhoea e DNA [Presence] in Unspecified specimen by KRISTI with probe detection Neisseria gonorrhea DNA probe, direct Lab Routine STD exposure Ordered: 11/13/2024 [facility] Comment on above: Ordered: 11/13/2024 Reagin Ab [Presence] in Serum by RPR RPR Lab Routine Missed menses , unspecified gestational age Ordered: 09/11/2024 [facility] Comment on above: Ordered: 09/11/2024 Rubella antibody, IgG Rubella an tibody, IgG Lab Routine Missed menses , unspecified gestational age Ordered: 09/11/2024 [facility] Comment on above: Ordered: 09/11/2024 SURESWAB(R) ADVANCED VAGINITIS PLUS, TMA SURESWAB(R) ADVANCED VAGINITIS PLUS, TMA Pathology and Cytology Routine Vaginal discharge Ordered: 11/13/2024 [facility] Work Phone: Comment on above: Ordered: 11/13/2024 Payers Date Payer Category Payer Medicaid (Managed Care) [employer] [id number] 2003 Unknown [id number] 593 2003 Unknown [id number]. 1286 2003 Unknown [id number] [id number]. 1259 2003 Unknown [id number] [id number]. 1259 2003 Unknown [id number] [id number]. 1259 2003 Unknown [id number] [id number]. 1259 2003 Unknown [id number] [id number]. 1259 2003 Unknown [id number] [id number]. 1259 2003 Unknown [id number] [id number]. 1259 2003 Unknown [id number] [id number]. 1259 2003 Unknown [id number] [id number]. 1259 1959 Unknown [id number] Social History Date Type [facility]ail [facility] Start: 07-23-2024 [facility] Start: 2003 Sex assigned at Not on file [facility] Gender identity Not on file [facility] Clinical Notes 09-11-2024 to 03-18-2025 Eduardapaul Ugarte NP - 03/18/2025 2:50 PM SANTOSleroy JANINE Lin - 03/10/2025 1:00 PM Arianne Zapien LPN - 02/11/2025 1:40 PM JANINE Fraser - 01/28/2025 9:00 AM JANINE Fraser - 11/13/2024 2:50 PM EST Note Date & Type Note Facility 03-18-2025 History of Presen t illness Narrative Reason for Appointment: Patient ID: Carole Thorpe is a 19 y.o. female who presents for No chief complaint on file. Patient presents today for Return OB appointment. MEDICATIONS No current outpatient medications ALLERGIES No Known Allergies PROBLEMS Active Ambulatory Problems Diagnosis Date Noted No Active Ambulatory Problems Resolved Ambulatory Problems Diagnosis Date Noted No Resolved Ambulatory Problems No Additional Past Medical History HISTORY PAST MEDICAL HISTORY SOCIAL HISTORY History reviewed. No pertinent past medical history. Social History Tobacco Use Smoking status: Not on file Smokeless tobacco: Not on file Vaping Use Vaping status: Every Day Substances: Nicotine Substance Use Topics Alcohol use: Not on file Drug use: Not on file FAMILY HISTORY No family history on file. SURGICAL HISTORY History reviewed. No pertinent surgical history. REVIEW OF SYSTEMS Review of Systems: Review of Systems Constitutional: Negative. HENT: Negative. Eyes: Negative. Respiratory: Negative. Cardiovascular: Negative. Gastrointestinal: Negative. Genitourinary: Negative. Musculoskeletal: Negative. Skin: Negative. Neurological: Negative. All other systems reviewed and are negative. Hematological: Negative. Endocrine: Negative. Allergic/Immunologic: Negative. OBJECTIVE Objective: Physical Exam Constitutional: Appearance: Normal [...] nursing note reviewed. Exam conducted with a pre school manager present. Vitals: Estimated body mass index is 27.4 kg/m as calculated from the following: Height as of 07/31/23: 5' 2 . Weight as of this encounter: 149 lb 12.8 oz. BP: 120/68 Patient's last menstrual period was 07/03/2024. ASSESSMENT & PLAN ICD-10-CM 1. 36 weeks gestation of Z3A.36 POCT urinalysis dipstick manually resulted 2. Third trimester Z34.93 POCT urinalysis dipstick manually resulted CULTURE, GROUP B STREP WITH SUSCEPTIBLITY CULTURE, GROUP B STREP WITH SUSCEPTIBLITY Return OB: Patient presents today for a routine obstetrics appointment. Patient is currently 36w0d . Patient states she is doing well but has complaints of being tired due to current . Patient has verbalizes frequent movement. labor precautions was discussed/given and patient was instructed to perform kick counts three times a day. Orders Placed This Encounter Procedures CULTURE, GROUP B STREP WITH SUSCEPTIBLITY POCT urinalysis dipstick manually resulted Follow Up: Patient is to return to office in 1 week for routine OB appointment. Documented by Eduarda Ugarte NP on behalf of: Dagmar Loredo DO documented in this encounter [facility] 03-10-2025 History of Presen t illness Narrative Reason for Appointment: Patient ID: Carole Thorpe is a 19 y.o. female who presents for Routine Visit Patient presents today for Return OB appointment. MEDICATIONS No current outpatient medications ALLERGIES No Known Allergies PROBLEMS Active Ambulatory [...] No family history on file. SURGICAL HISTORY History reviewed. No pertinent surgical history. REVIEW OF SYSTEMS Review of Systems: Review of Systems Constitutional: Negative. HENT: Negative. Eyes: Negative. Respiratory: Negative. Cardiovascular: Negative. Gastrointestinal: Negative. Genitourinary: Negative. Musculoskeletal: Negative. Skin: Negative. Neurological: Negative. All other systems reviewed and are negative. Hematological: Negative. Endocrine: Negative. Allergic/Immunologic: Negative. OBJECTIVE Objective: Physical Exam Constitutional: Appearance: Normal appearance. She is normal weight. HENT: Head: Normocephalic. Cardiovascular: Rate and Rhythm: Normal rate. Pulses: Normal pulses. Pulmonary: Effort: Pulmonary effort is normal. Breath sounds: Normal breath sounds. Abdominal: Palpations: Abdomen is soft. Musculoskeletal: General: Normal range of motion. Neurological: General: No focal deficit present. Mental Status: She is alert and oriented to person, place, and time. Psychiatric: Mood and Affect: Mood normal. Behavior: Behavior normal. Thought Content: Thought content normal. Judgment: Judgment normal. Vitals and nursing note reviewed. Vitals: Estimated body mass index is 26.89 kg/m as calculated from the following: Height as of 07/31/23: 5' 2 . Weight as of 02/11/25: 147 lb. BP: Patient's last menstrual period was 07/03/2024. ASSESSMENT & PLAN ICD-10-CM 1. Third trimester Z34.93 POCT urinalysis dipstick manually resulted 2. 34 weeks gestation of Z3A.34 Return OB: Patient presents today for a routine obstetrics appointment. Patient is currently 34w6d . Patient states she is doing well but has complaints of being tired due to current . Patient has verbalizes frequent movement. labor precautions was discussed/given and patient was instructed to perform kick counts three times a day. Orders Placed This Encounter Procedures POCT urinalysis dipstick manually resulted Follow Up: Patient is to return to office in 2 week for routine OB appointment. Documented by Shanell Casey MA on behalf of: JANINE Reynoso documented in this encounter [facility] 02-11-2025 History of Presen t illness Narrative Reason for Appointment: Patient ID: Carole Thorpe is a 19 y.o. female who presents for Routine Visit Patient presents today for Return OB appointment. MEDICATIONS No current outpatient medications ALLERGIES No Known Allergies PROBLEMS Active Ambulatory [...] No family history on file. SURGICAL HISTORY History reviewed. No pertinent surgical history. REVIEW OF SYSTEMS Review of Systems: Review of Systems Constitutional: Negative. HENT: Negative. Eyes: Negative. Respiratory: Negative. Cardiovascular: Negative. Gastrointestinal: Negative. Genitourinary: Negative. Musculoskeletal: Negative. Skin: Negative. Neurological: Negative. All other systems reviewed and are negative. Hematological: Negative. Endocrine: Negative. Allergic/Immunologic: Negative. OBJECTIVE Objective: Physical Exam Constitutional: Appearance: Normal [...] nursing note reviewed. Exam conducted with a pre school manager present. Vitals: Estimated body mass index is 26.89 kg/m as calculated from the following: Height as of 07/31/23: 5' 2 . Weight as of this encounter: 147 lb. BP: 108/70 Patient's last menstrual period was 07/03/2024. ASSESSMENT & PLAN ICD-10-CM 1. Third trimester Z34.93 POCT urinalysis dipstick manually resulted 2. 31 weeks gestation of Z3A.31 3. Diabetes mellitus screening Z13.1 Hemoglobin A1c CANCELED: CBC CANCELED: Glucose tolerance, 1 hour CANCELED: CBC CANCELED: Glucose tolerance, 1 hour Return OB: Patient presents today for a routine obstetrics appointment. Patient is currently 31w0d . Patient states she is doing well but has complaints of being tired due to current . Patient has verbalizes frequent movement. labor precautions was discussed/given and patient was instructed to perform kick counts three times a day. Orders Placed This Encounter Procedures Hemoglobin A1c POCT urinalysis dipstick manually resulted Follow Up: Patient is to return to office in 2 week for routine OB appointment. Documented by Bess Zapien LPN on behalf of: Dagmar Loredo DO documented in this encounter [facility] 01-28-2025 History of Presen t illness Narrative Reason for Appointment: Patient ID: Carole Thorpe is a 19 y.o. female who presents for Routine Visit Patient presents today for Return OB appointment. MEDICATIONS No current outpatient medications ALLERGIES No Known Allergies PROBLEMS Active Ambulatory Problems Diagnosis Date Noted No Active Ambulatory Problems Resolved Ambulatory Problems Diagnosis Date Noted No Resolved Ambulatory Problems No Additional Past Medical History HISTORY PAST MEDICAL HISTORY SOCIAL HISTORY History reviewed. No pertinent past medical history. Social History Tobacco Use Smoking status: Not on file Smokeless tobacco: Not on file Vaping Use Vaping status: Every Day Substances: Nicotine Substance Use Topics Alcohol use: Not on file Drug use: Not on file FAMILY HISTORY No family history on file. SURGICAL HISTORY History reviewed. No pertinent surgical history. REVIEW OF SYSTEMS Review of Systems: Review of Systems Constitutional: Negative. HENT: Negative. Eyes: Negative. Respiratory: Negative. Cardiovascular: Negative. Gastrointestinal: Negative. Genitourinary: Negative. Musculoskeletal: Negative. Skin: Negative. Neurological: Negative. All other systems reviewed and are negative. Hematological: Negative. Endocrine: Negative. Allergic/Immunologic: Negative. OBJECTIVE Objective: Physical Exam Constitutional: Appearance: Normal appearance. She is normal weight. HENT: Head: Normocephalic. Cardiovascular: Rate and Rhythm: Normal rate. Pulses: Normal pulses. Pulmonary: Effort: Pulmonary effort is normal. Breath sounds: Normal breath sounds. Abdominal: Palpations: Abdomen is soft. Musculoskeletal: General: Normal range of motion. Neurological: General: No focal deficit present. Mental Status: She is alert and oriented to person, place, and time. Psychiatric: Mood and Affect: Mood normal. Behavior: Behavior normal. Thought Content: Thought content normal. Judgment: Judgment normal. Vitals and nursing note reviewed. Vitals: Estimated body mass index is 27.4 kg/m as calculated from the following: Height as of 07/31/23: 5' 2 . Weight as of this encounter: 149 lb 12.8 oz. BP: 108/66 Patient's last menstrual period was 07/03/2024. ASSESSMENT & PLAN ICD-10-CM 1. size inconsistent with dates O26.849 US OB follow up transabdominal approach 2. Second trimester Z34.92 3. 28 weeks gestation of Z3A.28 Return OB: Patient presents today for a routine obstetrics appointment. Patient is currently 29w0d . Patient states she is doing well but has complaints of being tired due to current . Patient has verbalizes frequent movement. labor precautions was discussed/given and patient was instructed to perform kick counts three times a day. Orders Placed This Encounter Procedures US OB follow up transabdominal approach Follow Up: Patient is to return to office in 2 week for routine OB appointment. Documented by JANINE Reynoso on behalf of: JANINE Reynoso documented in this encounter [facility] 11-13-2024 History of Presen t illness Narrative Reason for Appointment: Patient ID: Carole Thorpe is a 19 y.o. female who presents for Routine Visit, Well Women Visit, and STI Screening Patient presents today for Return OB appointment. [...] SYSTEMS Review of Systems: Review of Systems Constitutional: Negative. HENT: Negative. Eyes: Negative. Respiratory: Negative. Cardiovascular: Negative. Gastrointestinal: Negative. Genitourinary: Negative. Musculoskeletal: Negative. Skin: Negative. Neurological: Negative. All other systems reviewed and are negative. Hematological: Negative. Endocrine: Negative. Allergic/Immunologic: Negative. OBJECTIVE Objective: Physical Exam Constitutional: Appearance: Normal appearance. Genitourinary: Right Adnexa: not tender and no mass present. Left Adnexa: not tender and no mass present. No cervical discharge. Breasts: Breasts are soft. Right: Normal. Left: Normal. HENT: Head: Normocephalic. Nose: Nose normal. Mouth/Throat: Mouth: Mucous membranes are moist. Cardiovascular: Rate and Rhythm: Normal rate. Pulmonary: Effort: Pulmonary effort is normal. Abdominal: General: Bowel sounds are normal. Palpations: Abdomen is soft. Musculoskeletal: General: Normal range of motion. Cervical back: Normal range of motion. Neurological: General: No focal deficit present. Mental Status: She is alert. Skin: General: Skin is warm and dry. Psychiatric: Mood and Affect: Mood normal. Vitals and nursing note reviewed. Exam conducted with a pre school manager present. Vitals: Estimated body mass index is 25.42 kg/m as calculated from the following: Height as of 07/31/23: 5' 2 . Weight as of this encounter: 139 lb. BP: 108/70 Patient's last menstrual period was 07/03/2024. ASSESSMENT & PLAN ICD-10-CM 1. Screening, , for anatomic survey Z36.89 US OB 14+ weeks anatomy scan 2. Well woman exam with routine gynecological exam Z01.419 Pap Smear 3. Second trimester Z34.92 Alpha fetoprotein, maternal Alpha fetoprotein, maternal 4. 18 weeks gestation of Z3A.18 Alpha fetoprotein, maternal Alpha fetoprotein, maternal 5. Vaginal discharge N89.8 SURESWAB(R) ADVANCED VAGINITIS PLUS, TMA 6. STD exposure Z20.2 CHLAMYDIA TRACHOMATIS (GENITO/STI) Neisseria gonorrhea DNA probe, direct Return OB/Annual Exam: Patient presents today for an annual exam/routine obstetrics appointment. Patient is currently 18w5d . Patient is doing well and states she has no complaints. Pap/cultures was obtained without difficulty and patient was given msAFP order to have obtained. Orders Placed This Encounter Procedures US OB 14+ weeks anatomy scan CHLAMYDIA TRACHOMATIS (GENITO/STI) Neisseria gonorrhea DNA probe, direct Alpha fetoprotein, maternal Follow Up: Patient is to return to our office in 4 weeks for routine OB appointment Documented by JANINE eRynoso on behalf of: JANINE Reynoso documented in this encounter [facility] 10-06-2024 History of Presen t illness Narrative [...] nursing note reviewed. Exam conducted with a pre school manager present. Vitals: Estimated body mass index is [...] or undercooked meat, and stay away from [facility]. Patient has been consulted regarding any further do's and don'ts of . Patient voiced understanding and all questions and concerns were answered. Patients OB Intake Labs were reprinted and given along with [facility] orders. Orders Placed This Encounter Procedures POCT urinalysis dipstick manually resulted Follow Up: Patient is to return in 4 weeks for routine OB appointment. Documented by Marisol Arellano LPN on behalf of: Dagmar Loredo DO documented in this encounter [facility] 09-11-2024 History of Presen t illness Narrative [...] or undercooked meat, and stay away from [facility]. Patient has also been advised to not [...] in this encounter [facility] Evaluation note Diagnosis Missed menses , unspecified gestational age Encounter for supervision of normal first in first trimester documented [facility] Diagnosis First trimester state, incidental 12 weeks gestation of Nausea and vomiting in Unspecified vomiting of , unspecified as to episode of care [facility] Diagnosis Screening, , for anatomic survey Encounter for anatomic survey Well woman exam with routine gynecological exam Routine gynecological examination Second trimester state, incidental 18 weeks gestation of Vaginal discharge Leukorrhea, not specified as infective STD exposure documented [facility]* Diagnosis 22 weeks gestation of Second trimester state, incidental Diabetes mellitus screening Screening for diabetes mellitus documented [facility] this [facility]* Diagnosis size inconsistent with dates- Primary Second trimester state, incidental 28 weeks gestation of documented [facility]* Diagnosis Third trimester state, incidental 31 weeks gestation of Diabetes mellitus screening Screening for diabetes mellitus documented [facility]* Diagnosis Third trimester state, incidental 34 weeks gestation of documented [facility]* Diagnosis 36 weeks gestation of Third trimester state, incidental [facility]* JANINE Reynoso - 12/15/2024 10:20 AM EST Reason for Appointment: Patient ID: Carole Thorpe is a 19 y.o. female who presents for Routine Visit Patient presents today for Return OB appointment. MEDICATIONS No current outpatient medications ALLERGIES No Known Allergies PROBLEMS Active Ambulatory Problems Diagnosis Date Noted No Active Ambulatory Problems Resolved Ambulatory Problems Diagnosis Date Noted No Resolved Ambulatory Problems No Additional Past Medical History HISTORY PAST MEDICAL HISTORY SOCIAL HISTORY History reviewed. No pertinent past medical history. Social History Tobacco Use Smoking status: Not on file Smokeless tobacco: Not on file Vaping Use Vaping status: Every Day Substances: Nicotine Substance Use Topics Alcohol use: Not on file Drug use: Not on file FAMILY HISTORY No family history on file. SURGICAL HISTORY History reviewed. No pertinent surgical history. REVIEW OF SYSTEMS Review of Systems: Review of Systems Constitutional: Negative. HENT: Negative. Eyes: Negative. Respiratory: Negative. Cardiovascular: Negative. Gastrointestinal: Negative. Genitourinary: Negative. Musculoskeletal: Negative. Skin: Negative. Neurological: Negative. All other systems reviewed and are negative. Hematological: Negative. Endocrine: Negative. Allergic/Immunologic: Negative. OBJECTIVE Objective: Physical Exam Constitutional: Appearance: Normal appearance. She is normal weight. HENT: Head: Normocephalic. Cardiovascular: Rate and Rhythm: Normal rate. Pulses: Normal pulses. Pulmonary: Effort: Pulmonary effort is normal. Breath sounds: Normal breath sounds. Abdominal: Palpations: Abdomen is soft. Musculoskeletal: General: Normal range of motion. Neurological: General: No focal deficit present. Mental Status: She is alert and oriented to person, place, and time. Psychiatric: Mood and Affect: Mood normal. Behavior: Behavior normal. Thought Content: Thought content normal. Judgment: Judgment normal. Vitals and nursing note reviewed. Vitals: Estimated body mass index is 25.81 kg/m as calculated from the following: Height as of 07/31/23: 5' 2 . Weight as of this encounter: 141 lb 1.9 oz. BP: 120/70 Patient's last menstrual period was 07/03/2024. ASSESSMENT & PLAN ICD-10-CM 1. 22 weeks gestation of Z3A.22 POCT urinalysis dipstick manually resulted 2. Second trimester Z34.92 POCT urinalysis dipstick manually resulted 3. Diabetes mellitus screening Z13.1 CBC Glucose tolerance, 1 hour CBC Glucose tolerance, 1 hour Return OB: Patient presents today for a routine obstetrics appointment. Patient is currently 22w5d . Patient states she is doing well but has complaints of being tired due to current . Patient has verbalizes frequent movement. Orders Placed This Encounter Procedures CBC Glucose tolerance, 1 hour POCT urinalysis dipstick manually resulted Follow Up: Patient is to return to office in 4 week for routine OB appointment. Documented by JANINE Reynoso on behalf of: JANINE Reynoso [facility] Summary Purpose Family History No Family History Records FoundNo Family History Records FoundNo Family History Records FoundNo Family History Records Found Advance Directives No Advanced Directives Records FoundNo Advanced Directives Records FoundNo Advanced Directives Records FoundNo Advanced Directives Records Found Additional Source Comments INFORMATION SOURCE (unrecogn ized section and content) DATE CREATED AUTHOR 06/21/2018 [facility] DATE CREATED AUTHOR AUTHOR'S ORGANIZ ATION 03/30/2023 [facility] DATE CREATED AUTHOR AUTHOR'S ORGANIZ ATION 04/14/2024 [facility] DATE CREATED AUTHOR AUTHOR'S ORGANIZ ATION 03/11/2025 [facility] EPIC Reason for Visit (unrecogniz ed section and content) Reason Comments Amenorrhea Reason Comments Routine Visit Reason Comments Routine Visit Well Women Visit STI Screening Care Teams (unrecognized sec tion and content) Blueprint Assembler Relationship Specialty Start Date End Date Natty Lin PA [address] [place] [address] [place] [address] PCP - [facility] 01/21/24 Blueprint Assembler Relationship Specialty Start Date End Date Natty Lin PA [address] [place] [address] [place] [address] PCP - [facility] 01/21/24 Blueprint Assembler Relationship Specialty Start Date End Date Natty Lin PA [address] [place] [address] [place] [address] PCP - [facility] 01/21/24 Blueprint Assembler Relationship Specialty Start Date End Date Natty Lin PA [address] [place] [address] [place] [address] PCP - [facility] 01/21/24 Blueprint Assembler Relationship Specialty Start Date End Date Natty Lin PA [address] [place] [address] [facility] 01/21/24 Blueprint Assembler Relationship Specialty Start Date End Date Natty Lin PA [address] [place] [address] [facility] 01/21/24 Blueprint Assembler Relationship Specialty Start Date End Date Natty Lin PA [address] [place] [address] [place] [address] [facility] 01/21/24 Blueprint Assembler Relationship Specialty Start Date End Date Natty Lin PA [address] [place] [address] [facility] 01/21/24 Blueprint Assembler Relationship Specialty Start Date End Date Natty Lin PA [address] [place] [address] [facility] 01/21/24 FOR RECORDS PERTAINING TO PATIENTS [...] BE BASED ON THE PRIMARY CLINICAL RECORDS. [facility] [employer] [facility]. provides no warranty or guarantee of the accuracy or completeness of information in this document.
== END 2025-03-18 20:14 | disposition home or self-care (01) ==
LOC: LAB 20:13
PROVIDERS: Visit Provider Obstetrics & Gynecology
DX: Z34.93 Encounter for supervision of normal pregnancy, unspecified, third trimester (principal)
CPT/HCPCS: 87081

== ENCOUNTER 2025-04-08 04:50 | Inpatient (IN) | payer OTHER, SELFPAY ==
--- OUTSIDE RECORDS SUMMARY | 2024-02-01 11:23 | XMS_ITS | Continuity of Care Document ---
Author Organization [facility], [facility] Address [address] [place] [id number] Phone Care Team Providers Care Chiller Tender Name Role Phone Jose Banda OD Unavailable Unavailable Allergies, Adverse Reactions, Alerts Substance Reaction Status Criticality No Known Allergies Active No Inform ation Procedures Procedure Date REFRACTION EYE EXAM, NEW PATIENT REFRACTION EYE EXAM ESTABLISHED PATIENT EYE EXAM, NEW PATIENT VISION REFRACTION OPTIONAL UPDATE Advance Directives Directive Yes / No Effective Date File Name No Information Encounters Encounter Description Practice Location Reason(s) For Visit Diagnoses Date Provider Providers Copied on Encounter [facility], [address] [place] [address], [id number], tel:[phone] [facility] No Information 4 Veronika Garcia. [address] [place] [address], [id number] , [place]. tel: [phone] [facility], [address] [place] [address], [id number], tel:[phone] [facility] vision exam (chief complaint) Hypermetropia, bilateralRegular astigmatism, bilateralHeadache , unspecified 4 Veronika Garcia. [address] [place] [address], [id number] , . tel: [phone] Referring Provider: Jose Quintero, [address] [place] [address], [id number] . tel:[phone] [facility], [place], [address] [place] [address], [id number], tel:[phone] [facility] no problems with vision and no complaints (chief complaint)1 (chief complaint)n o problems with vision and no complaints (chief complaint)1 (chief complaint) Hypermetropia, bilateralRegular astigmatism, bilateral Aug-0 7-202 0 Veronika Garcia. [address] [place] [address], [id number] , . tel: [phone] [facility], [place], [address] [place] [address], [id number], tel:[phone] [facility]- blurry vision (chief complaint)b lurry vision (chief complaint) Hypermetropia, bilateral Mar-2 9-201 8 Veronika Garcia. [address] [place] [address], [id number] , [place]. tel: [phone] Family History Family Member Type Diagnosis Age At Onset Problem (finding) No family history of Gl aucoma Problem (finding) No family hist ory of Macular degeneration Problem (finding) Family history of hyper tension Problem (finding) No family history of Ca taracts Problem No family history of Diabete s mellitus Payers Payer name Insurance type Covered democrat ID Tristian interiano(s) [employer] [id number] Social History Type Description Quantity Date Captured Comments Alcohol Use Details Unknown Caffeine Use Details Unknown Tobacco Use Status No Information Smoking Status No Information Sex Female Chief Complaint And Reason For Visit No Information Reason For Referral Reason For Referral No Information History Of Present Illness Encounter Date Complaint History Of Prese nt Illness vision exam The 18 year old patient presents for evaluation of vision and eyes in the right eye and left eye. Pt reports vision has just gotten worse, harder to see farther away. Anytime focusing on anything, will get a severe headache. Headache will resolve after takes a break. This all has gotten worse over the past 6 mos. Pt denies eye pain or discomfort. No eye meds or OTC AT. no problems with vis ion and no complaints The 14 Year 8 Months old female presents for fu Hypermetropia OU. Pt reports no problems with vision and no complaints in the right eye and left eye, since last exam. Vision good, stable and constant D & N c gls.. The patient denies pain or discomfort. No eye meds or OTC AT. 1 The patient robert es COVID-19 symptoms - temperature normal. blurry vision The 12 Year 4 Mo nths old female presents for evaluation of blurry vision in the right eye and left eye. The onset was gradual. It affects distance vision. It occurs constantly. The patient denies pain or discomfort. Functional Status Date Functional Assessmen t No Information Instructions Date Instruction Edgardo hansen Impression/Plan Impression/Plan Impression/Plan - Ey es are healthy. No signs of glaucoma, cataracts or ARMD. Glasses Rx Update Optional. Doctor answered pt questions and concerns. Follow up with yearly exams. Follow up - Return i n 1 year with [facility] for Refract T & D. Assessments Type Assessment Date No Information Patient Care Teams Name Effective Dates (start - stop) Status Members No Information
--- OUTSIDE RECORDS SUMMARY | 2025-04-01 15:40 | XMS_ITS | Encounter Summary ---
Author Organization [facility] Address [address] [place] [address] Care Team Providers Care Tube Molder Fiberglass Name Role Phone [place], Natty MEHTA Unavailable Reason for Visit * Reason Comments Routine Visit Encounter Details Date Type Department Care Team (Late st Contact Info) Description 04/01/2025 3:40 PM EDT Routine [facility] [address] [place] [id number] Isael Loredo, DO [address] Berta Sadler, [facility] 38 weeks gestation of ([facility]); Third trimester ([facility]) Social History Tobacco Use Types Packs/Day Years Used Date Smoking Tobacco: Never Assessed Estimated Date of Delivery Comme nts Yes 04/15/2025 Based on Ultraso und Sex and Gender Information Value Date Recorded Sex Assigned at Not on file Legal Sex Female 1:18 PM EDT Gender Identity Not on file Sexual Orientation Not on file documented as of this encounter Last Filed Vital Signs Vital Sign Reading Time Taken Comments Blood Pressure 110/64 04/01/2025 3:51 PM EDT Pulse - - Temperature - - Respiratory Rate - - Oxygen Saturation - - Inhaled Oxygen Concentration - - Weight 68.9 kg (152 lb) 04/01/2025 3:51 PM EDT Height - - Body Mass Index 27.8 07/31/2023 11:52 AM EDT documented in this encounter Progress Notes * Bess Zapien LPN - 04/01/2025 3:40 PM EDT Reason for Appointment: Patient ID: Carole Thorpe is a 19 y.o. female who presents for Routine Visit Patient presents today for Return OB appointment. MEDICATIONS No current outpatient medications ALLERGIES No Known Allergies PROBLEMS Active Ambulatory Problems Diagnosis Date Noted Third trimester 03/25/2025 37 weeks gestation of 03/25/2025 Resolved Ambulatory Problems Diagnosis Date Noted No [...] Constitutional: Appearance: Normal appearance. She is well-developed. Genitourinary: Vulva normal. Cardiovascular: Rate and Rhythm: Normal rate and [...] nursing note reviewed. Exam conducted with a smelter charger present. Vitals: Estimated body mass index is 27.8 kg/m?? as calculated from the following: Height as of 07/31/23: 5' 2 . Weight as of this encounter: 152 lb. BP: 110/64 Patient's last menstrual period was 07/03/2024. ASSESSMENT & PLAN ICD-10-CM 1. 38 weeks gestation of Z3A.38 POCT urinalysis dipstick manually resulted 2. Third trimester Z34.93 POCT urinalysis dipstick manually resulted Return OB: Patient presents today for a routine obstetrics appointment. Patient is currently 38w0d . Patient states she is doing well [...] by Bess Zapien LPN on behalf of: Isael Loredo DO documented in this encounter Plan of Treatment Not on file documented as of this encounter Procedures Procedure Name Priority Date/Time Associated Diagnosis Comments POCT URINALYSIS DIPSTICK Routine 04/01/2025 3:57 PM EDT 38 weeks gestation of ([facility]) Third trimester ([facility]) documented in this encounter Results * (ABNORMAL) POCT urinalysis dipstick manually resulted (04/01/2025 3:57 PM EDT) Color, UA Yellow Clarity, UA Clear Glucose, UA Negative Negative - 2000(110) ++++ mg/dL Bilirubin, UA Negative Negative - 4(70) +++ mg/dL Ketones, UA Negative Negative - 160(16) ++++ mg/dL Spec Grav, UA 1.025 1 - 1.03 Blood, UA Positive Negative - 50 Rupert/mcL Comment:trace-intact pH, UA 7.0 5 - 9 Protein, UA Trace Negative - 2000(20) ++++ mg/dL Urobilinogen, UA 1.0 0.2 - 12 mg/dL Leukocytes, UA Positive Negative - 500+++ Emily/mcL Comment:small Nitrite, UA Negative Negative - Positive Urine 04/01/2025 3:57 PM EDT Isael Loredo DO POINT OF CARE TEST ENTER/EDIT OR DERABLES Final Result documented in this encounter Visit Diagnoses Diagnosis 38 weeks gestation of ([facility]) Third trimester ([facility]) state, incidental documented in this encounter Care Teams Tube Molder Fiberglass Relationship Specialty Start Date End Date Natty Pearson PA [address] [place] [address] Dr [place], [facility] PCP - [facility] 01/21/24 documented as of this encounter
[2025-04-08] VITALS (40 sets, daily range): BP systolic 105–178; BP diastolic 53–83; PULSE 75–108; TEMP 36.7–36.8
--- OUTSIDE RECORDS SUMMARY | 2025-04-08 05:01 | XMS_ITS | CCD ---
Author Organization [facility] Care Team Providers Care Certified Welder Name Role Phone JULY ASENCIO Unavailable Unavailable STEPHANIE LIN Attending Unavailable STEPHANIE LIN Consulting Unavailable STEPHANIE LIN Admitting Unavailable REQUEST, NONE LISTED Primary Care UnavailCARMEN Odell Consulting Unavailable RACHELLE COLLAZO Attending Unavailable NO PCP, NO PCP Primary Care Unavailable Natty Sterling Unavailable NATTY LIN Attending Unavailable NATTY LIN Attending Unavailable FACUNDO, DAGMAR Attending Unavailable NATTY LIN Attending Unavailable NATTY LIN Referring Unavailable FACUNDO, DAGMAR Attending Unavailable NATTY LIN Attending Unavailable FACUNDO, DAGMAR Attending Unavailable FACUNDO, DAGMAR Attending Unavailable FACUNDO, DAGMAR Attending Unavailable FACUNDO, DAGMAR Attending Unavailable Medications Current Medications Medication Drug [...] 11-13-2024 Episodic Other and delivery including normal (20 sources) ; Translations: [Encounter for supervision of normal , unspecified, unspecified trimester] Onset: 03-25-2025 09-11-2024 Episodic Other screening for suspected conditions [...] [36 weeks gestation of ] 03-18-2025 Episodic Residual codes; unclassified (7 sources) Gestation period, 37 weeks; Translations: [37 weeks gestation of ] Onset: 03-25-2025 03-25-2025 Episodic Residual codes; unclassified (2 sources) Gestation period, 38 weeks; Translations: [38 weeks gestation of ] 04-01-2025 Episodic Substance-related disorders (1 source) Nicotine dependence, cigarettes, uncomplicated; Translations: [NICOTINE DEPEND CIGARETTES UNCOMP] Onset: 03-19-2023 Chronic Urinary tract infections (1 source) Urinary tract infection, site not specified; Translations: [UTI SITE NOT SPECIFIED] Onset: 03-19-2023 Episodic Results Test Name Value Interpretation Reference Range Facility Urinalysis macro (dipstick) panel (U)on 04-01-2025 Bilirubin, UA Negative Negative - 4(70) +++ mg/dL [facility] Blood, UA Positive Negative - 50 Rupert/mcL [facility] Comment on above: trace-intact Clarity, UA Clear [facility] Color, UA Yellow [facility] Glucose, UA Negative Negative - 2000(110) ++++ mg/dL [facility] Interpretation and review of laboratory results Abnormal [facility] Ketones, UA Negative Negative - 160(16) ++++ mg/dL [facility] Leukocytes, UA Positive Negative - 500+++ Emily/mcL [facility] Comment on above: small Nitrite, UA Negative Negative - Positive [facility] pH, UA 7 5 - 9 [facility] Protein, UA Trace Negative - 1999(20) ++++ mg/dL [facility] Spec Grav, UA 1.025 1 - 1.03 [facility] Urobilinogen, UA 1.0 0.2 - 12 mg/dL [facility] Urinalysis macro (dipstick) panel (U)on 03-25-2025 Bilirubin, UA Positive Negative - 4(70) +++ mg/dL [facility] Comment on above: small Blood, UA Negative Negative - 50 Rupert/mcL [facility] Clarity, UA Clear [facility] Color, UA Yellow [facility] Comment on above: clear Glucose, UA Negative Negative - 1999(110) ++++ mg/dL [facility] Interpretation and review of laboratory results Abnormal [facility] Ketones, UA Positive Negative - 160(16) ++++ mg/dL [facility] Comment on above: trace Leukocytes, UA Positive Negative - 500+++ Emily/mcL [facility] Comment on above: small Nitrite, UA Negative Negative - Positive [facility] pH, UA 7 5 - 9 [facility] Protein, UA Positive Negative - 1999(20) ++++ mg/dL [facility] Comment on above: 30 mg/dL Spec Grav, UA 1.025 1 - 1.03 [facility] Urobilinogen, UA 1.0 0.2 - 12 mg/dL [facility] Urinalysis macro (dipstick) panel (U)on 03-18-2025 Bilirubin, UA Positive Negative - 4(70) +++ mg/dL [facility] Comment on above: small Blood, UA Negative Negative - 50 Rupert/mcL [facility] Clarity, UA Clear [facility] Color, UA Straw [facility] Glucose, UA Negative Negative - 1999(110) ++++ mg/dL [facility] Interpretation and review of laboratory results Abnormal [facility] Ketones, UA Positive Negative - 160(16) ++++ mg/dL [facility] Comment on above: 40 Leukocytes, UA Positive Negative - 500+++ Emily/mcL [facility] Comment on above: small Nitrite, UA Negative Negative - Positive [facility] pH, UA 6.5 5 - 9 [facility] Protein, UA Positive Negative - 2000(20) ++++ mg/dL [facility] Comment on above: 100 Spec Grav, UA 1.03 1 - 1.03 [facility] Urobilinogen, UA 1.0 0.2 - 12 mg/dL [facility] Urinalysis macro (dipstick) panel (U)on 03-10-2025 Bilirubin, UA Negative Negative - 4(70) +++ mg/dL [facility] Blood, UA Negative Negative - 50 Rupert/mcL [facility] Clarity, UA Clear [facility] Color, UA Yellow [facility] Glucose, UA Negative Negative - 1999(110) ++++ mg/dL [facility] Interpretation and review of laboratory results Abnormal [facility] Ketones, UA Negative Negative - 160(16) ++++ mg/dL [facility] Leukocytes, UA Positive Negative - 500+++ Emily/mcL [facility] Comment on above: large Nitrite, UA Negative Negative - Positive [facility] pH, UA 7 5 - 9 [facility] Protein, UA Positive Negative - 1999(20) ++++ mg/dL [facility] Comment on above: 30 Spec Grav, UA 1.025 1 - 1.03 [facility] Urobilinogen, UA 1.0 0.2 - 12 mg/dL [facility] MLR HEMOGLOBIN A1Con 025 Glucose [Mass/Vol] 108 mg/dL [facility] HbA1c (Bld) [Mass fraction] 5.4 % 4.5 - 6.2 % [facility] Comment on above: ADA RECOMMENDED LIMI T 4.0 - 6.0 ADA THERAPEUTIC TARGET < 7.0 ACTION SUGGESTED > 7.0 [facility] Urinalysis macro (dipstick) panel (U)Ordered By: Marisol Arellano on 02-11-2025 Bilirubin, UA Negative Negative - 4(70) +++ mg/dL [facility] Blood, UA Negative Negative - 50 Rupert/mcL [facility] Clarity, UA Clear [facility] Color, UA Yellow [facility] Glucose, UA Negative Negative - 1999(110) ++++ mg/dL [facility] Interpretation and review of laboratory results Abnormal [facility] Ketones, UA Negative Negative - 160(16) ++++ mg/dL [facility] Leukocytes, UA Few Negative - 500+++ Emily/mcL [facility] Comment on above: small Nitrite, UA Negative Negative - Positive [facility] pH, UA 7.5 5 - 9 [facility] Protein, UA Trace Negative - 2000(20) ++++ mg/dL [facility] Spec Grav, UA 1.02 1 - 1.03 [facility] Urobilinogen, UA 0.2 0.2 - 12 mg/dL [facility] US OB FOLLOW UP TRANSABDOMIN AL [...] II, MD, PHD at 07-Feb-2025 06:51:43 PM [facility] Normal Not Available Comment on above: Order Comment: US OB SCAN FOR GROWTH Estimated Date of Delivery: 04/15/25 Gestational Age as of 01/28/2025: 29w0d Urinalysis macro (dipstick) panel (U)on 12-15-2024 Bilirubin, UA Negative Negative - 4(70) +++ mg/dL [facility] Blood, UA Positive Negative - 50 Rupert/mcL [facility] Comment on above: trace-intact Clarity, UA Clear [facility] Color, UA Yellow [facility] Glucose, UA Negative Negative - 1999(110) ++++ mg/dL [facility] Interpretation and review of laboratory results Abnormal [facility] Ketones, UA Negative Negative - 160(16) ++++ mg/dL [facility] Leukocytes, UA Moderate Negative - 500+++ Emily/mcL [facility] Nitrite, UA Negative Negative - Positive [facility] pH, UA 6.5 5 - 9 [facility] Protein, UA Trace Negative - 1999(20) ++++ mg/dL [facility] Spec Grav, UA 1.03 1 - 1.03 [facility] Urobilinogen, UA 1.0 0.2 - 12 mg/dL [facility] IGP,APTIMA HPV,AGE GDLNon AGE GDLN ACOG TESTING Note . [facility] Comment on above: TESTS RESULT FLAG UN ITS REF RANGE LAB Clinician Provided Cytology Information Source.............Cervix Other.............. No. of containers..01 ThinPrep Vial Age Algo ACOG Trisha... FLAG LEGEND: L-Low Normal,H-High Normal,LL-Alert Low,HH-Alert High <-Panic Low,>-Panic High,A-Abnormal,AA-Critical Abnormal Performed at: 01 [facility] [address] [facility] [place] [address] Samina Doss MD, IGP, RFX APTIMA HPV ASCU Note . [facility] Comment on above: TESTS RESULT FLAG UN ITS REF RANGE LAB DIAGNOSIS: 02 NEGATIVE FOR INTRAEPITHELIAL LESION OR MALIGNANCY. Specimen adequacy: 02 Satisfactory for evaluation. No endocervical component is identified. Performed by: 02 Tabatha Fink, Machine Container Washer ([facility]) . 02 Note: Note 03 The Pap [...] <-Panic Low,>-Panic High,A-Abnormal,AA-Critical Abnormal Performed at: [id number] [place] [address] Natalya Healy PhD, [address] [address] Samina Doss MD, Performed at: [facility] [id number] Gas Turbine Mechanic: Samina Doss MD, Phone: [phone] Performed at: [address], [place] [id number] [employer] Turbine Mechanic: Natalya Healy PhD, Phone: [phone] [facility] RECURRENT VAGINITIS (HTRX)on 11-14-2024 ATOPOBIUM VAGINAE 0 [facility] ATOPOBIUM VAGINAE Not detected [facility] BVAB 2,3 (BACTERIAL VAGINOSIS ASSOCIATED BACTERIA 2, 3); MOBILUNCUS SPP 0 [facility] BVAB 2,3 (BACTERIAL VAGINOSIS ASSOCIATED BACTERIA 2, 3); MOBILUNCUS SPP Not detected [facility] YESSENIA ALBICANS, PARAPSILOSIS, TROPICALIS 0 [facility] YESSENIA ALBICANS, PARAPSILOSIS, TROPICALIS Not detected [facility] YESSENIA GLABRATA 0 [facility] YESSENIA GLABRATA Not detected [facility] YESSENIA KRUSEI 0 [facility] YESSENIA KRUSEI Not detected [facility] CHLAMYDIA TRACHOMATIS 0 [facility] CHLAMYDIA TRACHOMATIS Not detected [facility] GARDNERELLA VAGINALIS 0 [facility] GARDNERELLA VAGINALIS Not detected [facility] MEGASPHAERA (TYPES 1, 2) 0 [facility] MEGASPHAERA (TYPES 1, 2) Not detected [facility] MYCOPLASMA GENITALIUM 0 [facility] MYCOPLASMA GENITALIUM Not detected [facility] NEISSERIA GONORRHOEAE 0 [facility] NEISSERIA GONORRHOEAE Not detected [facility] TRICHOMONAS VAGINALIS 0 [facility] TRICHOMONAS VAGINALIS Not detected [facility] BOX TESTon 10-06-2024 BOX TEST SENT OUT [facility] BOX[address] UNITY [facility] BOX2 10/06/2024 [facility] B[facility] Urinalysis macro (dipstick) panel (U)on 10-06-2024 Bilirubin, UA Positive Negative - 4(70) +++ mg/dL [facility] Comment on above: small Blood, UA Negative Negative - 50 Rupert/mcL [facility] Clarity, UA Clear [facility] Color, UA Carole [facility] Glucose, UA Negative Negative - 1999(110) ++++ mg/dL [facility] Interpretation and review of laboratory results Abnormal [facility] Ketones, UA Positive Negative - 160(16) ++++ mg/dL [facility] Comment on above: 40 Leukocytes, UA Trace Negative - 500+++ Emily/mcL [facility] Nitrite, UA Negative Negative - Positive [facility] pH, UA 7 5 - 9 [facility] Protein, UA Positive Negative - 1999(20) ++++ mg/dL [facility] Comment on above: 30 mg Spec Grav, UA 1.025 1 - 1.03 [facility] Urobilinogen, UA 1.0 0.2 - 12 mg/dL [facility] HCG ( test) Ql (U)o n 09-11-2024 Interpretation and review of laboratory results Abnormal [facility] Preg Test, Ur Positive Negative [facility] Urinalysis macro (dipstick) panel (U)on 09-11-2024 Bilirubin, UA Negative Negative - 4(70) +++ mg/dL [facility] Blood, UA Negative Negative - 50 Rupert/mcL [facility] Clarity, UA Clear [facility] Color, UA Yellow [facility] Glucose, UA Negative Negative - 1999(110) ++++ mg/dL [facility] Interpretation and review of laboratory results Abnormal [facility] Ketones, UA Negative Negative - 160(16) ++++ mg/dL [facility] Leukocytes, UA Negative Negative - 500+++ Emily/mcL [facility] Nitrite, UA Negative Negative - Positive [facility] pH, UA 5.5 5 - 9 [facility] Protein, UA Negative Negative - 1999(20) ++++ mg/dL [facility] Spec Grav, UA 1.02 1 - 1.03 [facility] Urobilinogen, UA 1.0 0.2 - 12 mg/dL [facility] ABO AND RH TYPEon 03-15-2023 ABO and Rh group Nom (Bld) ABO Rh Typing O Rh Positive Normal [facility] Comment on above: Performed By: #### A BORH #### [facility] [address] [address] [address] Alejandro Schuler CBC AUTO DIFFon 03-15-2023 BASO # 0.0 103/ul Normal 0.0-0.1 [facility] Comment on above: Performed By: #### C BC #### [facility] [address] [place] [address] Dr. Alejandro Schuler Basophils/100 WBC (Bld) 0.3 % Normal 0.2-2.0 [facility] Comment on above: Performed By: #### C BC #### [facility] [address] [place] [address] Dr. Alejandro Schuler EO # 0.1 103/ul Normal 0.0-0.7 [facility] Comment on above: Performed By: #### C BC #### [facility] [address] [place] [address] Dr. Alejandro Schuler Eosinophils/100 WBC (Bld) 0.7 % Critically low 0.9-7.0 [facility] Comment on above: Performed By: #### C BC #### [facility] [address] [place] [address] Dr. Alejandro Schuler Erythrocyte distribution width (RBC) [Ratio] 12.8 % Normal 11.0-15.0 [facility] Comment on above: Performed By: #### C BC #### [facility] [address] [place] [address] Dr. Alejandro Schuler Hematocrit (Bld) [Volume fraction] 37.0 % Normal 36.0-48.0 [facility] Comment on above: Performed By: #### C BC #### [facility] [address] [place] [address] Dr. Alejandro Schuler Hemoglobin (Bld) [Mass/Vol] 13.1 g/dL Normal 12.0-16.0 [facility] Comment on above: Performed By: #### C BC #### [facility] [address] [place] [address] Dr. Alejandro Schuler IG # 0.06 10e3/ul Critically high 0.00-0.03 [facility] Comment on above: Performed By: #### C BC #### [facility] [address] [place] [address] Dr. Alejandro Schuler IG % 0.7 % Critically high 0.0-0.5 [facility] Comment on above: Performed By: #### C BC #### [facility] [address] [place] [address] Dr. Alejandro Schuler LYMPH # 1.7 103/ul Normal 1.2-3.8 [facility] Comment on above: Performed By: #### C BC #### [facility] [address] [place] [address] Dr. Alejandro Schuler Lymphocytes/100 WBC (Bld) 20.1 % Critically low 20.5-60.0 [facility] Comment on above: Performed By: #### C BC #### [facility] [address] [place] [address] Dr. Alejandro Schuler MANUAL DIFF REQ NO Normal [facility] Comment on above: Performed By: #### C BC #### [facility] [address] [place] [address] Dr. Alejandro Schuler MCH (RBC) [Entitic mass] 28.5 pg Normal 26.7-34.0 [facility] Comment on above: Performed By: #### C BC #### [facility] [address] [place] [address] Dr. Alejandro Schuler MCHC (RBC) [Mass/Vol] 35.4 g/dL Critically high 29.9-35.2 [facility] Comment on above: Performed By: #### C BC #### [facility] [address] [place] [address] Dr. Alejandro Schuler MCV (RBC) [Entitic vol] 80.6 fL Critically low 81.0-99.0 [facility] Comment on above: Performed By: #### C BC #### [facility] [address] [place] [address] Dr. Alejandro Schuler MONO # 0.7 103/ul Normal 0.3-0.8 [facility] Comment on above: Performed By: #### C BC #### [facility] [address] [place] [address] Dr. Alejandro Schuler Monocytes/100 WBC (Bld) 7.8 % Normal 1.7-12.0 [facility] Comment on above: Performed By: #### C BC #### [facility] [address] [place] [address] Dr. Alejandro Scuhler NEUT # 6.1 103/ul Normal 1.4-6.5 [facility] Comment on above: Performed By: #### C BC #### [facility] [address] [place] [address] Dr. Alejandro Schuler Neutrophils/100 WBC (Bld) 70.4 % Normal 43.0-75.0 [facility] Comment on above: Performed By: #### C BC #### [facility] [address] [place] [address] Dr. Alejandro Schuler Platelet mean volume (Bld) [Entitic vol] 8.8 fL Critically low 9.5-13.5 [facility] Comment on above: Performed By: #### C BC #### [facility] [address] [place] [address] Dr. Alejandro Schuler PLT 245 103/ul Normal 150-450 [facility] Comment on above: Performed By: #### C BC #### [facility] [address] [place] [address] Dr. Alejandro Schuler RBC 4.59 106/ul Normal 4.20-5.40 [facility] Comment on above: Performed By: #### C BC #### [facility] [address] [place] [address] Dr. Alejandro Schuler WBC 8.7 103/ul Normal 4.0-11.0 [facility] Comment on above: Performed By: #### C BC #### [facility] [address] [place] [address] Dr. Alejandro Schuler CULTURE URINEon 03-15-2023 CULTURE URINE Culture Observations : LIGHT GROWTH OF MIXED GENITAL MAK. NO POTENTIAL PATHOGENS SEEN. Normal [facility] Comment on above: Performed By: #### U RCX #### [facility] [address] [address] [address] Alejandro GENAO URINE PROFILEon 3 Bilirubin Ql (U) Negative Normal NEGATIVE [facility] Comment on above: Performed By: #### U MICRO, ERUR, PREGU #### [facility] [address] [place] [address] Dr. Alejandro Schuler Clarity (U) CLEAR Normal CLEAR [facility] Comment on above: Performed By: #### U MICRO, ERUR, PREGU #### [facility] [address] [address] [address] Alejandro Schuler Color (U) YELLOW Normal YELLOW [facility] Comment on above: Performed By: #### U MICRO, ERUR, PREGU #### [facility] [address] [place] [address] Dr. Alejandro CHILDRESS A micrscopic examina tion will be performed if indicated. Normal [facility] Comment on above: Performed By: #### U MICRO, ERUR, PREGU #### [facility] [address] [place] [address] Dr. Alejandro Schuler Glucose Ql (U) Negative Normal NEGATIVE [facility] Comment on above: Performed By: #### U MICRO, ERUR, PREGU #### [facility] [address] [address] [address] Alejandro Schuler Hemoglobin Ql (U) LARGE Abnormal NEGATIVE [facility] Comment on above: Performed By: #### U MICRO, ERUR, PREGU #### [facility] [address] [address] [address] Alejandro Schuler Ketones Ql (U) >=80 Abnormal NEGATIVE [facility] Comment on above: Performed By: #### U MICRO, ERUR, PREGU #### [facility] [address] [place] [address] Dr. Alejandro Schuler LEUKOCYTES TRACE Abnormal NEGATIVE [facility] Comment on above: Performed By: #### U MICRO, ERUR, PREGU #### [facility] [address] [address] [address] Alejandro Schuler Nitrite Ql (U) Negative Normal NEGATIVE [facility] Comment on above: Performed By: #### U MICRO, ERUR, PREGU #### [facility] [address] [address] [address] Alejandro Schuler pH (U) 6.0 [pH] Normal 5-9 [facility] Comment on above: Performed By: #### U MICRO, ERUR, PREGU #### [facility] [address] [place] [address] Dr. Alejandro Schuler SPEC GRAVITY >=1.030 Abnormal 1.005-<=1.02 5 [facility] Comment on above: Performed By: #### U MICRO, ERUR, PREGU #### [facility] [address] [place] [address] Dr. Alejandro Schuler UA PROTEIN TRACE Normal NEGATIVE/ TRACE [facility] Comment on above: Performed By: #### U MICRO, ERUR, PREGU #### [facility] [address] [place] [address] Dr. Alejandro Schuler UR MICRO IND INDICATED Normal [facility] Comment on above: Performed By: #### U MICRO, ERUR, PREGU #### [facility] [address] [place] [address] Dr. Alejandro Schuler Urobilinogen Qn (U) 1.0 {Nannette'U}/dL Normal 0.2 - 1.0 [facility] Comment on above: Performed By: #### U MICRO, ERUR, PREGU #### [facility] [address] [place] [address] Dr. Alejandro Schuler PREG QUANT HCGon 03-15-2023 HCG QUANT [id number] mIU/mL Normal [facility] Comment on above: Performed By: #### P REGQNT #### [facility] [address] [place] [address] Dr. Alejandro Schuler HCG RANGE SEE BELOW Normal [facility] Comment on above: Result Comment: 5-50 0.2-1 WEEK 50-500 1-2 WEEKS 100-5,000 2-3 WEEKS 500-10,000 3-4 WEEKS 1,000-50,000 4-5 WEEKS 10,000-100,000 5-6 WEEKS 15,000-200,000 6-8 WEEKS 10,000-100,000 2-3 MONTHS Performed By: #### P REGQNT #### [facility] [address] [place] [address] Dr. Alejandro Schuler URon 03-15-2023 , QUAL Positive Abnormal NEGATIVE [facility] Comment on above: Performed By: #### U MICRO, ERUR, PREGU #### [facility] [address] [place] [address] Dr. Alejandro Schuler PROF CHEM 8 (BAS METB)on Anion gap [Moles/Vol] 14.7 mmol/L Normal [facility] Comment on above: Performed By: #### B MP #### [facility] [address] [place] [address] Dr. Alejandro Schuler Calcium [Mass/Vol] 9.1 mg/dL Normal 8.5-10.1 [facility] Comment on above: Performed By: #### B MP #### [facility] [address] [place] [address] Dr. Alejandro Schuler Chloride [Moles/Vol] 101 mmol/L Normal 98-107 [facility] Comment on above: Performed By: #### B MP #### [facility] [address] [place] [address] Dr. Alejandro Schuler CO2 [Moles/Vol] 23.8 mmol/L Normal 21.0-32.0 [facility] Comment on above: Performed By: #### B MP #### [facility] [address] [place] [address] Dr. Alejandro Schuler Creatinine [Mass/Vol] 0.56 mg/dL Normal 0.55-1.02 [facility] Comment on above: Performed By: #### B MP #### [facility] [address] [place] [address] Dr. Alejandro Schuler EGFR-AF SAMOAN >60 Normal >=60 [facility] Comment on above: Performed By: #### B MP #### [facility] [address] [place] [address] Dr. Alejandro Schuler EGFR-NON AF SAMOAN >60 Normal >=60 [facility] Comment on above: Performed By: #### B MP #### [facility] [address] [address] [address] Alejandro Schuler Glucose [Mass/Vol] 78 mg/dL Normal 74-106 [facility] Comment on above: Performed By: #### B MP #### [facility] [address] [address] [address] Alejandro Schuler Potassium [Moles/Vol] 3.5 mmol/L Normal 3.5-5.1 [facility] Comment on above: Performed By: #### B MP #### [facility] [address] [address] [address] Alejandro Schuler Sodium [Moles/Vol] 136 mmol/L Normal 136-145 [facility] Comment on above: Performed By: #### B MP #### [facility] [address] [place] [address] Dr. Alejandro Schuler Urea nitrogen [Mass/Vol] 8.0 mg/dL Normal 6.4-19.3 [facility] Comment on above: Performed By: #### B MP #### [facility] [address] [place] [address] Dr. Alejandro Schuler Urea nitrogen/Creatini ne [Mass ratio] 14.3 mg/mg Normal [facility] Comment on above: Performed By: #### B MP #### [facility] [address] [place] [address] Dr. Alejandro Schuler URINE MICROSCOPIC ONLYon BACTERIA SMALL Abnormal NONE SEEN [facility] Comment on above: Performed By: #### U MICRO, ERUR, PREGU #### [facility] [address] [address] [address] Alejandro Schuler Bacteria identified Cx Nom (U) INDICATED Normal [facility] Comment on above: Performed By: #### U MICRO, ERUR, PREGU #### [facility] [address] [place] [address] Dr. Alejandro Schuler CAST NONE SEEN Normal NONE SEEN [facility] Comment on above: Performed By: #### U MICRO, ERUR, PREGU #### [facility] [address] [address] [address] Alejandro Schuler Crystals LM Nom (Urine sed) NONE SEEN Normal NONE SEEN [facility] Comment on above: Performed By: #### U MICRO, ERUR, PREGU #### [facility] [address] [address] [address] Alejandro Schuler Epithelial cells LM Ql (Urine sed) FEW Abnormal NONE SEEN /RARE [facility] Comment on above: Performed By: #### U MICRO, ERUR, PREGU #### [facility] [address] [address] [address] Alejandro Schuler MUCOUS TRACE Abnormal NONE SEEN [facility] Comment on above: Performed By: #### U MICRO, ERUR, PREGU #### [facility] [address] [address] [address] Alejandro Schuler RBC 20-50 Abnormal 0-2 [facility] Comment on above: Performed By: #### U MICRO, ERUR, PREGU #### [facility] [address] [address] [address] Alejandro Schuler WBC 5-10 Abnormal NONE SEEN [facility] Comment on above: Performed By: #### U MICRO, ERUR, PREGU #### [facility] [address] [address] [address] Alejandro Schuler US PREG TVon 03-15-2023 US PREG TV EXAM: US PREG TV HISTORY: Pain COMPARISON: None. TECHNIQUE: Ultrasound obstetrical first trimester. FINDINGS: Single living intrauterine gestation with cardiac rate of 179 bpm. Yolk sac is present. [place]-rump length measurement of 2.23 cm yielding estimated [...] by: CARMEN AGUIRRE Date: 2023-03-15 18:03 Normal [facility] Urine Cultureon 06-18-2018 Bacteria identified Cx Nom (U) Urine CultureUrine Culture [id number] URINE-MIDSTREAM CLEAN CATCHURINE-MIDSTREAM CLEAN CATCH No significant growthNo significant growth 06/18/2018 FINAL 06/18/2018 FINAL Normal [facility] Comment on above: Performed By: #### U RCUL ####[facility] [id number] [place], [place] [phone] ED NOTEon 06-17-2018 ED NOTE HNO ID: [id number] Author: Janett Toledo RN Service: (none) Author Type: Registered Nurse Type: ED Notes Filed: 06/16/2018 10:46 PM Note Text: Patient tolerated po fluids- pain 12/29- discharge instructions given- father verbalized understanding Normal [facility] ED PROV NOTEon 06-17-2018 Protein mass conc HNO ID: [id number] thor: RORY Schulteervice: Emergency MedicineAuthor Type: PhysicianType: ED Provider NotesFiled: 06/17/2018 5:11 AMNote Text:ED Provider NotePatient Name: Maciej BusbyRN: [id number] DATE: 06/16/18HistoryPatient presents with:Abdominal Pain: L sideHistory [...] of disposition: stableSIGNATURE: Bruce Steel MD06/17/18 0511 [facility] ED NOTEon 06-16-2018 ED NOTE HNO ID: [id number] thor: Janett Toledo, RNService: (none)Author Type: Registered NurseType: ED NotesFiled: 06/16/2018 9:08 PMNote Text: C/o pain to left side of umbilicus- onset 40 minutes ago- nausea withvomiting every morning for the past 3 days [facility] ED NOTE HNO ID: [id number] thor: Era Rollins, RNService: (none)Author Type: Registered NurseType: ED NotesFiled: 06/16/2018 8:53 PMNote Text: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 Ptdenies any nausea or vomiting. Dad states she has been sick the pastcouple of mornings. Normal [facility] HCG, Urine qualon 06-16-2018 HCG.beta subunit ( test) Ql (U) Negative Normal Negative [facility] Comment on above: Performed By: #### U HCGQL ####[facility] [id number] [place], [place] [phone] Urinalysison 06-16-2018 Bilirubin Negative Normal Negative [facility] Comment on above: Performed By: #### U A ####[facility] [id number] [place], [place] [phone] Clarity Nom (U) Clear Normal Clear [facility] Comment on above: Performed By: #### U A ####[facility] Rwr[address] [facility], [place] [phone] Color Nom (U) Yellow Normal Yellow [facility] Comment on above: Performed By: #### U A ####[facility] [id number] [facility], [place] [phone] Epithelial Cells Few Normal [facility] Comment on above: Result Comment: Squa mous Epithelial CellsFewTransitional Epithelial Cells Performed By: #### U A ####[facility] Uwi[address] [facility], [place] [phone] Glucose Negative Normal Negative [facility] Comment on above: Performed By: #### U A ####[facility] [id number] [place], [place] [phone] Hemoglobin/Blood Moderate Critically abnormal Negative [facility] Comment on above: Performed By: #### U A ####[facility] [id number] [place], [place] [phone] INR Coag RelTime (Bld) 0-3 Normal 0-3 [facility] Comment on above: Performed By: #### U A ####[facility] Wff54712 [place], [place] [phone] Ketone Negative Normal Negative [facility] Comment on above: Performed By: #### U A ####[facility] Cnd52453 [place], [place] [phone] Leukest Negative Normal Negative [facility] Comment on above: Performed By: #### U A ####[facility] [id number] [place], [place] [phone] Nitrites Negative Normal Negative [facility] Comment on above: Performed By: #### U A ####[facility] Dcw11299 [place], [place] [phone] pH Test strip (U) 6.0 [pH] Normal 5-7 [facility] Comment on above: Performed By: #### U A ####[facility] [id number] [facility], [place] [phone] Protein mass conc Negative Normal Negative [facility] Comment on above: Performed By: #### U A ####[facility] Gnt41513 [facility] HospitalMeagannoelle[facility], [place] [phone] Urine Pito Comment Moderate Normal [facility] Comment on above: Result Comment: MUCO US Performed By: #### U A ####[facility] Wts83426 [facility] [place] [phone] Urine Spec [place] 1.011 Normal 1.005-1.030 [facility] Comment on above: Performed By: #### U A ####[facility] [id number] [place], [place] [phone] Urobilinogen <2.0 Normal 0.0-1.0 [facility] Comment on above: Performed By: #### U A ####[facility] [id number] [place], [place] [phone] WBC 0-5 Normal 0-5 [facility] Comment on above: Performed By: #### U A ####[facility] [id number] [facility], [place] [phone] Vital Signs Date Time Vital Sign Value Performing Clinician Marisabel dumont 04-01-2025 15:51-0400 Body mass index (BMI) [Ratio] 27.8 kg/m2 [employer] DO Work Phone: [facility] 04-01-2025 15:51-0400 Body weight 68.95 kg [employer] Facundo DO Work Phone: [facility] 04-01-2025 15:51-0400 Diastolic blood pressure 64 mm[Hg] [employer] Facundo DO Work Phone: [facility] 04-01-2025 15:51-0400 Systolic blood pressure 110 mm[Hg] [employer] DO Work Phone: [facility] 03-25-2025 15:05-0400 Body mass index (BMI) [Ratio] 27.46 kg/m2 Dagmar Facundo DO Work Phone: [facility] 03-25-2025 15:05-0400 Body weight 68.09 kg Dagmar Facundo DO Work Phone: [facility] 03-25-2025 15:05-0400 Diastolic blood pressure 64 mm[Hg] Dagmar Facundo DO Work Phone: [facility] 03-25-2025 15:05-0400 Systolic blood pressure 104 mm[Hg] Dagmar Facundo DO Work Phone: [facility] 03-18-2025 15:01-0400 Body mass index (BMI) [Ratio] 27.4 kg/m2 Dagmar Facundo DO Work Phone: [facility] 03-18-2025 15:01-0400 Body weight 67.95 kg Dagmar Facundo DO Work Phone: [facility] 03-18-2025 15:01-0400 Diastolic blood pressure 68 mm[Hg] Dagmar Facundo DO Work Phone: [facility] 03-18-2025 15:01-0400 Systolic blood pressure 120 mm[Hg] Dagmar Facundo DO Work Phone: [facility] 03-10-2025 13:30-0400 Body mass index (BMI) [Ratio] 27.44 kg/m2 Natty MEHTA Work Phone: [facility] 03-10-2025 13:30-0400 Body weight 68.04 kg Natty MEHTA Work Phone: [facility] 03-10-2025 13:30-0400 Diastolic blood pressure 70 mm[Hg] Natty MEHTA Work Phone: [facility] 03-10-2025 13:30-0400 Systolic blood pressure 106 mm[Hg] Natty MEHTA Work Phone: [facility] 02-11-2025 14:03-0400 Body mass index (BMI) [Ratio] 26.89 kg/m2 Dagmar Facundo DO Work Phone: [facility] 02-11-2025 14:03-0400 Body weight 66.68 kg Dagmar Facundo DO Work Phone: [facility] 02-11-2025 14:03-0400 Diastolic blood pressure 70 mm[Hg] Dagmar Facundo DO Work Phone: [facility] 02-11-2025 14:03-0400 Systolic blood pressure 108 mm[Hg] Dagmar Facundo DO Work Phone: [facility] 01-28-2025 09:02-0400 Body mass index (BMI) [Ratio] 27.4 kg/m2 Natty Jellico PA Work Phone: [facility] 01-28-2025 09:02-0400 Body weight 67.95 kg Natty Lili PA Work Phone: [facility] 01-28-2025 09:02-0400 Diastolic blood pressure 66 mm[Hg] Natty Jellico PA Work Phone: [facility] 01-28-2025 09:02-0400 Systolic blood pressure 108 mm[Hg] Natty Lili PA Work Phone: [facility] 12-15-2024 09:07-0500 Body mass index (BMI) [Ratio] 25.81 kg/m2 Natty Lili PA Work Phone: [facility] 12-15-2024 09:07-0500 Body weight 64.01 kg Natty Jellico PA Work Phone: [facility] 12-15-2024 09:07-0500 Diastolic blood pressure 70 mm[Hg] Natty Lili PA Work Phone: [facility] 12-15-2024 09:07-0500 Systolic blood pressure 120 mm[Hg] Natty Jellico PA Work Phone: [facility] 11-13-2024 15:17-0500 Body mass index (BMI) [Ratio] 25.42 kg/m2 Natty Jellico PA Work Phone: [facility] 11-13-2024 15:17-0500 Body weight 63.05 kg Natty MEHTA Work Phone: [facility] 11-13-2024 15:17-0500 Diastolic blood pressure 70 mm[Hg] Natty MEHTA Work Phone: [facility] 11-13-2024 15:17-0500 Systolic blood pressure 108 mm[Hg] Natty MEHTA Work Phone: [facility] 09-11-2024 13:48-0500 Body mass index (BMI) [Ratio] 26.12 kg/m2 [facility] 09-11-2024 13:48-0500 Body weight 64.77 kg [facility] Nurse [facility] Encounters Encounter Date Encounter Type Care Provider Facility Start: 04-01-2025 End: 04-01-2025 Office outpatient visit 15 minutes Dagmar Facundo DO Work Phone: [facility] Comment on above: 38 weeks gestation o f ; Third trimester Start: 04-01-2025 End: 04-01-2025 ambulatory DAGMAR FACUNDO Not Available Start: 04-01-2025 End: 04-01-2025 Bamboo flowsheet Dagmar Facundo DO Work Phone: [facility] Start: 04-01-2025 End: 04-01-2025 Bamboo flowsheet Dagmar Facundo DO Work Phone: [facility] Start: 03-25-2025 End: 03-25-2025 Office outpatient visit 15 minutes Dagmar Facundo DO Work Phone: [facility] Comment on above: Third trimester preg dante; 37 weeks gestation of Start: 03-25-2025 End: 03-25-2025 ambulatory DAGMAR FACUNDO Not Available Start: 03-25-2025 End: 03-25-2025 Bamboo flowsheet Dagmar Facundo DO Work Phone: [facility] Start: 03-25-2025 End: 03-25-2025 Bamboo flowsheet Dagmar Facundo DO Work Phone: [facility] Start: 03-18-2025 End: 03-18-2025 Office outpatient visit 15 minutes Dagmar Facundo DO Work Phone: [facility] Comment on above: 36 weeks gestation o f ; Third trimester Start: 03-18-2025 End: 03-18-2025 ambulatory DAGMAR FACUNDO Not Available Start: 03-18-2025 End: 03-18-2025 Bamboo flowsheet Dagmar Facundo DO Work Phone: [facility] Start: 03-18-2025 End: 03-18-2025 Bamboo flowsheet Dagmar Facundo DO Work Phone: [facility] Start: 03-10-2025 End: 03-10-2025 Bamboo flowsheet Natty Lin PA Work Phone: [facility] Start: 03-10-2025 [...] 01-28-2025 Bamboo flowsheet Natty MEHTA Work Phone: [facility] Start: 01-28-2025 End: 01-28-2025 Bamboo flowsheet Natty MEHTA Work Phone: [facility] Start: 01-28-2025 End: 01-28-2025 Office outpatient visit 15 minutes Natty MEHTA Work Phone: [facility] Comment on above: size inconsist ent with dates (Primary Dx); Second trimester ; 28 weeks gestation of Start: 01-28-2025 End: 01-28-2025 ambulatory NATTY LIN Not Available Start: 01-12-2025 End: 01-12-2025 ambulatory DAGMAR FACUNDO Not Available Start: 12-15-2024 End: 12-15-2024 Bamboo flowsheet Natty MEHTA Work Phone: [facility] Start: 12-15-2024 End: 12-15-2024 Bamboo flowsheet Natty MEHTA Work Phone: [facility] Start: 12-15-2024 End: 12-15-2024 Periodic preventive med est patient 18-39 yrs Natty MEHTA Work Phone: [facility] Comment on above: 22 weeks gestation o f ; Second trimester ; Diabetes mellitus screening Start: 12-15-2024 End: 12-15-2024 ambulatory NATTY LIN Not Available Start: 11-13-2024 End: 11-13-2024 Patient encounter procedure Natty MEHTA Work Phone: [facility] Start: 11-13-2024 End: 11-13-2024 Periodic preventive med est patient 18-39 yrs Natty MEHTA Work Phone: [facility] Comment on above: Screening, , for anatomic survey; Well woman exam with routine gynecological exam; Second trimester ; 18 weeks gestation of ; Vaginal discharge; STD exposure Start: 11-13-2024 End: 11-13-2024 ambulatory NATTY LIN Not Available Start: 11-13-2024 End: 11-13-2024 Bamboo flowsheet Natty MEHTA Work Phone: [facility] Start: 11-13-2024 End: 11-19-2024 Bamboo flowsheet Natty MEHTA Work Phone: [facility] Start: 11-13-2024 End: 11-19-2024 Clinisync Result Encounter Natty MEHTA Work Phone: [facility] Unsolicited Start: 11-13-2024 End: 11-14-2024 [...] 04-14-2024 Emergency department patient visit RACHELLE Bella [facility] Start: 03-15-2023 End: 03-15-2023 ambulatory STEPHANIE LIN Facility: Start: 06-16-2018 End: 06-17-2018 Emergency department patient visit JULY COLEMAN [facility] Procedures Date Procedure Procedure Detail Performing Clinician Start: 04-01-2025 Urnls dip stick/tabl et rgnt non-auto w/o micrscp Dagmar Facundo DO Work Phone: Start: 03-25-2025 Urnls dip stick/tabl et rgnt non-auto w/o micrscp Dagmar Facundo DO Work Phone: Start: 03-18-2025 Urnls dip stick/tabl et rgnt non-auto w/o micrscp Dagmar Facundo DO Work Phone: Start: 03-10-2025 Urnls dip stick/tabl et rgnt non-auto w/o micrscp Natty MEHTA Work Phone: Start: 02-17-2025 MLR HEMOGLOBIN A1C [...] Influenza vaccination Influenz a Vaccine (Season Ended) [facility] Start: 04-01-2025 End: 04-01-2025 Patient encounter procedure 04/01/2025 3:40 PM EDT Routine [facility] [address] [facility] [place] [phone] Dagmar Loredo, DO [address] [place] [address] Arrived [facility] Comment on above: Arrived Start: 03-25-2025 End: 03-25-2025 Patient encounter procedure [facility] Comment on above: Arrived Start: 03-18-2025 End: 03-18-2025 Patient encounter procedure 03/18/2025 2:50 PM EDT Routine [facility] [address] [place] [phone] Dagmar Loredo, DO [address] [place] [address] Arrived [facility] Comment on above: Arrived Start: 03-18-2025 End: 03-18-2026 CULTURE, GROUP B STREP WITH SUSCEPTIBLITY CULTURE, GROUP B STREP WITH SUSCEPTIBLITY Lab Routine Third trimester Expected: 03/18/2025, Expires: 03/18/2026 [facility] Work Phone: Comment on above: Expected: 03/18/2025 , Expires: 03/18/2026 Start: 02-25-2025 End: 02-25-2025 Patient encounter procedure 02/25/2025 3:20 PM EDT Routine [facility] [address] [facility] [place] [phone] Natty Lin PA [address] [facility] [place] [address] [facility] Start: 02-11-2025 End: 02-11-2025 Patient encounter procedure 02/11/2025 1:40 PM EDT Routine [facility] [address] [facility] [place] [phone] Dagmar Loredo DO [address] [place] [address] [facility] Start: 02-05-2025 End: 02-05-2025 Professional / ancillary services management 02/05/2025 3:00 PM EDT Ancillary Procedure [facility] [address] [place] [phone] [facility] Start: 01-28-2025 End: 05-30-2025 US for US OB follow up transabdominal approach Imaging Routine size inconsistent with dates Expected: 01/28/2025, Expires: 05/30/2025 [facility] Work Phone: Comment on above: Expected: 01/28/2025 , Expires: 05/30/2025 Start: 01-28-2025 End: 01-28-2025 Patient encounter procedure 01/28/2025 9:00 AM EDT Routine [facility] [address] [facility] [facility] [place] [phone] Natty Lin PA [address] [place], [place] [phone] Arrived [facility] Comment on above: Arrived Start: 01-12-2025 End: 01-12-2025 Patient encounter procedure 01/12/2025 9:50 AM EDT Routine [facility] [address] [place] [address] Dagmar Loredo, DO [address] [place] [address] [facility] Start: 12-15-2024 End: 12-15-2025 CBC panel - Blood by Automated count CBC Lab Routine Diabetes mellitus screening Expected: 12/15/2024 (Approximate), Expires: 12/15/2025 [facility] Work Phone: Comment on above: Expected: 12/15/2024 (Approximate), Expires: 12/15/2025 Start: 12-15-2024 End: 12-15-2025 Measurement of glucose 1 hour after glucose challenge for glucose tolerance test Glucose tolerance, 1 hour Lab Routine Diabetes mellitus screening Expected: 12/15/2024 (Approximate), Expires: 12/15/2025 [facility] Comment on above: Expected: 12/15/2024 (Approximate), Expires: 12/15/2025 Start: 12-15-2024 End: 12-15-2024 Patient encounter procedure 12/15/2024 10:20 AM EST Routine [facility] [address] [place] [phone] Natty Lin PA [address] [facility] [place] [address] Arrived [facility] Comment on above: Arrived Start: 12-11-2024 End: 12-11-2024 Patient encounter procedure 12/11/2024 10:50 AM EST Routine [facility] [address] [facility] [place] [phone] Dagmar Loredo, DO [address] [place] [address] [facility] Start: 11-13-2024 End: 11-13-2024 Patient encounter procedure 11/13/2024 2:50 PM EST Routine [facility] [address] [place] [phone] Natty Lin PA [address] [facility] [address] [place], [place] [phone] Arrived [facility] Comment on above: [...] AM EST Routine [facility] [address] [place] [phone] Dagmar Loredo DO [address] [facility] [place] [address] [facility] Start: 09-11-2024 End: 09-11-2025 ABO/Rh ABO/Rh Lab Routine Missed menses , unspecified gestational age Expected: 09/11/2024 (Approximate), Expires: 09/11/2025 [facility] Comment on above: Expected: 09/11/2024 (Approximate), Expires: 09/11/2025 Start: 09-11-2024 End: 09-11-2025 Blood type and Indirect antibody screen panel - Blood Type and screen Lab Routine Missed menses , unspecified gestational age Expected: 09/11/2024 (Approximate), Expires: 09/11/2025 [facility] Work Phone: Comment on above: Expected: 09/11/2024 (Approximate), Expires: 09/11/2025 Start: 09-11-2024 End: 09-11-2025 Drugs of abuse panel - Urine by Screen method Rapid drug screen, urine Lab Routine , unspecified gestational age Encounter for supervision of normal first in first trimester Expected: 09/11/2024 (Approximate), Expires: 09/11/2025 [facility] Comment on above: Expected: 09/11/2024 (Approximate), Expires: 09/11/2025 Start: 09-11-2024 End: 09-11-2025 US Pelvis transvaginal US OB transvaginal Imaging Routine Missed menses Expected: 09/11/2024 (Approximate), Expires: 09/11/2025 [facility] Comment on above: Expected: 09/11/2024 (Approximate), Expires: 09/11/2025 Start: 06-22-2024 Influenza vaccination Influenza Vacc ine (#1) [facility] Bacteria identified in Urine by Culture Urine culture Microbiology Routine Missed menses Ordered: 09/11/2024 [facility] Comment on above: Ordered: 09/11/2024 CBC W Auto Different ial panel - Blood CBC and differential Lab Routine Missed menses , unspecified gestational age Ordered: 09/11/2024 [facility] Comment on above: Ordered: 09/11/2024 CHLAMYDIA TRACHOMATI S (GENITO/STI) CHLAMYDIA TRACHOMATIS (GENITO/STI) Lab Routine STD exposure Ordered: 11/13/2024 [facility] Comment on above: Ordered: 11/13/2024 Cytology Cervical or vaginal smear or scraping study Pap Smear Pathology and Cytology Routine Well woman exam with routine gynecological exam Ordered: 11/13/2024 [facility] Comment on above: Ordered: 11/13/2024 Hemoglobin A1c/Hemoglobin.total in Blood Hemoglobin A1c Lab Routine Missed menses , unspecified gestational age Ordered: 09/11/2024 [facility] Comment on above: Ordered: 09/11/2024 Hemoglobin A1c/Hemoglobin.total in Blood Hemoglobin A1c Lab Routine Diabetes mellitus screening Ordered: 02/11/2025 [facility] Work Phone: Comment on above: Ordered: 02/11/2025 Hepatitis B virus surface Ag [Presence] in Serum or Plasma by Immunoassay Hepatitis B surface antigen Lab Routine Missed menses , unspecified gestational age Ordered: 09/11/2024 [facility] Comment on above: Ordered: 09/11/2024 Hepatitis C virus Ab [Presence] in Serum or Plasma by Immunoassay Hepatitis C antibody Lab Routine Missed menses , unspecified gestational age Ordered: 09/11/2024 [facility] Comment on above: Ordered: 09/11/2024 HIV-1/HIV-2 antigen/antibody combination immunoassay HIV-1 and HIV-2 antibodies Lab Routine Missed menses , unspecified gestational age Ordered: 09/11/2024 [facility] Comment on above: Ordered: 09/11/2024 Neisseria gonorrhoea e DNA [Presence] in Unspecified specimen by KRISTI with probe detection Neisseria gonorrhea DNA probe, direct Lab Routine STD exposure Ordered: 11/13/2024 [facility] Comment on above: Ordered: 11/13/2024 Reagin Ab [Presence] in Serum by RPR RPR Lab Routine Missed menses , unspecified gestational age Ordered: 09/11/2024 [facility] Comment on above: Ordered: 09/11/2024 Rubella antibody, IgG Rubella an tibody, IgG Lab Routine Missed menses , unspecified gestational age Ordered: 09/11/2024 [facility] Comment on above: Ordered: 09/11/2024 SURESWAB(R) ADVANCED VAGINITIS PLUS, TMA SURESWAB(R) ADVANCED VAGINITIS PLUS, TMA Pathology and Cytology Routine Vaginal discharge Ordered: 11/13/2024 [facility] Work Phone: Comment on above: Ordered: 11/13/2024 Payers Date Payer Category Payer Medicaid (Managed Care) [employer] [id number] 2003 Unknown [id number] 2.16.840.1.302038.3.579.2. 593 2003 Unknown [id number] 2.16.840.1.566725.3.579.2. 1286 2003 Unknown [id number] 2.16.840.1.317524.3.579.2. 1259 2003 Unknown [id number] 2.16.840.1.600877.3.579.2. 1259 2003 Unknown [id number] 2.16.840.1.543801.3.579.2. 1259 2003 Unknown [id number] 2.16.840.1.798592.3.579.2. 1259 2003 Unknown [id number] 2.16.840.1.540705.3.579.2. 1259 2003 Unknown [id number] 2.16840.1.974179.3.579.2. 1259 2003 Unknown [id number] 2.16.840.1.462952.3.579.2. 1259 2003 Unknown [id number] 2.16.840.1.987305.3.579.2. 1259 2003 Unknown [id number] 2.16840.1.075460.3.579.2. 1259 2003 Unknown [id number] 2.16840.1.908610.3.579.2. 1259 2003 Unknown [id number] 2.16.840.1.880148.3.579.2. 9 2003 Unknown [id number] 2.16840.1.946142.3.579.2. 1259 1959 Unknown [id number] Social History Date Type Detail Facility Tobacco smoking stat [facility] Tobacco smoking consumption unknown [facility] Start: 07-23-2024 [facility] Start: 2005 Sex assigned at Not on file [facility] Gender identity Not on file [facility] are Clinical Notes 09-11-2024 to 04-01-2025 Bess Zapien, REI - 04/01/2025 3:40 PM JANINE Fraser - 03/25/2025 3:00 PM EDTEduarda Ugarte, VANITA - 03/18/2025 2:50 PM JANINE Fraser - 03/10/2025 1:00 PM JANINE Fraser - 01/28/2025 9:00 AM EDT Note Date & Type Note Facility 04-01-2025 History of Presen t illness Narrative Reason for Appointment: Patient ID: Maciej Barahona is a 19 y.o. female who presents [...] nursing note reviewed. Exam conducted with a camp boss present. Vitals: Estimated body mass index is 27.8 kg/m as calculated from the following: Height [...] Dagmar Loredo DO documented in this encounter [facility] 03-25-2025 History of Presen t illness Narrative Reason for Appointment: Patient ID: Maciej Barahona is a 19 y.o. female who presents [...] reviewed. Vitals: Estimated body mass index is 27.46 kg/m as calculated from the following: Height as of 23: 5' 2 . Weight as of this encounter: 150 lb 1.9 oz. BP: 104/64 Patient's last menstrual period was 07/03/2024. ASSESSMENT & PLAN ICD-10-CM 1. Third trimester Z34.93 POCT urinalysis dipstick manually resulted 2. 37 weeks gestation of Z3A.37 POCT urinalysis dipstick manually resulted Return OB: Patient presents today for a routine obstetrics appointment. Patient is currently 37w0d . Patient states she is doing well [...] Documented by JANINE Reynoso on behalf of: Dagmar Loredo DO documented in this encounter [facility] 03-18-2025 History of Presen t illness Narrative Reason for Appointment: Patient ID: Maciej Barahona is a 19 y.o. female who presents [...] nursing note reviewed. Exam conducted with a camp boss present. Vitals: Estimated body mass index is [...] Dagmar Loredo DO documented in this encounter [facility] 03-10-2025 History of Presen t illness Narrative Reason for Appointment: Patient ID: Maciej Barahona is a 19 y.o. female who presents [...] of: JANINE Reynoso documented in this encounter [facility] 02-11-2025 History of Presen t illness Narrative Reason for Appointment: Patient ID: Maciej Barahona is a 19 y.o. female who presents [...] nursing note reviewed. Exam conducted with a camp boss present. Vitals: Estimated body mass index is [...] Dagmar Loredo DO documented in this encounter [facility] 01-28-2025 History of Presen t illness Narrative Reason for Appointment: Patient ID: Maciej Barahona is a 19 y.o. female who presents [...] of: JANINE Reynoso documented in this encounter [facility] 11-13-2024 History of Presen t illness Narrative Reason for Appointment: Patient ID: Maciej Barahona is a 19 y.o. female who presents [...] nursing note reviewed. Exam conducted with a camp boss present. Vitals: Estimated body mass index is [...] obtained without difficulty and patient was given [facility] order to have obtained. Orders Placed This Encounter Procedures US OB 14+ weeks anatomy scan CHLAMYDIA TRACHOMATIS (GENITO/STI) Neisseria gonorrhea DNA probe, direct Alpha fetoprotein, maternal Follow Up: Patient is to return to our office in 4 weeks for routine OB appointment Documented by JANINE Reynoso on behalf of: JANINE Reynoso documented in this encounter [facility] 10-06-2024 History of Presen t illness Narrative Reason for Appointment: Patient ID: Maciej Barahona is a 19 y.o. female who presents [...] nursing note reviewed. Exam conducted with a camp boss present. Vitals: Estimated body mass index is [...] or undercooked meat, and stay away from [facility]. Patient has been consulted regarding any further do's and don'ts of . Patient voiced understanding and all questions and concerns were answered. Patients OB Intake Labs were reprinted and given along with [place] orders. Orders Placed This Encounter Procedures POCT urinalysis dipstick manually resulted Follow Up: Patient is to return in 4 weeks for routine OB appointment. Documented by Marisol Arellano LPN on behalf of: Dagmar Loredo DO documented in this encounter [facility] 09-11-2024 History of Presen t illness Narrative Reason for Appointment: Patient ID: Maciej Barahona is a 18 y.o. female who presents [...] or undercooked meat, and stay away from [facility]. Patient has also been advised to [...] state, incidental [facility] Diagnosis Third trimester state, incidental 37 weeks gestation of documented in this [facility]* Diagnosis 38 weeks gestation of Third trimester state, incidental documented [facility] this [facility]* JANINE Reynoso - 12/15/2024 10:20 AM EST Reason for Appointment: Patient ID: Maciej Barahona is a 19 y.o. female who presents [...] section and content) DATE CREATED AUTHOR [facility] DATE CREATED AUTHOR AUTHOR'S ORGANIZ ATION 03/30/2023 [facility] DATE CREATED AUTHOR AUTHOR'S ORGANIZ ATION 04/14/2024 [facility] DATE CREATED AUTHOR AUTHOR'S ORGANIZ ATION 04/04/2025 [facility] EPIC Reason for Visit (unrecogniz ed section and content) Reason Comments Amenorrhea Reason Comments Routine Visit Reason Comments Routine Visit [facility] Women Visit STI Screening Care Teams (unrecognized sec tion and content) Certified Welder Relationship Specialty Start Date End Date Natty Lin PA [address] [place] [address] [facility] 01/21/24 Certified Welder Relationship Specialty Start Date End Date Natty Lin PA [address] [place] [address] [facility] 01/21/24 Certified Welder Relationship Specialty Start Date End Date Natty Lin PA [address] [place] [address] [place] [address] [facility] 01/21/24 Certified Welder Relationship Specialty Start Date End Date Natty Lin PA [address] [place] [address] [place] [address] [facility] 01/21/24 Certified Welder Relationship Specialty Start Date End Date Natty Lin PA [address] [place] [address] [place] [address] [facility] 01/21/24 Certified Welder Relationship Specialty Start Date End Date Natty Lin PA [address] [place] [address] [facility] 01/21/24 Certified Welder Relationship Specialty Start Date End Date Natty Lin PA [address] [place] [address] [facility] 01/21/24 Certified Welder Relationship Specialty Start Date End Date Natty Lin PA [address] [place] [address] [facility] 01/21/24 Certified Welder Relationship Specialty Start Date End Date Natty Lin PA [address] [place] [address] [facility] 01/21/24 Certified Welder Relationship Specialty Start Date End Date Natty Lin PA [address] [place] [address] [facility] 01/21/24 FOR RECORDS PERTAINING TO PATIENTS WHO [...] BE BASED ON THE PRIMARY CLINICAL RECORDS. [employer] [facility]. provides no warranty or guarantee of the accuracy or completeness of information in this document.
--- OUTSIDE RECORDS SUMMARY | 2025-04-08 05:01 | XMS_ITS | Encounter Summary ---
Author Organization [facility] Address [address] [place] [address] Care Team Providers Care Middleware Engineer Name Role Phone Natty Pearson Unavailable Encounter Details Date Type Department Care Team (Late st Contact Info) Description 03/25/2025 Bamboo flowsheet [facility] [address] [place] [address] Isael Loredo DO [address] [facility] [address] Berta [place], [facility]11 Social History Tobacco Use Types Packs/Day Years Used Date Smoking Tobacco: Never Assessed Estimated Date of Delivery Comme nts Yes 04/15/2025 Based on Ultraso und Sex and Gender Information Value Date Recorded Sex Assigned at Not on file Legal Sex Female 1:18 PM EDT Gender Identity Not on file Sexual Orientation Not on file documented as of this encounter Plan of Treatment Not on file documented as of this encounter Visit Diagnoses Not on filedocumented in this encounter Care Teams Middleware Engineer Relationship Specialty Start Date End Date Natty Pearson PA [address] [place], [facility]11 PCP - [facility] 01/21/24 documented as of this encounter
--- OUTSIDE RECORDS SUMMARY | 2025-04-08 05:01 | XMS_ITS | Encounter Summary ---
Author Organization [facility] Address [address] [place] [address] Care Team Providers Care Oracle Ebs Consultant Name Role Phone Natty Pearson Unavailable Encounter Details Date Type Department Care Team (Late st Contact Info) Description 04/02/2025 Abstract [facility] [address] [place] [id number] Isael Loredo DO [address] [place], [facility] Social History Tobacco Use Types Packs/Day Years [...] on filedocumented in this encounter Care Teams Oracle Ebs Consultant Relationship Specialty Start Date End Date Natty Pearson PA [address] [place], [facility] PCP - [facility] 01/21/24 documented as of this encounter
--- OUTSIDE RECORDS SUMMARY | 2025-04-08 05:01 | XMS_ITS | Encounter Summary ---
Author Organization [facility] Address [address] [place] [address] Care Team Providers Care Bariatric Physician Name Role Phone Natty Pearson Unavailable Encounter Details Date Type Department Care Team (Late st Contact Info) Description 04/01/2025 Bamboo flowsheet [facility] [address] [place] [address] Isael Loredo DO [address] [facility] [address] Berta [place], [facility]11 Social History Tobacco Use Types [...] on filedocumented in this encounter Care Teams Bariatric Physician Relationship Specialty Start Date End Date Natty Pearson PA [address] [facility] [address] [facility] [address] [place], [facility]11 PCP - [facility] 01/21/24 documented as of this encounter
--- OUTSIDE RECORDS SUMMARY | 2025-04-08 05:01 | XMS_ITS | Encounter Summary ---
Author Organization [facility] Address [address] [place] [address] Care Team Providers Care Manufacturing Quality Engineer Name Role Phone Robbi Yamile Montiel MECHANICAL ENERGY ENGINEER Unavailable [phone] Natty Pearson Unavailable Encounter Details Date Type Department Care Team (Late st Contact Info) Description 09/27/2023 Clinisync Result Encounter [facility] External Department Unsolicited Phillip Martínez CNM [address] [place], [place] [address] Social History Tobacco Use Types Packs/Day Years Used Date Smoking Tobacco: Never Assessed Comments Yes Sex and Gender Information Value Date Recorded Sex Assigned at Not on file Legal Sex Female 1:18 PM EDT Gender Identity Not on file Sexual Orientation Not on file documented as of this encounter Plan of Treatment Not on file documented as of this encounter Procedures Procedure Name Priority Date/Time Associated Diagnosis Comments US AMNIOTIC FLUID VOLUME 09/27/2023 8:43 AM EST documented in this encounter Results * US AMNIOTIC FLUID VOLUME (09/27/2023 8:43 AM EST) Anatomical Region Laterality Modality Radiographic Elvia ging 09/27/2023 8:43 AM EST Narrative 09/27/2023 8:46 AM EST The [address] [address] Ultrasound Report Signed Patient: CAROLE BARAHONA MR#: [id number] : 2005 Acct:[id number] Age/Sex: 18 / F ADM Date: Loc: [facility] 250-[address]: PHILLIP MARTÍNEZ APRN, CNM Ordering Physician: PHILLIP MARTÍNEZ APRN, CNM Date of Service: 09/27/23 Procedure(s): US OB amniotic fluid vol Accession Number(s): [id number] cc: PHILLIP MARTÍNEZ APRN, CNM; Physician,Non-Staff MJúnior. The [place] [address] Patient Name: CAROLE BARAHONA MRN: [facility]:[id number] date: 2005 Sex: F Assigned Patient Location: [facility] Current Patient Location: [facility] Accession/Order Number: [id number] Exam Date: 09/27/2023 08:10 Report Date: 09/27/2023 08:43 At the request of: PHILLIP MARTÍNEZ Procedure: US OB amniotic fluid vol PROCEDURE: US OB amniotic fluid vol, 09/27/2023 8:10 AM EST CLINICAL INDICATIONS: Encounter for third trimester , possible premature rupture of membranes, symptoms for 3 hours 1 para 0 Expected gestational age: 37 weeks 3 days Expected KIYA: 10/15/2023 COMPARISON: 08/28/2023 biophysical profile assessment TECHNIQUE: Limited third trimester obstetric sonogram, amniotic fluid assessment. FINDINGS: Single living intrauterine identified, cephalic presentation. body, cardiac activity is noted, heart rate 134 bpm. Amniotic fluid index 11.3 cm, maximum vertical pocket 6.5 cm. 5-95th percentile. biometry: Not performed. anatomic assessment: Not performed. Anterior placenta, incompletely assessed. US/US OB amniotic fluid vol IMPRESSION: 1. Single living intrauterine , cephalic presentation 2. 11.3 cm amniotic fluid index, maximum vertical pocket 6.5 cm, 5-95th percentile Electronically authenticated by: TORIN MANLEY Date: 09/27/2023 08:43 Dictated By: Torin Manley M.D. Signed By: 09/27/23845 DD/ 2 TD/TT: Fifth Hand: Procedure Note Radiology, Radiologist, - 09/27/2023 [place] [address] Ultrasound Report Signed Patient: CAROLE BARAHONA RMR#: [id number] : 2005Acct:[id number] Age/Sex: 18 / FADM Date: Loc: [facility] 250-[address]: PHILLIP MARTÍNEZ APRN, CNM Ordering Physician: PHILLIP MARTÍNEZ APRN, CNM Date of Service: 09/27/23 Procedure(s): US OB amniotic fluid vol Accession Number(s): [id number] cc: PHILLIP MARTÍNEZ APRN, CNM; Physician,Non-Staff M.DShaun [place] [address] Patient Name: CAROLE BARAHONA MRN: [facility]:[id number] date: 2005 Sex: F Assigned Patient Location: [facility] Current Patient Location: [facility] Accession/Order Number: [id number] Exam Date: 09/27/2023 08:10 Report Date: 09/27/2023 08:43 At the request of: PHILLIP MARTÍNEZ Procedure: US OB amniotic fluid vol PROCEDURE: US OB amniotic fluid vol, 09/27/2023 8:10 AM EST CLINICAL INDICATIONS: Encounter for third trimester , possible premature rupture of membranes, symptoms for 3 hours 1 para 0 Expected gestational age: 37 weeks 3 days Expected KIYA: 10/15/2023 COMPARISON: 08/28/2023 biophysical profile assessment TECHNIQUE: Limited third trimester obstetric sonogram, amniotic fluid assessment. FINDINGS: Single living intrauterine identified, cephalic presentation. body, cardiac activity is noted, heart rate 134 bpm. Amniotic fluid index 11.3 cm, maximum vertical pocket 6.5 cm. 5-95th percentile. biometry: Not performed. anatomic assessment: Not performed. Anterior placenta, incompletely assessed. US/US OB amniotic fluid vol IMPRESSION: 1. Single living intrauterine , cephalic presentation 2. 11.3 cm amniotic fluid index, maximum vertical pocket 6.5 cm, 5-95th percentile Electronically authenticated by: TORIN MANLEY Date: 09/27/2023 08:43 Dictated By: Torin Manley M.D. Signed By:09/27/23845 DD/ 2 TD/TT: Fifth Hand: Phillip Martínez CNM IMG XR PROCEDURES Final Resu lt documented in this encounter Visit Diagnoses Not on filedocumented in this encounter Care Teams Manufacturing Quality Engineer Relationship Specialty Start Date End Date Yamile Culp NP PCP - [facility] 04/21/23 Natty Pearson PA [address] [place] [address] [place] [address] PCP - [facility] 01/21/24 documented as of this encounter
--- OUTSIDE RECORDS SUMMARY | 2025-04-08 05:02 | XMS_ITS | Encounter Summary ---
Author Organization [facility] Address [address] [place] [address] Care Team Providers Care Viscosity Inspector Name Role Phone Yamile Culp WAREHOUSE FOREMAN Unavailable [phone] Natty Pearson Unavailable Encounter Details Date Type Department Care Team (Late st Contact Info) Description 08/27/2023 Clinisync Result Encounter [facility] External Department Unsolicited Dagmar Loredo, DO [address] [facility] [place] [address] Social History Tobacco Use Types Packs/Day Years [...] Name Priority Date/Time Associated Diagnosis Comments US OB CERVICAL LENGTH 08/27/2023 3:14 PM EST documented in this encounter Results * US OB CERVICAL LENGTH (08/27/2023 3:14 PM EST) Anatomical Region Laterality Modality Other 08/27/2023 3:14 PM EST Narrative 08/27/2023 3:14 PM EST The [address] [address] Ultrasound Report Signed Patient: CAROLE BARAHONA MR#: [id number] : 2005 Acct:[id number] Age/Sex: 17 / F ADM Date: 08/27/23 Loc: [facility] 254-[address]: Dagmar Loredo D.O. Ordering Physician: Dagmar Loredo D.O. Date of Service: 08/27/23 Procedure(s): US OB cervical length Accession Number(s): [id number] cc: Dagmar Loredo D.O.; Physician,Non-Staff Louise The [place] [address] Patient Name: CAROLE BARAHONA MRN: [id number] date: 2005 Sex: F Assigned Patient Location: [facility] Current Patient Location: [facility] Accession/Order Number: [id number] Exam Date: 08/27/2023 14:08 Report Date: 08/27/2023 15:14 At the request of: DAGMAR LOREDO Procedure: US OB cervical length EXAM: US OB placenta, US OB cervical length HISTORY: abdominal pain/spotting COMPARISON: None. TECHNIQUE: Transabdominal images FINDINGS: position: Cephalic presentation, longitudinal lie Number of umbilical arteries: 2 Placenta: Anterior, grade 0. The cord inserts into the placenta 3.5 cm from the placental edge. Area of anechoic echogenicity at the placental myometrial junction measuring 1.4 x 0.6 cm Heart rate: 153 beats minute Cervix: 3.2 cm, closed Findings discussed with Dr. Loredo by telephone 3:13 PM US/US OB cervical length IMPRESSION: Closed cervix measuring 3.2 cm in length Area of anechoic echogenicity of the placental myometrial interface, while this could represent a deep placental rivas, consideration should be given to a small retroplacental hematoma Electronically authenticated by: AFTAB HUANG Date: 08/27/2023 15:14 Dictated By: Aftab Huang M.D. Signed By: 08/27/23 1516 DD/ 1514 TD/TT: Can Tester: Procedure Note Radiology, Radiologist, MD - 08/27/2023 [place] [address] Ultrasound Report Signed Patient: CAROLE BARAHONA RMR#: [id number] : 2005Acct:[id number] Age/Sex: 17 / FADM Date: 08/27/23 Loc: [facility] 254-1 Attending : Dagmar Loredo D.O. Ordering Physician: Dagmar Loredo D.O. Date of Service: 08/27/23 Procedure(s): US OB cervical length Accession Number(s): [id number] cc: Dagmar Loredo D.O.; Physician,Non-Staff Louise [place] [id number] Patient Name: CAROLE BARAHONA MRN: [facility]:[id number] date: 2005 Sex: F Assigned Patient Location: [facility] Current Patient Location: [facility] Accession/Order Number: [id number] Exam Date: 08/27/2023 14:08 Report Date: 08/27/2023 15:14 At the request of: DAGMAR LOREDO Procedure: US OB cervical length EXAM: US OB placenta, US OB cervical length HISTORY: abdominal pain/spotting COMPARISON: None. TECHNIQUE: Transabdominal images FINDINGS: position: Cephalic presentation, longitudinal lie Number of umbilical arteries: 2 Placenta: Anterior, grade 0. The cord inserts into the placenta 3.5 cmfrom the placental edge. Area of anechoic echogenicity at the placental myometrial junction measuring 1.4 x 0.6 cm Heart rate: 153 beats minute Cervix: 3.2 cm, closed Findings discussed with Dr. Loredo by telephone 3:13 PM US/US OB cervical length IMPRESSION: Closed cervix measuring 3.2 cm in length Area of anechoic echogenicity of the placental myometrial interface, while this could represent a deep placental rivas, consideration should be given to a small retroplacental hematoma Electronically authenticated by: AFTAB HUANG Date: 08/27/2023 15:14 Dictated By: Aftab Huang M.D. Signed By:08/27/23 1516 DD/ 1514 TD/TT: Can Tester: us Dagmar Loredo DO [facility] Final Result documented in this encounter Visit Diagnoses Not on filedocumented in this encounter Care Teams Viscosity Inspector Relationship Specialty Start Date End Date Yamile Culp NP [facility] 04/21/23 Natty Pearson PA [address] [place] [address] [place] [address] [facility] 01/21/24 documented as of this encounter
--- OUTSIDE RECORDS SUMMARY | 2025-04-08 05:02 | XMS_ITS | Encounter Summary ---
Author Organization [facility] Address [address] [place] [address] Care Team Providers Care Tax Examiner Name Role Phone Yamile Culp SMALL BUSINESS BANKING OFFICER Unavailable [phone] Natty Pearson Unavailable Encounter Details Date Type Department Care Team (Late st Contact Info) Description 04/11/2023 Abstract [facility] B[facility] OB [address] [facility] [address] Isael Loredo DO [address] [facility] [address] Berta [place], [place] [address] Social History Tobacco Use Types Packs/Day Years [...] on filedocumented in this encounter Care Teams Tax Examiner Relationship Specialty Start Date End Date Yamile Culp SMALL BUSINESS BANKING OFFICER PCP - [facility] CLOTH EXAMINER MACHINE 04/21/23 Natty Pearson PA [address] [facility] [address] [place], [place] [id number] PCP - [facility] 01/21/24 documented as of this encounter
--- OUTSIDE RECORDS SUMMARY | 2025-04-08 05:02 | XMS_ITS | Encounter Summary ---
Author Organization [facility] Address [address] [place] [address] Care Team Providers Care Back Pad Inspector Name Role Phone Natty Pearson Unavailable Encounter Details Date Type Department Care Team (Late st Contact Info) Description 09/12/2024 Clinisync Result Encounter [facility] External Department Unsolicited Dagmar Loredo DO [address] [place] [address] [place] [address] Social History Tobacco Use Types [...] Priority Date/Time Associated Diagnosis Comments US OB TRANSVAGINAL 09/12/2024 5: 06 AM EST documented in this encounter Results * US OB TRANSVAGINAL (09/12/2024 5:06 AM EST) Anatomical Region Laterality Modality Other 09/12/2024 5:06 AM EST Narrative 09/12/2024 5:08 AM EST The [address] [address] Ultrasound Report Signed Patient: CAROLE BARAHONA MR#: [id number] : 2005 Acct:[id number] Age/Sex: 18 / F ADM Date: 09/11/24 Loc: [facility] Attending Dr: Dagmar Loredo D.O. Ordering Physician: Dagmar Loredo D.O. Date of Service: 09/11/24 Procedure(s): US OB transvaginal Accession Number(s): [id number] cc: Dagmar Loredo D.O.; Physician,Non-Staff Louise The [place] [id number] Patient Name: CAROLE BARAHONA MRN: [id number] date: 2005 Sex: F Assigned Patient Location: [facility] Current Patient Location: Accession/Order Number: [id number] Exam Date: 09/11/2024 12:37 Report Date: 09/12/2024 05:06 At the request of: DAGMAR LOREDO Procedure: US OB transvaginal EXAMINATION: US OB transvaginal HISTORY: MISSED MENSES COMPARISON: No relevant comparison available. FINDINGS: GESTATIONAL SAC: Present and normal appearing. YOLK SAC: Present and normal appearing. POLE: Present and normal appearing. CARDIAC: Present. UTERUS: Tiny subchorionic hematoma. OVARIES: Right: Normal. Left: Corpus lutein cyst. CERVIX: 3.6 cm in length and closed. CUL-DE-SAC: Normal. OTHER: None. AGE BY LMP: 10 weeks 0 days KIYA BY LMP: 04/09/2025 AGE BY US CRL: 9 weeks 1 day KIYA BY US CRL: 04/15/2025 US/US OB transvaginal IMPRESSION: 1. Single live intrauterine . Electronically authenticated by: CON JOHNSON Date: 09/12/2024 05:06 Dictated By: Con Johnson M.D. Signed By: 09/12/24 0508 DD/ 050 TD/TT: Service Observer Chief: Procedure Note Radiology, Radiologist, MD - 09/12/2024 [place] [address] Ultrasound Report Signed Patient: CAROLE BARAHONA RMR#: [id number] : 2005Acct:[id number] Age/Sex: 18 / FADM Date: 09/11/24 Loc: [facility] Attending Dr: Dagmar Loredo D.O. Ordering Physician: Dagmar Loredo D.O. Date of Service: 09/11/24 Procedure(s): US OB transvaginal Accession Number(s): [id number] cc: Dagmar Loredo D.O.; Physician,Non-Staff Louise [address] [address] Patient Name: CAROLE BARAHONA MRN: [facility]:[id number] date: 2005 Sex: F Assigned Patient Location: [facility] Current Patient Location: Accession/Order Number: [id number] Exam Date: 09/11/2024 12:37 Report Date: 09/12/2024 05:06 At the request of: DAGMAR LOREDO Procedure: US OB transvaginal EXAMINATION: US OB transvaginal HISTORY: MISSED MENSES COMPARISON: No relevant comparison available. FINDINGS: GESTATIONAL SAC: Present and normal appearing. YOLK SAC: Present and normal appearing. POLE: Present and normal appearing. CARDIAC: Present. UTERUS: Tiny subchorionic hematoma. OVARIES: Right: Normal. Left: Corpus lutein cyst. CERVIX: 3.6 cm in length and closed. CUL-DE-SAC: Normal. OTHER: None. AGE BY LMP: 10 weeks 0 days KIYA BY LMP: 04/09/2025 AGE BY US CRL: 9 weeks 1 day KIYA BY US CRL: 04/15/2025 US/US OB transvaginal IMPRESSION: 1. Single live intrauterine . Electronically authenticated by: CON JOHNSON Date: 09/12/2024 05:06 Dictated By: Con Johnson M.D. Signed By:09/12/24 0508 DD/ 050 TD/TT: Service Observer Chief: us Dagmar Loredo DO [facility] Final Result documented in this encounter Visit Diagnoses Not on filedocumented in this encounter Care Teams Back Pad Inspector Relationship Specialty Start Date End Date Natty Pearson PA [address] [place] [address] [place] [address] [facility] 01/21/24 documented as of this encounter
--- OUTSIDE RECORDS SUMMARY | 2025-04-08 05:02 | XMS_ITS | Encounter Summary ---
Author Organization [facility] Address [address] [place] [address] Care Team Providers Care Bar Porter Name Role Phone Yamile Culp CAFETERIA FOOD SERVER Unavailable [phone] Natty Pearson Unavailable Encounter Details Date Type Department Care Team (Late st Contact Info) Description 06/11/2023 Abstract [facility] OB [address] [facility] [place] [id number] Natty Pearson PA [address] [facility] [address] [place], [facility] Social History Tobacco Use Types Packs/Day Years [...] on filedocumented in this encounter Care Teams Bar Porter Relationship Specialty Start Date End Date Yamile Culp NP PCP - [facility] AFFAIRS SPECIALIST 04/21/23 Natty Pearson PA [address] [facility] [address] [place], [place] [id number] PCP - [facility] 01/21/24 documented as of this encounter
--- OUTSIDE RECORDS SUMMARY | 2025-04-08 05:02 | XMS_ITS | Clinical Summary ---
Author Organization [facility] Address [address] [place] [address] Care Team Providers Care Cutting Machine Tender Name Role Phone Natty Pearson Unavailable Allergies No known active allergies Medications No known medications Active Problems Problem Noted Date Diagnosed Date Third trimester ([facility]) 03/25/2025 37 weeks gestation of ([facility]) 2024 Estimated Date of Delivery Comme nts Yes 04/15/2025 Based on Ultraso und Encounters Date Type Department Care Team Description 04/02/2025 Abstract [facility] OB [address] [place] [phone] Isael Loredo DO 04/01/2025 3:40 PM EDT Routine [facility] OB [address] [place] [phone] Isael Loredo DO 38 weeks gestation of ([facility]); Third trimester ([facility]) 04/01/2025 Bamboo flowsheet [facility] OB [address] [place] [address] Isael Loredo DO 03/25/2025 3:00 PM EDT Routine [facility] [address] [facility] [place] [address] Isael Loredo DO Third trimester ([facility]); 37 weeks gestation of ([facility]) 03/25/2025 Bamboo flowsheet [facility] OB [address] [place] [address] Isael Loredo DO 03/18/2025 2:50 PM EDT Routine [facility] OB [address] [place] [address] Isael Loredo, 36 weeks gestation of ([facility]); Third trimester ([facility]) 03/18/2025 Bamboo flowsheet [facility] OB [address] [facility] [place] [address] Isael Loredo, 03/10/2025 1:00 PM EDT Routine [facility] OB [address] [facility] [place] [address] Natty Pearson PA Third trimester ([facility]); 34 weeks gestation of ([facility]) 03/10/2025 Bamboo flowsheet [facility] OB [address] [place] [address] Natty Pearson PA 03/09/2025 Patient Outreach [facility] [address] [place] [address] Natty Castle LPN 02/17/2025 Clinisync Result Encounter [facility] External Department Unsolicited Isael Loredo, 02/11/2025 1:40 PM EDT Routine [facility] OB [address] [facility] [place] [address] Isael Loredo, Third trimester ([facility]); 31 weeks gestation of ([facility]); Diabetes mellitus screening 02/11/2025 Bamboo flowsheet [facility] OB [address] [facility] [place] [address] Isael Loredo, 02/05/2025 3:00 PM EDT Ancillary Procedure [facility] OB [address] [facility] [place] [address] size inconsistent with dates ([facility]) 01/28/2025 9:00 AM EDT Routine [facility] OB [address] [facility] [place] [address] Natty Pearson PA size inconsistent with dates ([facility]) (Primary Dx); Second trimester ([facility]); 28 weeks gestation of ([facility]) 01/28/2025 Bamboo flowsheet [facility] OB [address] [facility] [place] [address] Natty Pearson PA 01/12/2025 9:50 AM EDT Routine [facility] OB [address] [place] [address] [place] [address] Isael Loredo DO Second trimester ([facility]); 26 weeks gestation of ([facility]); Diabetes mellitus screening 01/12/2025 Bamboo flowsheet [facility] OB [address] [place] [address] [place] [address] Isael Loredo DO from Last 3 Months Social History Tobacco Use Types Packs/Day Years Used Date Smoking Tobacco: Never Assessed Estimated Date of Delivery Comme nts Yes 04/15/2025 Based on Ultraso und Sex and Gender Information Value Date Recorded Sex Assigned at Not on file Legal Sex Female 1:18 PM EDT Gender Identity Not on file Sexual Orientation Not on file Last Filed Vital Signs Vital Sign Reading Time Taken Comments Blood Pressure 110/64 04/01/2025 3:51 PM EDT Pulse - - Temperature - - Respiratory Rate - - Oxygen Saturation - - Inhaled Oxygen Concentration - - Weight 68.9 kg (152 lb) 04/01/2025 3:51 PM EDT Height 157.5 cm (5' 2 ) 07/31/2023 11:52 AM EDT Body Mass Index 27.8 07/31/2023 11:52 AM EDT Plan of Treatment Health Maintenance Due Date Last Done Comments Influenza Vaccine (Season Ended) 2025 Procedures Procedure Name Priority Date/Time Associated Diagnosis Comments POCT URINALYSIS DIPSTICK Routine 04/01/2025 3:57 PM EDT 38 weeks gestation of ([facility]) Third trimester ([facility]) POCT URINALYSIS DIPSTICK Routine 03/25/2025 3:16 PM EDT Third trimester ([facility]) 37 weeks gestation of ([facility]) POCT URINALYSIS DIPSTICK Routine 03/18/2025 3:12 PM EDT 36 weeks gestation of ([facility]) Third trimester ([facility]) POCT URINALYSIS DIPSTICK Routine 03/10/2025 1:43 PM EDT Third trimester ([facility]) MLR HEMOGLOBIN A1C Routine 02/17/2025 3: 21 PM EDT POCT URINALYSIS DIPSTICK Routine 02/11/2025 4:06 PM EDT Third trimester ([facility]) US OB FOLLOW UP TRANSABDOMINAL APPROACH Routine 02/05/2025 3:21 PM EDT size inconsistent with dates ([facility]) from Last 3 Months Results * (ABNORMAL) POCT urinalysis dipstick manually resulted (04/01/2025 3:57 PM EDT) Only the most recent of5 resultswithin the time period is included. Color, UA Yellow Clarity, UA Clear Glucose, [...] - Positive Urine 04/01/2025 3:57 PM EDT us Isael Loredo DO POINT OF CARE TEST ENTER/EDIT OR DERABLES Final Result * MLR HEMOGLOBIN A1C (02/17/2025 3:21 PM EDT) GLYCOHEMOGLOBIN A1C 5.4 4.5 - 6.2 % [facility] Comment: ADA RECOMMENDED LIMIT 4.0 - 6.0 ADA THERAPEUTIC TARGET < 7.0 ACTION SUGGESTED > 7.0 ESTIMATED AVERAGE GLUCOSE 108 mg/dL TB 02/17/2025 3:21 PM EDT 02/17/2025 3:21 PM EDT Narrative [facility] - 02/17/2025 3:54 PM EDT us Isael Facundo DO [facility] Final Result [facility] * US OB follow up transabdominal approach (02/05/2025 3:21 PM EDT) Anatomical Region Laterality Modality Body Ultrasound 02/07/2025 6:53 PM EDT Narrative 02/09/2025 6:37 AM EDT EXAM: US OB FOLLOW UP TRANSABDOMINAL APPROACH [...] II, MD, PHD at 07-Feb-2025 06:51:43 PM [facility] Procedure Note Katlyn Van MD - 02/09/2025 EXAM: US OB FOLLOW UP TRANSABDOMINAL APPROACH HISTORY: Inconsistent size. COMPARISON: Ob ultrasound 12/29/2024. TECHNIQUE: Two-dimensional transabdominal grayscale ultrasound imaging ofthe pelvis was performed. FINDINGS: Gestation: Single Presentation: Cephalic Cardiac Activity: 143 beats per minute Placental Location: Anterior with no sonographic abnormalitiesidentified. Cervical canal: Not visualized Amniotic Fluid Index: 13.9 cm MEASUREMENTS: BPD: 7.6 cm EGA: 30 weeks 2 days HC: 27.5 cm EGA: 30 weeks 1 days AC: 26.6 cm EGA: 30 weeks 5 days FL: 6.0 cm EGA: 31 weeks 1 days HC/AC Ratio: 1.04 The gestational age by today's ultrasound is 30 weeks 4 days (+/- 15 daysgestation). Estimated Weight: 1622 grams, +/- 243 grams ( 3 lb 9 oz). Weight Percentile for gestational age: 57 % IMPRESSION: 1. Single, live intrauterine gestation 30 weeks, 1 days by LMP. Today'sultrasound measurements correlate with a gestational age of 30 weeks 4days. Estimated weight is 1622 grams, +/- 243 grams ( 3 lb 9 oz)which correlates to 57 %. KIYA is 04/12/2025. Interpreted by: Electronically signed by KATLYN VAN II, MD, PHD [id number] 06:51:43 PM [facility] us Natty MEHTA IMG OB US PROCEDURES Final Resul t from Last 3 Months Insurance [employer] Care Teams Cutting Machine Tender Relationship Specialty Start Date End Date Natty Pearson PA [address] [place] [address] [place] [address] [facility] 01/21/24
--- OUTSIDE RECORDS SUMMARY | 2025-04-08 05:02 | XMS_ITS | Encounter Summary ---
Author Organization [facility] Address [address] [facility] [email or web address] [address] Care Team Providers Care Guide Delegate Name Role Phone Yamile Culp FRONT END LOADER OPERATOR Unavailable Natty Pearson Unavailable Encounter Details Date Type Department Care Team (Late st Contact Info) Description 08/29/2023 Clinisync Result Encounter [facility] External Department Unsolicited Dagmar Loredo, DO [address] [facility] [place] [address] Social History Tobacco Use Types [...] Priority Date/Time Associated Diagnosis Comments US OB BPP W NON-STRESS 08/29/2023 3:36 PM EST documented in this encounter Results * US OB BPP W NON-STRESS (08/29/2023 3:36 PM EST) Anatomical Region Laterality Modality Other 08/29/2023 3:36 PM EST Narrative 08/29/2023 3:36 PM EST The [address] [address] Ultrasound Report Signed Patient: CAROLE BARAHONA MR#: [id number] : 2005 Acct:[id number] Age/Sex: 17 / F ADM Date: 08/28/23 Loc: US Attending Dr: Dagmar Loredo D.O. Ordering Physician: Dagmar Loredo D.O. Date of Service: 08/28/23 Procedure(s): US OB BPP w non-stress Accession Number(s): [id number] cc: Dagmar Loredo D.O.; Physician,Non-Staff Louise The [address] [address] Patient Name: CAROLE BARAHONA MRN: [facility]:[id number] date: 2005 Sex: F Assigned Patient Location: [facility] Current Patient Location: [facility] Accession/Order Number: [id number] Exam Date: 08/28/2023 17:15 Report Date: 08/29/2023 15:36 At the request of: DAGMAR LOREDO Procedure: US OB BPP w non-stress EXAMINATION: US OB BPP w non-stress HISTORY: placental lakes COMPARISON: No relevant comparison available. TECHNIQUE: Ultrasound biophysical profile was performed in the radiology department. BREATHING MOVEMENTS: 2.0 GROSS BODY MOVEMENTS: 2.0 TONE: 2.0 QUALITATIVE AMNIOTIC FLUID VOLUME: 2.0 PRESENTATION: CEPHALIC HEART RATE: 157.9 bpm bpm. AMNIOTIC FLUID VOLUME: 12.9 cm GESTATIONAL AGE: 33 weeks 1 days CONCLUSION: 1. Total biophysical profile score 8.0. 2. 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 Electronically authenticated by: CON JOHNSON Date: 08/29/2023 15:36 Dictated By: Con Johnson M.D. Signed By: 08/29/23 1539 DD/ 1536 TD/TT: Speech And Language Clinician: Procedure Note Radiology, Radiologist, MD - 08/29/2023 [place] [address] Ultrasound Report Signed Patient: CAROLE BARAHONA R#: [id number] : 2005Acct:[id number] Age/Sex: 17 / FADM Date: 08/28/23 Loc: US Attending Dr: Dagmar Loredo D.O. Ordering Physician: Dagmar Loredo D.O. Date of Service: 08/28/23 Procedure(s): US OB BPP w non-stress Accession Number(s): [id number] cc: Dagmar Loredo D.O.; Physician,Non-Staff MMartina The [address] [address] Patient Name: CAROLE BARAHONA MRN: [id number] date: 2005 Sex: F Assigned Patient Location: [facility] Current Patient Location: [facility] Accession/Order Number: [id number] Exam Date: 08/28/2023 17:15 Report Date: 08/29/2023 15:36 At the request of: DAGMAR LOREDO Procedure: US OB BPP w non-stress EXAMINATION: US OB BPP w non-stress HISTORY: placental lakes COMPARISON: No relevant comparison available. TECHNIQUE: Ultrasound biophysical profile was performed in the radiology department. BREATHING MOVEMENTS: 2.0 GROSS BODY MOVEMENTS: 2.0 TONE: 2.0 QUALITATIVE AMNIOTIC FLUID VOLUME: 2.0 PRESENTATION: CEPHALIC HEART RATE: 157.9 bpm bpm. AMNIOTIC FLUID VOLUME: 12.9 cm GESTATIONAL AGE: 33 weeks 1 days CONCLUSION: 1. Total biophysical profile score 8.0. 2. 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 Electronically authenticated by: CON JOHNSON Date: 08/29/2023 15:36 Dictated By: Con Johnson M.D. Signed By:08/29/23 1539 DD/ 1536 TD/TT: Speech And Language Clinician: Dagmar Loredo DO [facility] Final Result documented in this encounter Visit Diagnoses Not on filedocumented in this encounter Care Teams Guide Delegate Relationship Specialty Start Date End Date Yamile Culp NP PCP - [facility] 04/21/23 Natty Pearson PA [address] [place] [address] [place] [address] PCP - [facility] 01/21/24 documented as of this encounter
--- OUTSIDE RECORDS SUMMARY | 2025-04-08 05:02 | XMS_ITS ---
Author Organization [facility] Source Produ ction (ClinicalSummary Clone) Address Unknown Care Team Providers Care Fiscal Accounting Clerk Name Role Phone Unavailable Primary Care Physician Unavailab le Results * [UNITY] ANEUPLOIDY NIPT Performed by: [employer] Player Component Value Range Date Fraction 10.7% 10/13/2024 09 :39 pm UTC Sex Chromosome Aneuploidy NOT DETECTED 09:39 pm UTC Monosomy X LOW RISK <1 in 10,000 2023 09:39 pm UTC Trisomy 13 LOW RISK <1 in 10,000 2023 09:39 pm UTC Trisomy 18 LOW RISK <1 in 10,000 2023 09:39 pm UTC Trisomy 21 LOW RISK <1 in 10,000 2023 09:39 pm UTC Sex FEMALE 10/13/2024 09:3 9 pm UTC Gestation CANAS 10/13/20 09:39 pm UTC For detailed report, see PDF See PDF 10/13/2024 09:39 pm UTC 10/13/2024 09:3 9 pm UTC Social History Observation Value Start Date End Date
--- OUTSIDE RECORDS SUMMARY | 2025-04-08 05:02 | XMS_ITS | Encounter Summary ---
Author Organization [facility] Address [address] [place] [address] Care Team Providers Care Certified Scrum Master Name Role Phone Yamile Culp DIRECTOR OF PUPIL PERSONNEL PROGRAM Unavailable [phone] Natty Pearson Unavailable Encounter Details Date Type Department Care Team (Late st Contact Info) Description 08/27/2023 Clinisync Result Encounter [facility] External Department Unsolicited Dagmar Loredo, DO [address] [facility] [place] [address] Social History Tobacco Use Types [...] Priority Date/Time Associated Diagnosis Comments US OB PLACENTA 08/27/2023 3:14 PM EST documented in this encounter Results * US OB PLACENTA (08/27/2023 3:14 PM EST) Anatomical Region Laterality Modality Other 08/27/2023 3:14 PM EST Narrative 08/27/2023 3:14 PM EST The [facility] [address] [place] [address] Ultrasound Report Signed Patient: CAROLE BARAHONA MR#: [id number] : 2005 Acct:[id number] Age/Sex: 17 / F ADM Date: 08/27/23 Loc: [facility] 254-[address]: Dagmar Loredo D.O. Ordering Physician: Dagmar Loredo D.O. Date of Service: 08/27/23 Procedure(s): US OB placenta Accession Number(s): [id number] cc: Dagmar Loredo D.O.; Physician,Non-Staff Louise The [address] [address] Patient Name: CAROLE BARAHONA MRN: [id number] date: 2005 Sex: F Assigned Patient Location: [facility] Current Patient Location: [facility] Accession/Order Number: [id number] Exam Date: 08/27/2023 14:08 Report Date: 08/27/2023 15:14 At the request of: DAGMAR LOREDO Procedure: US OB placenta EXAM: US OB placenta, US OB cervical [...] Loredo by telephone 3:13 PM US/US OB placenta IMPRESSION: Closed cervix measuring 3.2 cm in length Area of anechoic echogenicity of the placental myometrial interface, while this could represent a deep placental rivas, consideration should be given to a small retroplacental hematoma Electronically authenticated by: AFTAB HUANG Date: 08/27/2023 15:14 Dictated By: Aftab Huang M.D. Signed By: 08/27/23 1516 DD/ 1514 TD/TT: Dog Food Dough Mixer: Procedure Note Radiology, Radiologist, MD - 08/27/[address] [address] Ultrasound Report Signed Patient: CAROLE BARAHONA RMR#: [id number] : 2005Acct:[id number] Age/Sex: 17 / FADM Date: 08/27/23 Loc: [facility] 254-[address]: Dagmar Loredo D.O. Ordering Physician: Dagmar Loredo D.O. Date of Service: 08/27/23 Procedure(s): US OB placenta Accession Number(s): [id number] cc: Dagmar Loerdo D.O.; Physician,Non-Staff Louise [place] [id number] Patient Name: CAROLE BARAHONA MRN: [facility]:[id number] date: 2005 Sex: F Assigned Patient Location: [facility] Current Patient Location: [facility] Accession/Order Number: [id number] Exam Date: 08/27/2023 14:08 Report Date: 08/27/2023 15:14 At the request of: DAGMAR LOREDO Procedure: US OB placenta EXAM: US OB placenta, US OB cervical [...] Loredo by telephone 3:13 PM US/US OB placenta IMPRESSION: Closed cervix measuring 3.2 cm in length Area of anechoic echogenicity of the placental myometrial interface, while this could represent a deep placental rivas, consideration should be given to a small retroplacental hematoma Electronically authenticated by: AFTAB HUANG Date: 08/27/2023 15:14 Dictated By: Aftab Huang M.D. Signed By:08/27/23 1516 DD/ 1514 TD/TT: Dog Food Dough Mixer: us Dagmar Loredo DO [facility] Final Result documented in this encounter Visit Diagnoses Not on filedocumented in this encounter Care Teams Certified Scrum Master Relationship Specialty Start Date End Date Yamile Culp NP [facility] 04/21/23 Natty Pearson PA [address] [place] [address] Dr [place], [facility] 01/21/24 documented as of this encounter
--- OUTSIDE RECORDS SUMMARY | 2025-04-08 05:02 | XMS_ITS | Encounter Summary ---
Author Organization [facility] Address [address] [place] [address] Care Team Providers Care Brim Buster Name Role Phone aYmile Culp [employer] WRESTLER Unavailable [phone] Natty Pearson Unavailable Encounter Details Date Type Department Care Team (Late st Contact Info) Description 08/09/2023 Clinisync Result Encounter [facility] External Department Unsolicited Dagmar Loredo, DO [address] [facility] [place] [address] Social History Tobacco Use Types [...] Priority Date/Time Associated Diagnosis Comments US OB GROWTH 08/09/2023 2:13 PM EDT documented in this encounter Results * US OB GROWTH (08/09/2023 2:13 PM EDT) Anatomical Region Laterality Modality Other 08/09/2023 2:13 PM EDT Narrative 08/09/2023 2:13 PM EDT The [address] [address] Ultrasound Report Signed Patient: CAROLE BARAHONA MR#: [id number] : 2005 Acct:[id number] Age/Sex: 17 / F ADM Date: 08/09/23 Loc: US Attending Dr: Dagmar Loredo D.O. Ordering Physician: Dagmar Loredo D.O. Date of Service: 08/09/23 Procedure(s): US OB growth Accession Number(s): [id number] cc: Dagmar Loredo D.O.; Physician,Non-Staff [place] [address] Patient Name: CAROLE BARAHONA MRN: [facility]:[id number] date: 2005 Sex: F Assigned Patient Location: US Current Patient Location: US Accession/Order Number: [id number] Exam Date: 08/09/2023 10:58 Report Date: 08/09/2023 14:13 At the request of: DAGMAR LOREDO Procedure: US OB growth EXAMINATION: US OB growth HISTORY: SIZE INCONSISTENT WITH DATES COMPARISON: No relevant comparison available. FINDINGS: Heart Rate: 147.0 bpm Amniotic Fluid Volume: 13.3 cm Number: 1.0 Position: Breech presentation, longitudinal lie Maximum Vertical Pocket: 4.9 cm cm 3.0 cm cm 3.6 cm cm 1.8 cm cm BIOMETRY: BPD: 7.8 cm cm; 31 weeks 3 days; 68% HC: 28.9 cmcm; 31 weeks 6 days, 54% AC: 25.9 cm cm; 30 weeks 0 days, 33% FL: 5.9 cm cm; 30 weeks 5 days; 42.7 % % EFW: 1586.5 grams, 3 lbs. 8 oz., 40% FL/AC: 22.8 FL/BPD: 75.2 HC/AC: 1.1 GESTATIONAL AGE: Age by EDC: 30 weeks 3 days KIYA by EDC: 10/15/2023 Age by US: 31 weeks 0 days KIYA by US: 10/11/2023 US/US OB growth IMPRESSION: Normal interval growth Electronically authenticated by: AFTAB HUANG Date: 08/09/2023 14:13 Dictated By: Aftab Huang M.D. Signed By: 08/09/231415 DD/ 12 TD/TT: Lidder: Procedure Note Radiology, Radiologist, - 08/09/2023 [place] [address] Ultrasound Report Signed Patient: CAROLE BARAHONA RMR#: [id number] : 2005Acct:[id number] Age/Sex: 17 / FADM Date: 08/09/23 Loc: US Attending Dr: Dagmar Loredo D.O. Ordering Physician: Dagmar Loredo D.O. Date of Service: 08/09/23 Procedure(s): US OB growth Accession Number(s): [id number] cc: Dagmar Loredo D.O.; Physician,Non-Staff [address] [address] Patient Name: CAROLE BARAHONA MRN: [facility]:[id number] date: 2005 Sex: F Assigned Patient Location: US Current Patient Location: US Accession/Order Number: [id number] Exam Date: 08/09/2023 10:58 Report Date: 08/09/2023 14:13 At the request of: DAGMAR LOREDO Procedure: US OB growth EXAMINATION: US OB growth HISTORY: SIZE INCONSISTENT WITH DATES COMPARISON: No relevant comparison available. FINDINGS: Heart Rate: 147.0 bpm Amniotic Fluid Volume: 13.3 cm Number: 1.0 Position: Breech presentation, longitudinal lie Maximum Vertical Pocket: 4.9 cm cm 3.0 cm cm 3.6 cm cm 1.8 cm cm BIOMETRY: BPD: 7.8 cm cm; 31 weeks 3 days; 68% HC: 28.9 cmcm; 31 weeks 6 days, 54% AC: 25.9 cm cm; 30 weeks 0 days, 33% FL: 5.9 cm cm; 30 weeks 5 days; 42.7 % % EFW: 1586.5 grams, 3 lbs. 8 oz., 40% FL/AC: 22.8 FL/BPD: 75.2 HC/AC: 1.1 GESTATIONAL AGE: Age by EDC: 30 weeks 3 days KIYA by EDC: 10/15/2023 Age by US: 31 weeks 0 days KIYA by US: 10/11/2023 US/US OB growth IMPRESSION: Normal interval growth Electronically authenticated by: AFTAB HUANG Date: 08/09/2023 14:13 Dictated By: Aftab Huang M.D. Signed By:08/09/23 1416 DD/ 141 TD/TT: Lidder: us Dagmar Loredo DO [facility] Final Result documented in this encounter Visit Diagnoses Not on filedocumented in this encounter Care Teams Brim Buster Relationship Specialty Start Date End Date Yamile Culp NP PCP - [facility] 04/21/23 Natty Pearson PA [address] [place] [address] [place] [address] [facility] 01/21/24 documented as of this encounter
--- OUTSIDE RECORDS SUMMARY | 2025-04-08 05:02 | XMS_ITS | Encounter Summary ---
Author Organization [facility] Address [address] [place] [address] Care Team Providers Care Airport Representative Name Role Phone Natty Pearson Unavailable Encounter Details Date Type Department Care Team (Late st Contact Info) Description 10/06/2024 Abstract [facility] BCP OB [address] [place] [phone] Isael Loredo DO [address] [place], [id number] Social History Tobacco Use Types Packs/Day Years [...] on filedocumented in this encounter Care Teams Airport Representative Relationship Specialty Start Date End Date Natty Pearson PA [address] [place], [id number] PCP - [facility] 01/21/24 documented as of this encounter
--- OUTSIDE RECORDS SUMMARY | 2025-04-08 05:02 | XMS_ITS | Encounter Summary ---
Author Organization [facility] Address [address] [place] [address] Care Team Providers Care Digital Engineer Name Role Phone Natty Pearson Unavailable Encounter Details Date Type Department Care Team (Late st Contact Info) Description 11/20/2024 Orders Only [facility] [address] [facility] [phone] Shanell Casey MA [address] [place] [address] Social History Tobacco Use Types Packs/Day Years [...] Procedure Name Priority Date/Time Associated Diagnosis Comments PAP SMEAR Routine 11/13/2024 12:00 AM EST documented in this encounter Results * Pap Smear (11/13/2024 12:00 AM EST) Swab Cervical swab / Unknown us Natty [facility] ORDERABLES Final Re sult EXTERNAL LAB documented in this encounter Visit Diagnoses Not on filedocumented in this encounter Care Teams Digital Engineer Relationship Specialty Start Date End Date Natty Pearson PA [address] [place], [place] [phone] PCP - [facility] 01/21/24 documented as of this encounter
--- OUTSIDE RECORDS SUMMARY | 2025-04-08 05:02 | XMS_ITS | Encounter Summary ---
Author Organization [facility] Address [address] [place] [address] Care Team Providers Care Rn First Assistant Name Role Phone Natty Pearson Unavailable Encounter Details Date Type Department Care Team (Late st Contact Info) Description 09/11/2024 Abstract [facility] BCP OB [address] [place] [phone] Isael Loredo DO [address] [place], [facility] Social History Tobacco Use Types Packs/Day [...] on filedocumented in this encounter Care Teams Rn First Assistant Relationship Specialty Start Date End Date Natyt Pearson PA [address] [place], [facility] PCP - [facility] 01/21/24 documented as of this encounter
--- OUTSIDE RECORDS SUMMARY | 2025-04-08 05:02 | XMS_ITS | Clinical Summary ---
Author Organization [facility] Address [id number] [address] [place] [address] Care Team Providers Care Child Care Cook Name Role Phone No Pcp, No Pcp Primary Care Provider Unavailabl e Medications naproxen (NAPROSYN) 500 mg tablet Take 1 tablet (500 mg total) by mouth in the morning and 1 tablet (500 mg total) in the evening. Take with meals. 30 tablet 04/14/2024 Active Social History Tobacco Use Types Packs/Day Years Used Date Smoking Tobacco: Never Assessed Childcare Answer Date Recorded Childcare Unknown 03/31/2019 Employment Answer Date Recorded Employment Unknown 03/31/2019 Hunger Screening Answer Date Recorded Within the past 12 months we worried whether our food would run out before we got money to buy more. Never True 04/14/2024 Within the past 12 months th e food we bought just didn't last and we didn't have money to get more. Never True 04/14/2024 Comments Unknown Sex and Gender Information Value Date Recorded Sex Assigned at Not on file Legal Sex Female 2:55 PM EDT Gender Identity Not on file Sexual Orientation Not on file Last Filed Vital Signs Vital Sign Reading Time Taken Comments Blood Pressure 129/86 04/14/2024 5:22 AM EDT Pulse 110 04/14/2024 5:24 AM EDT Temperature 37.1 C (98.7 F) 04/14/2024 5:25 AM EDT Respiratory Rate 18 04/14/2024 5:22 AM EDT Oxygen Saturation 97% 04/14/2024 5:22 AM EDT Inhaled Oxygen Concentration - - Weight 54.4 kg (120 lb) 04/14/2024 5:22 AM EDT Height 157.5 cm (5' 2 ) 04/14/2024 5:22 AM EDT Body Mass Index 21.95 04/14/2024 5:22 AM EDT Plan of Treatment Not on file Medical Devices Not on file Insurance [employer] [place] [id number] Care Teams Child Care Cook Relationship Specialty Start Date End Date No Pcp, [place] [address] PCP - General Family Medicine 04/14/24
[2025-04-08 05:46] LABS: Hematocrit 28.7 % (36.0-48.0); Mean Corpuscular HGB Conc 31.4 g/dL (29.9-35.2); Mean Corpuscular Hemoglobin 21.9 pg (26.7-34.0); Mean Corpuscular Volume 69.8 fL (81.0-99.0); Mean Platelet Volume 8.7 fL (9.5-13.5); Platelet Count 264 10^3/uL (150-450); Red Blood Count 4.11 10^6/uL (4.20-5.40); Red Cell Distribution Width 15.9 % (11.0-15.0); White Blood Count 10.1 10^3/uL (4.0-11.0)
[2025-04-08 06:05] LABS: Amphetamine Screen Urine NEGATIVE (NEGATIVE); Barbiturates Screen Urine NEGATIVE (NEGATIVE); Benzodiazepines Screen Urine NEGATIVE (NEGATIVE); Buprenorphine Screen Urine NEGATIVE (NEGATIVE); Cannabinoid Screen Urine NEGATIVE (NEGATIVE); Cocaine Screen Urine NEGATIVE (NEGATIVE); Methadone Screen Urine NEGATIVE (NEGATIVE); Methamphetamines Screen Urine NEGATIVE (NEGATIVE); Opiate Screen Urine NEGATIVE (NEGATIVE); Oxycodone Screen Urine NEGATIVE (NEGATIVE); Phencyclidine Screen Urine NEGATIVE (NEGATIVE); Tricyclic Antidepressant Urine NEGATIVE (NEGATIVE)
[2025-04-08] MEDS: 0.9 % SODIUM CHLORIDE 1,000 ML 125 ML IV ×2 (06:09→09:30)
[2025-04-08] MEDS: OXYTOCIN/0.9 % SODIUM CHLORIDE 10 UNITS/500 ML PLAST..BAG 6 UNIT IV (06:09)
[2025-04-08] MEDS: ROPIVACAINE HCL/PF 400 MG/200 ML PREMIX 8 MG EPIDURAL (09:29)
[2025-04-08] MEDS: OXYTOCIN/0.9 % SODIUM CHLORIDE 20 UNITS/1,000 ML PLAST..BAG 125 UNIT IV (10:56)
--- NOTE | 2025-04-08 12:23 | PM.OBPRCVD ---
Procedure Intrapartal events: None Induction method: per pitocin protocol Delivery augmentation: rupture of membranes and pitocin Delivery monitor: external FHT and external uterine Route of delivery: Episiotomy Description: none L&D Laceration Description: none Estimated blood loss (mL): 200 Anesthesia type: Epidural Disposition: floor Delivery date: 04/08/25 Gender: female presentation: vertex Placental delivery description: Spontaneous cord description: 3 Vessels
[2025-04-08] MEDS: BENZOCAINE/MENTHOL 85 GRAM SPRAY BOTTLE 1 APPLIC TOPICAL (13:40)
[2025-04-08] MEDS: IBUPROFEN 600 MG TABLET PO ×2 (13:40→21:19)
[2025-04-09 00:06] VITALS: BP 128/74; PULSE 93
[2025-04-09 06:41] LABS: Basophils Absolute Auto 0.1 10^3/uL (0.0-0.1); Basophils Percent Auto 0.4 % (0.2-2.0); Eosinophils Absolute Auto 0.1 10^3/uL (0.0-0.7); Eosinophils Percent Auto 0.6 % (0.9-7.0); Hemoglobin 9.3 g/dL (12.0-16.0); Immature Granulocytes Abs Auto 0.12 10^3/uL (0.00-0.03); Immature Granulocytes Pct Auto 0.9 % (0.0-0.5); Lymphocytes Absolute Auto 3.1 10^3/uL (1.2-3.8); Lymphocytes Percent Auto 22.8 % (20.5-60.0); Mean Corpuscular Hemoglobin 21.3 pg (26.7-34.0); Mean Corpuscular Volume 71.1 fL (81.0-99.0); Mean Platelet Volume 8.8 fL (9.5-13.5); Monocytes Absolute Auto 1.1 10^3/uL (0.3-0.8); Monocytes Percent Auto 8.2 % (1.7-12.0); Neutrophils Absolute Auto 9.1 10^3/uL (1.4-6.5); Neutrophils Percent Auto 67.1 % (43.0-75.0); Platelet Count 272 10^3/uL (150-450); Red Blood Count 4.36 10^6/uL (4.20-5.40); Red Cell Distribution Width 15.9 % (11.0-15.0); White Blood Count 13.6 10^3/uL (4.0-11.0)
--- NOTE | 2025-04-09 09:23 | P.OBPN_ITS ---
OB - PN: Subj Subjective Patient comments: no complaints [place] status: doing well feeding status: exclusively Exam Constitutional Vital Signs, click to edit/add: Last Vital Signs Temp 98.3 F 04/08/25 11:03 Pulse 93 H 04/09/25 00:06 BP 128/74 04/09/25 00:06 O2 Del Method Room Air 04/09/25 00:00 Documenting provider has reviewed patient's vital signs: yes Common normals: no apparent distress General appearance: cooperative Orientation/consciousness: Yes awake, Yes oriented to person, Yes oriented to place and Yes oriented to time HENMT Common normals: normocephalic Eye Common normals: EOMs intact bilaterally General eye: normal appearance of both eyes Neck & C-Spine Common normals: full ROM Lymph Lymphatic: no lymphadenopathy noted Chest Common normals: inspection of chest normal Respiratory Common normals: normal respiratory effort Effort & inspection: able to speak in complete sentences Auscultation: clear to auscultation bilaterally Cardio Common normals: regular rate Rate: regular rate Rhythm: regular rhythm GI Common normals: Normal to inspection, nondistended, normoactive bowel sounds present Inspection: normal to inspection Auscultation: normoactive bowel sounds Palpation: soft Common normals: no CVA tenderness Back & Pelvis Common normals: no CVA tenderness Extremity Common normals: normal to inspection Neuro Common normals: oriented x3 Sensorium/orientation: awake, alert, oriented to person, oriented to place and oriented to time Gait (neuro): normal gait Psych Common normals: mental status grossly normal, thought process normal, cooperative, affect normal, speech normal, activity/motor behavior normal, denies hallucinations, denies homicidal ideation and denies suicidal ideation Attitude: calm Results Labs Labs: Short CBC 04/09/25 Range/Units 06:34 WBC 13.6 H (4.0-11.0) 10^3/uL Hgb 9.3 L (12.0-16.0) g/dL Hct 31.0 L (36.0-48.0) % Plt Count 272 (150-450) 10^3/uL OB - PN: A/P Plan - Vaginal Delivery day: 1 Plan: discharge home Time Spent with Patient Time: Total time spent is greater than 50% in coordination of care (as documented) at patient's floor/unit and/or counseling patient: Total time spent with greater than 50% in coordination of care (as documented) at patient's floor/unit and/or counseling patient: less than 15 minutes
[2025-04-09 10:43] VITALS: BP 104/71; PULSE 85; TEMP 36.3
== END 2025-04-09 14:30 | disposition home or self-care (01) | DRG 560 ==
PROVIDERS: Admitting Provider Obstetrics & Gynecology; Visit Provider Obstetrics & Gynecology
DX: O99.334 Smoking (tobacco) complicating childbirth (principal); F17.290 Nicotine dependence, other tobacco product, uncomplicated; Z3A.39 39 weeks gestation of pregnancy; Z37.0 Single live birth
CPT/HCPCS: 36415; 51702; 59050; 59410; 80307; 85025; 85027; 86850; 86900; 86901; J2795